=== PATIENT | female | born 1950 | race Caucasian/White ===

== ENCOUNTER → 2019-10-14 09:36 | Outpatient (BNVA) | payer MEDICARE, OTHER, SELFPAY | PROVIDERS: Family Provider Pediatrics; PCP Pediatrics; Visit Provider Internal Medicine Rheumatology | DX: M35.1 Other overlap syndromes (principal); M05.79 Rheumatoid arthritis with rheumatoid factor of multiple sites without organ or systems involvement; Z79.899 Other long term (current) drug therapy; Z79.52 Long term (current) use of systemic steroids | CPT/HCPCS: 36415; 82565; 84460; 85025; 85651; 86140; 99214 ==

== ENCOUNTER → 2019-10-17 17:01 | Outpatient (BNVA) | payer MEDICARE, OTHER, SELFPAY | PROVIDERS: Family Provider Pediatrics; PCP Pediatrics; Visit Provider Nurse Practitioner Family | DX: N39.0 Urinary tract infection, site not specified (principal) | CPT/HCPCS: 81003 ==

== ENCOUNTER → 2019-11-01 14:44 | Outpatient (BNVA) | payer MEDICARE, OTHER, SELFPAY | PROVIDERS: Family Provider Pediatrics; PCP Pediatrics; Referring Provider Internal Medicine Infectious Disease; Visit Provider Internal Medicine Rheumatology | DX: M32.9 Systemic lupus erythematosus, unspecified (principal); Z79.52 Long term (current) use of systemic steroids; M25.50 Pain in unspecified joint | CPT/HCPCS: 99214; G0463 ==

== ENCOUNTER → 2019-11-30 13:30 | Outpatient (BNVA) | payer MEDICARE, OTHER, SELFPAY | PROVIDERS: Family Provider Pediatrics; PCP Pediatrics; Visit Provider Internal Medicine Rheumatology | DX: M35.1 Other overlap syndromes (principal); Z79.52 Long term (current) use of systemic steroids; Z79.899 Other long term (current) drug therapy | CPT/HCPCS: 36415; 80076; 82565; 84439; 84443; 84481; 85025; 85651; 86140 ==

== ENCOUNTER → 2019-11-30 13:44 | Outpatient (BNVA) | payer MEDICARE, OTHER, SELFPAY | PROVIDERS: Family Provider Pediatrics; PCP Pediatrics | DX: M35.1 Other overlap syndromes (principal); Z79.52 Long term (current) use of systemic steroids; Z79.899 Other long term (current) drug therapy | CPT/HCPCS: 85025 ==

== ENCOUNTER 2019-12-06 09:27 | Outpatient (CLI) | payer MEDICARE, OTHER, SELFPAY ==
[2019-12-06 09:55] LABS: Basophils % 0.4 %; Eosinophils % 0.4 %; Hematocrit 46.2 % (37.0-47.0); Hemoglobin 14.3 g/dL (11.5-15.3); Lymphocytes # 0.8 10^3/uL (0.8-4.8); Lymphocytes % 16.2 %; Mean Corpuscular Hemoglobin 29.1 pg (28.0-34.0); Mean Corpuscular Volume 94.1 fL (81-99); Mean Platelet Volume 10.8 fL (7.4-10.4); Monocytes # 0.5 10^3/uL (0.2-0.9); Neutrophils # 3.8 10^3/uL (1.8-7.7); Neutrophils % 72.8 %; Nucleated Red Blood Cells % 0 %; Platelet Count 205 10^3/cmm (130-400); Red Blood Count 4.91 10^6/uL (4.1-5.3); Red Cell Distribution Width 14.5 % (12.1-15.1); White Blood Count 5.2 10^3/uL (4.0-10.0)
[2019-12-06 10:08] LABS: Blood Urea Nitrogen 36 mg/dL (8-23); C Reactive Protein 14.2 mg/L (0.0-4.9); Glomerular Filtration Rate 34.5 mL/min (90-130); Potassium 4.2 mmol/L (3.5-5.1); Sodium 142 mmol/L (136-145)
[2019-12-06 10:10] LABS: Complement C3 137 mg/dL (90-180)
[2019-12-06 10:18] LABS: Bilirubin Urine Neg (NEGATIVE); Blood Urine Neg (Negative); Glucose Urine UA Norm (Normal); Ketones Urine Negative (Negative); Leukocyte Esterase Urine Negative (Negative); Nitrate Urine Negative (Negative); Protein Urine Neg (Negative); Specific Gravity, Urine 1.025 (1.005-1.030); Urine Appearance Clear (CLEAR); Urine Color Yellow (Yellow); Urobilinogen Urine Norm (Negative)
[2019-12-06 10:28] LABS: Add Urine Culture? No; Bacteria Urine 1+; Mucus Urine TRACE; RBC Urine 0-4 /hpf (0-2); Squamous Epithelial Cell Urine RARE (0-5)
[2019-12-06 10:41] LABS: Urine Creatinine 137 mg/dL (28-217); Urine Protein Random 7 mg/dL
[2019-12-06 11:23] LABS: Urea Nitrogen,Urine Random 1147 mg/dL
== END 2019-12-06 09:28 | disposition home or self-care (01) ==
PROVIDERS: Family Provider Pediatrics; PCP Pediatrics; Visit Provider Internal Medicine Rheumatology
DX: M35.1 Other overlap syndromes (principal); Z79.52 Long term (current) use of systemic steroids; Z79.899 Other long term (current) drug therapy
CPT/HCPCS: 81001; 82565; 82570; 84132; 84156; 84295; 84520; 84540; 85025; 86140; 86160; 86225

== ENCOUNTER → 2019-12-28 14:32 | Outpatient (BNVA) | payer MEDICARE, OTHER, SELFPAY | PROVIDERS: Family Provider Pediatrics; PCP Pediatrics; Visit Provider Internal Medicine Rheumatology | DX: M35.9 Systemic involvement of connective tissue, unspecified (principal); Z79.899 Other long term (current) drug therapy; Z79.52 Long term (current) use of systemic steroids; R76.8 Other specified abnormal immunological findings in serum | CPT/HCPCS: 36415; 82565; 84520; 86140; G2012 ==

== ENCOUNTER → 2020-02-08 10:21 | Outpatient (BNVA) | payer MEDICARE, OTHER, SELFPAY | PROVIDERS: Family Provider Pediatrics; PCP Pediatrics; Visit Provider Internal Medicine Rheumatology | DX: Z79.899 Other long term (current) drug therapy (principal) | CPT/HCPCS: 36415; 80076; 82565; 85025; 85651; 86140 ==

== ENCOUNTER → 2020-03-21 15:24 | Outpatient (BNVA) | payer MEDICARE, OTHER, SELFPAY | PROVIDERS: Family Provider Pediatrics; PCP Pediatrics; Visit Provider Internal Medicine Rheumatology | DX: M32.19 Other organ or system involvement in systemic lupus erythematosus (principal); Z79.899 Other long term (current) drug therapy; R76.8 Other specified abnormal immunological findings in serum; Z79.52 Long term (current) use of systemic steroids; M19.90 Unspecified osteoarthritis, unspecified site; N28.9 Disorder of kidney and ureter, unspecified | CPT/HCPCS: 99214 ==

== ENCOUNTER → 2020-04-18 09:32 | Outpatient (BNVA) | payer MEDICARE, OTHER, SELFPAY | PROVIDERS: Family Provider Pediatrics; PCP Pediatrics; Visit Provider Internal Medicine Rheumatology | DX: M32.9 Systemic lupus erythematosus, unspecified (principal); M32.19 Other organ or system involvement in systemic lupus erythematosus; L93.2 Other local lupus erythematosus; M35.1 Other overlap syndromes; R76.8 Other specified abnormal immunological findings in serum; Z79.52 Long term (current) use of systemic steroids; Z79.899 Other long term (current) drug therapy | CPT/HCPCS: 36415; 80076; 81001; 82565; 82575; 84156; 85025; 85651; 86140; 86160 ==

== ENCOUNTER 2020-04-30 09:11 | Outpatient (CLI) | payer MEDICARE, OTHER, SELFPAY ==
[2020-04-30 10:16] LABS: Basophils % 0.9 %; Eosinophils # 0.1 10^3/uL (0.0-0.8); Eosinophils % 1.8 %; Hematocrit 42.5 % (37.0-47.0); Hemoglobin 12.9 g/dL (11.5-15.3); Lymphocytes # 0.9 10^3/uL (0.8-4.8); Lymphocytes % 27.3 %; Mean Corpuscular HGB Conc 30.4 g/dL (30.0-36.0); Mean Corpuscular Hemoglobin 29.9 pg (28.0-34.0); Mean Corpuscular Volume 98.6 fL (81-99); Mean Platelet Volume 12.3 fL (7.4-10.4); Monocytes # 0.4 10^3/uL (0.2-0.9); Monocytes % 11.6 %; Neutrophils # 1.96 10^3/uL (1.8-7.7); Neutrophils % 58.1 %; Nucleated Red Blood Cells % 0 %; Red Blood Count 4.31 10^6/uL (4.1-5.3); Red Cell Distribution Width 14.1 % (12.1-15.1); White Blood Count 3.4 10^3/uL (4.0-10.0)
[2020-04-30 10:22] LABS: Bilirubin Urine Neg (NEGATIVE); Blood Urine Neg (Negative); Glucose Urine UA Norm (Normal); Ketones Urine Negative (Negative); Leukocyte Esterase Urine Negative (Negative); Nitrate Urine Positive (Negative); Protein Urine Neg (Negative); Specific Gravity, Urine 1.025 (1.005-1.030); Urine Appearance Hazy (CLEAR); Urine Color Yellow (Yellow); Urobilinogen Urine Norm (Negative); pH Urine 5 (5-7)
[2020-04-30 10:23] LABS: Bacteria Urine 4+; Calcium Oxalate Crystals Urine 0-4 /hpf
[2020-04-30 10:24] LABS: Add Urine Culture? Yes; RBC Urine 0-4 /hpf (0-2); Squamous Epithelial Cell Urine 0-4 (0-5)
[2020-04-30 10:33] LABS: Alanine Aminotransferase 37 U/L (0-33); Albumin Level 3.8 g/dL (3.5-5.2); Alkaline Phosphatase 62 IU/L (35-105); Aspartate Amino Transferase 38 U/L (0-32); C Reactive Protein 6.7 mg/L (0.0-4.9); Globulin 3.1 g/dL (1.3-4.6); Total Bilirubin 0.5 mg/dL (0.15-1.2); Total Protein 6.9 g/dL (6.6-8.7)
[2020-04-30 10:40] LABS: Urine Creatinine 193 mg/dL (28-217); Urine Protein Random 14 mg/dL
[2020-04-30 10:49] LABS: Platelet Count 105 10^3/cmm (130-400)
[2020-04-30 10:50] LABS: Slide Review Slide Review Perform
[2020-04-30 11:01] LABS: Complement C3 113 mg/dL (90-180)
[2020-04-30 11:07] LABS: Erythrocyte Sedimentation Rate 19 mm/hr (0-15)
== END 2020-04-30 09:12 | disposition home or self-care (01) ==
LOC: LAB 09:16
PROVIDERS: PCP Pediatrics; Visit Provider Internal Medicine Rheumatology
DX: Z79.899 Other long term (current) drug therapy (principal); R76.8 Other specified abnormal immunological findings in serum
CPT/HCPCS: 80076; 81001; 82565; 82570; 84156; 85025; 85651; 86140; 86160

== ENCOUNTER → 2020-06-19 13:48 | Outpatient (BNVA) | payer MEDICARE, OTHER, SELFPAY | PROVIDERS: PCP Pediatrics; Visit Provider Internal Medicine Rheumatology | DX: M32.19 Other organ or system involvement in systemic lupus erythematosus (principal); Z79.899 Other long term (current) drug therapy; R76.8 Other specified abnormal immunological findings in serum; M19.90 Unspecified osteoarthritis, unspecified site; Z79.52 Long term (current) use of systemic steroids | CPT/HCPCS: 36415; 85025; 99214 ==

== ENCOUNTER → 2020-06-24 10:06 | Outpatient (BNVA) | payer MEDICARE, OTHER, SELFPAY | PROVIDERS: PCP Pediatrics | DX: R68.89 Other general symptoms and signs (principal); Z20.828 Contact with and (suspected) exposure to other viral communicable diseases | CPT/HCPCS: 87635 ==

== ENCOUNTER → 2020-07-23 16:05 | Outpatient (BNVA) | payer MEDICARE, OTHER, SELFPAY | PROVIDERS: PCP Pediatrics; Visit Provider Pediatrics | DX: Z11.59 Encounter for screening for other viral diseases (principal) | CPT/HCPCS: 87635 ==

== ENCOUNTER 2020-09-24 11:56 | Outpatient (CLI) | payer MEDICARE, OTHER, SELFPAY ==
[2020-09-24 12:43] LABS: Basophils % 0.5 %; Eosinophils # 0.1 10^3/uL (0.0-0.8); Hematocrit 48.7 % (37.0-47.0); Hemoglobin 14.9 g/dL (11.5-15.3); Lymphocytes # 1.7 10^3/uL (0.8-4.8); Lymphocytes % 21.7 %; Mean Corpuscular HGB Conc 30.6 g/dL (30.0-36.0); Mean Corpuscular Hemoglobin 30.1 pg (28.0-34.0); Mean Corpuscular Volume 98.4 fL (81-99); Mean Platelet Volume 10.5 fL (7.4-10.4); Monocytes # 0.8 10^3/uL (0.2-0.9); Monocytes % 9.6 %; Neutrophils # 5.26 10^3/uL (1.8-7.7); Neutrophils % 66.8 %; Nucleated Red Blood Cells % 0 %; Platelet Count 215 10^3/cmm (130-400); Red Blood Count 4.95 10^6/uL (4.1-5.3); Red Cell Distribution Width 13.6 % (12.1-15.1); White Blood Count 7.9 10^3/uL (4.0-10.0)
[2020-09-24 13:00] LABS: Alanine Aminotransferase 34 U/L (0-33); Albumin Level 4.2 g/dL (3.5-5.2); Alkaline Phosphatase 51 IU/L (35-105); Aspartate Amino Transferase 27 U/L (0-32); Globulin 3.1 g/dL (1.3-4.6); Glomerular Filtration Rate 49.2 mL/min (90-130); Total Bilirubin 0.3 mg/dL (0.15-1.2); Total Protein 7.3 g/dL (6.6-8.7)
[2020-09-24 13:09] LABS: Add Urine Culture? No; Bacteria Urine 1+ /hpf; Bilirubin Urine Neg (Negative); Blood Urine Neg (Negative); Glucose Urine UA Norm (Normal); Ketones Urine Negative (Negative); Leukocyte Esterase Urine Trace (Negative); Nitrate Urine Negative (Negative); Protein Urine Neg (Negative); RBC Urine 0-4 /hpf (0-2); Specific Gravity, Urine 1.015 (1.005-1.030); Squamous Epithelial Cell Urine 0-4 /hpf (0-5); Urine Appearance SL Hazy (CLEAR); Urine Color Yellow (Yellow); Urine Creatinine 69 mg/dL (28-217); Urine Protein Random 5 mg/dL; Urobilinogen Urine Norm (Negative); pH Urine 6.5 (5-7)
[2020-09-24 13:15] LABS: Complement C3 145 mg/dL (90-180)
== END 2020-09-24 11:57 | disposition home or self-care (01) ==
LOC: LAB 12:05
PROVIDERS: PCP Pediatrics; Visit Provider Internal Medicine Rheumatology
DX: R76.8 Other specified abnormal immunological findings in serum (principal); M32.19 Other organ or system involvement in systemic lupus erythematosus; Z79.899 Other long term (current) drug therapy
CPT/HCPCS: 36415; 80076; 81001; 82565; 82570; 84156; 85025; 86160

== ENCOUNTER → 2021-01-09 12:47 | Outpatient (BNVA) | payer MEDICARE, OTHER, SELFPAY | PROVIDERS: PCP Pediatrics; Visit Provider Internal Medicine Rheumatology | DX: M32.19 Other organ or system involvement in systemic lupus erythematosus (principal); Z79.899 Other long term (current) drug therapy; R76.8 Other specified abnormal immunological findings in serum; M05.9 Rheumatoid arthritis with rheumatoid factor, unspecified | CPT/HCPCS: 99214 ==

== ENCOUNTER → 2021-01-10 09:09 | Outpatient (BNVA) | payer MEDICARE, OTHER, SELFPAY | PROVIDERS: PCP Pediatrics; Visit Provider Internal Medicine Rheumatology | DX: M32.19 Other organ or system involvement in systemic lupus erythematosus (principal); R76.8 Other specified abnormal immunological findings in serum; Z79.899 Other long term (current) drug therapy | CPT/HCPCS: 36415; 80076; 81001; 82565; 82570; 84156; 85025 ==

== ENCOUNTER → 2021-05-01 12:20 | Outpatient (BNVA) | payer MEDICARE, OTHER, SELFPAY | PROVIDERS: PCP Pediatrics; Visit Provider Nurse Practitioner Family | DX: Z20.822 Contact with and (suspected) exposure to COVID-19 (principal); J06.9 Acute upper respiratory infection, unspecified | CPT/HCPCS: 87635 ==

== ENCOUNTER 2021-05-08 13:28 | Emergency (ER) | payer MEDICARE, OTHER, SELFPAY ==
[2021-05-08 14:05] VITALS: BP 100/65; PULSE 73; RESP 22; TEMP 37.2; O2SAT 90; BMI 25.0
--- NOTE | 2021-05-08 15:21 | XR_ITS ---
WS: [id number] Portable AP upright chest, 05/08/2021 Clinical Data: sob Comparison: None. Findings: No nodules, masses or effusions are seen. The heart is normal. The pulmonary vascularity is not increased. No pneumonia or pneumothorax is seen. There are minimal patchy opacities in the lower lobes which may represent atelectasis or minimal pneumonia. XR/XR chest 1V portable [id number] Impression: Minimal patchy lower lobe opacities which may represent atelectasis and/or mini mal pneumonia.
--- NOTE | 2021-05-08 15:22 | ECG_ITS ---
[facility] Test Date: 2021-05-08 Pat Name: Bruna Nye Department: Room: Gender: Female Sales Promotion Representative: : 1950 Requested By: Rio To Order Number: [id number] Phan MD: Clara Cosme M.D. Measurements Intervals [place] Rate: 69 P: 34 MN: 148 QRS: 52 QRSD: 86 T: 47 QT: 405 QTc: 434 Interpretive Statements SINUS RHYTHM No previous ECG available for comparison Electronically Signed On 05-08-2021 20:23:02 CDT by Clara Cosme M.D. [id number]
--- NOTE | 2021-05-08 15:48 | W.ED.COVID ---
HPI - COVID General: Chief Complaint: COVID symptoms Stated Complaint: COVID +, SOB Time Seen by Provider: 05/08/21 15:32 Triage information: Has fever, cough or shortness of breath. Exposure to COVID + person last 14 days History of Present Illness: HPI Narrative: 70-year-old female with a history of systemic lupus. She presents emergency room known Covid positive she tested positive on 05/01 she is on day 9 of symptoms. She is complaining of persistent fever myalgias. Cough is been nonproductive. She was directed here by her primary care doctor for shortness of breath and persistent fever. He has not received monoclonal antibodies to this point MD complaint: known COVID positive Prior covid testing: yes, results known Prior testing date: 05/01/21 COVID 19 common symptoms: positive fever(s), chills, cough, non-productive cough, dyspnea, fatigue and body aches; negative throat pain, nasal congestion, nausea, vomiting or diarrhea COVID 19 other sytmptoms: negative chest pain or requiring oxygen Onset (ago): day(s) (9) Severity: mild Pertinent comorbid conditions: immunocompromised state Treatment prior to arrival: none COVID Results: SARS-CoV-2 RNA (RT-PCR) Detected (NOT DETECTED) A 05/01/21 12:20 05/01/21 Review of Systems Const: Reports: fever(s), chills, body aches and fatigue ENMT: Denies: throat pain, ear or mastoid pain, nasal discharge or nasal congestion Card: Denies: chest pain, edema, dyspnea on exertion or orthopnea Resp: Reports: dyspnea and non-productive cough GI: Denies: abdominal pain, nausea, vomiting, hematemesis, coffee ground emesis, diarrhea, constipation, bloating, hematochezia or melena : Denies: flank pain, difficulty voiding, dysuria, urinary frequency or urinary urgency Skin/Breast: Denies: rash or pruritus PFSH ED PFSH: Medical History Cutaneous lupus erythematosus High risk medication use HTN (hypertension) Immunization counseling Inflammatory arthritis PMR (polymyalgia rheumatica) Positive MARIA DE JESUS (antinuclear antibody) Positive double stranded DNA antibody test SLE (systemic lupus erythematosus) Undifferentiated connective tissue disease Surgical History History of 2 sections History of hysterectomy Hx of tonsillectomy Family History Father Heart disease Other CAD (coronary artery disease) Diabetes Family history of premature coronary artery disease Hypertension Multiple sclerosis Rheumatoid arthritis Systemic lupus erythematosus (SLE) in adult Denies family history of Chronic kidney disease (CKD) Cancer Stroke Social History Smoking and tobacco status: never smoked Alcohol intake: never History of recent travel: No (10/14/2019) Physical Exam Const: COMMON NORMALS: no acute distress GENERAL APPEARANCE: cooperative and comfortable ORIENTATION/CONSCIOUSNESS: Yes awake, Yes oriented to person, Yes oriented to place and Yes oriented to time HENMT: COMMON NORMALS: normocephalic, atraumatic, hearing grossly normal bilaterally and external ears normal HEAD & SCALP: normocephalic and atraumatic EXTERNAL EAR: Yes external ears normal Neck/C-Spine: COMMON NORMALS: no JVD Resp: COMMON NORMALS: normal respiratory effort, No retractions, No use of accessory muscles and clear to auscultation bilaterally AUSCULTATION: clear to auscultation bilaterally Cardio: COMMON NORMALS: no JVD, regular rate, regular rhythm and No murmurs present (Cardio) RATE: regular rate RHYTHM: regular rhythm GI: COMMON NORMALS: Soft to palpation and No hepatosplenomegaly present AUSCULTATION: Yes normoactive bowel sounds PALPATION: Yes Soft to palpation, No Tenderness to palpation present (GI), No Guarding due to palpation present (GI) and Yes No hepatosplenomegaly present Extremity: COMMON NORMALS: normal to inspection, capillary refill normal, no clubbing, cyanosis or edema, no calf tenderness and no pedal edema Neuro: SENSORIUM/ORIENTATION: Yes oriented to person, Yes oriented to place and Yes oriented to time Skin: COMMON NORMALS: no rashes or lesions noted GENERAL SKIN EXAM: no rashes or lesions noted Course Vital Signs: Vital signs: Vital Signs Temperature 100.8 F H 05/08/21 17:26 Pulse Rate 86 05/08/21 19:39 Respiratory Rate 24 H 05/08/21 19:39 Blood Pressure 136/84 05/08/21 19:39 Pulse Oximetry 87 L 05/08/21 19:39 MDM - COVID MDM Narrative: Medical decision making narrative: Discussed antibody infusion the patient however she is not a candidate because she feels her home O2 test will discharge home on oxygen start dexamethasone hold her other prednisone follow-up with her primary care doctor Lab Data: Labs: Lab Results 05/08/21 05/08/21 05/08/21 Range/Units 16:00 16:00 16:00 WBC 6.5 (4.0-10.0) 10^3/ uL RBC 4.66 (4.1-5.3) 10^6/u L Hgb 14.1 (11.5-15.3) g/dL Hct 44.4 (37.0-47.0) % MCV 95.3 (81-99) fL MCH 30.3 (28.0-34.0) pg MCHC 31.8 (30.0-36.0) g/dL RDW 13.2 (12.1-15.1) % Plt Count 135 (130-400) 10^3/c mm MPV 11.3 H (7.4-10.4) fL Neut % (Auto) 84.2 % Lymph % (Auto) 8.3 % Shannon % (Auto) 6.8 % Eos % (Auto) 0.2 % Baso % (Auto) 0.2 % Neut # (Auto) 5.49 (1.8-7.7) 10^3/u L Lymph # (Auto) 0.5 L (0.8-4.8) 10^3/u L Shannon # (Auto) 0.4 (0.2-0.9) 10^3/u L Eos # (Auto) 0.0 (0.0-0.8) 10^3/u L Baso # (Auto) 0.0 (0.0-0.1) 10^3/u L Nucleated RBC % (a uto) 0 % Nucleated RBCs # 0.0 /100WBC D-Dimer 0.65 H (0-0.59) ug/mIFE U Specimen Type Sample Site ABG pH (7.35-7.45) ABG pCO2 (35-45) mmHg ABG pO2 (80.0-100.0) mmH g ABG HCO3 (22-26) mmol/L ABG O2 Saturation ABG Base Excess (-2.0-2.0) mmol/ L Cory Test A-a O2 Gradient (5-10) mmHg Hematocrit (37-47) % Hgb O2 Saturation (95-100) % Carboxyhemoglobin (0.4-20.1) %THgb Methemoglobin (0.4-1.5) % Total Hemoglobin (12-16) g/dL Ionized Calcium (1.1-1.4) mmol/L O2 Delivery Device FiO2 % Final Inspector Truck Trailer ID Sodium 140 (136-145) mmol/L Potassium 4.2 (3.5-5.1) mmol/L Chloride 100 (98-107) mmol/L Carbon Dioxide 27 (22-29) mmol/L Anion Gap 17.2 (5-19) BUN 22 (8-23) mg/dL Creatinine 1.3 H (0.5-0.9) mg/dL GFR Calculation 40.5 L (90-130) mL/min Glucose 73 (65-115) mg/dL Calculated Osmolal ity 292 (285-295) mOsm/k g Calcium 8.2 L (8.5-10.5) mg/dL Total Bilirubin 0.4 (0.15-1.2) mg/dL AST 32 (0-32) U/L ALT 18 (0-33) U/L Alkaline Phosphata se 42 (35-105) IU/L Troponin T Baselin e (0-10) ng/L Troponin T 120 Min [place] (0-10) ng/L Delta Troponin T (0-10) ABS# C-Reactive Protein 158.1 H (0.0-4.9) mg/L NT-Pro-B Natriuret Pep 237 H (0-125) pg/mL Total Protein 6.0 L (6.6-8.7) g/dL Albumin 3.4 L (3.5-5.2) g/dL Globulin 2.6 (1.3-4.6) g/dL Lipase 88 H (13-60) U/L Procalcitonin 0.28 (0-0.5) ng/mL 05/08/21 05/08/21 05/08/21 Range/Units 16:00 16:39 18:15 WBC (4.0-10.0) 10^3/ uL RBC (4.1-5.3) 10^6/u L Hgb (11.5-15.3) g/dL Hct (37.0-47.0) % MCV (81-99) fL MCH (28.0-34.0) pg MCHC (30.0-36.0) g/dL RDW (12.1-15.1) % Plt Count (130-400) 10^3/c mm MPV (7.4-10.4) fL Neut % (Auto) % Lymph % (Auto) % Shannon % (Auto) % Eos % (Auto) % Baso % (Auto) % Neut # (Auto) (1.8-7.7) 10^3/u L Lymph # (Auto) (0.8-4.8) 10^3/u L Shannon # (Auto) (0.2-0.9) 10^3/u L Eos # (Auto) (0.0-0.8) 10^3/u L Baso # (Auto) (0.0-0.1) 10^3/u L Nucleated RBC % (a uto) % Nucleated RBCs # /100WBC D-Dimer (0-0.59) ug/mIFE U Specimen Type Arterial Sample Site Brachial, right ABG pH 7.47 H (7.35-7.45) ABG pCO2 36.7 (35-45) mmHg ABG pO2 55.9 L (80.0-100.0) mmH g ABG HCO3 26.9 H (22-26) mmol/L ABG O2 Saturation 90.9 ABG Base Excess 3.3 H (-2.0-2.0) mmol/ L Cory Test N/a A-a O2 Gradient 6.3 (5-10) mmHg Hematocrit 44.3 (37-47) % Hgb O2 Saturation 89.2 L (95-100) % Carboxyhemoglobin 1.0 (0.4-20.1) %THgb Methemoglobin 0.8 (0.4-1.5) % Total Hemoglobin 14.5 (12-16) g/dL Ionized Calcium 1.2 (1.1-1.4) mmol/L O2 Delivery Device Room air FiO2 21.0 % Final Inspector Truck Trailer ID Amh Sodium 140.0 (136-145) mmol/L Potassium 3.7 (3.5-5.1) mmol/L Chloride (98-107) mmol/L Carbon Dioxide (22-29) mmol/L Anion Gap (5-19) BUN (8-23) mg/dL Creatinine (0.5-0.9) mg/dL GFR Calculation (90-130) mL/min Glucose 81.0 (65-115) mg/dL Calculated Osmolal ity (285-295) mOsm/k g Calcium (8.5-10.5) mg/dL Total Bilirubin (0.15-1.2) mg/dL AST (0-32) U/L ALT (0-33) U/L Alkaline Phosphata se (35-105) IU/L Troponin T Baselin e 13 H (0-10) ng/L Troponin T 120 Min [place] 13.68 H (0-10) ng/L Delta Troponin T 0.68 (0-10) ABS# C-Reactive Protein (0.0-4.9) mg/L NT-Pro-B Natriuret Pep (0-125) pg/mL Total Protein (6.6-8.7) g/dL Albumin (3.5-5.2) g/dL Globulin (1.3-4.6) g/dL Lipase (13-60) U/L Procalcitonin (0-0.5) ng/mL COVID Results: SARS-CoV-2 RNA (RT-PCR) Detected (NOT DETECTED) A 05/01/21 12:20 05/01/21 Discharge Plan Discharge Patient Disposition: Home Clinical Impression: COVID-19, SLE (systemic lupus erythematosus) Condition: Stable Prescriptions: New dexamethasone 6 mg tablet 6 mg PO DAILY Qty: 7 RF: 0 Held prednisone 5 mg tablet 7.5 mg PO BEDTIME RF: 0 Hold Instructions: Resume on 05/15/21. No Action glucosamine sulfate 1,000 mg capsule 1,000 mg PO BEDTIME RF: 0 omega-3 fatty acids [Fish Oil Concentrate] 1,000 mg capsule 1,000 mg PO BEDTIME RF: 0 cetirizine [Zyrtec] 10 mg tablet 10 mg PO DAILY PRN (Reason: Allergy Symptoms) RF: 0 biotin 1,000 mcg tablet,chewable 1,000 mcg PO BEDTIME RF: 0 aspirin [Aspirin Low Dose] 81 mg tablet,delayed release (DR/EC) 81 mg PO BEDTIME RF: 0 calcium carbonate 600 mg calcium (1,500 mg) tablet 600 mg PO BID RF: 0 alendronate [Fosamax] 70 mg tablet 70 mg PO Q7D RF: 0 tumeric 1 cap PO BEDTIME RF: 0 cholecalciferol (vitamin D3) 25 mcg (1,000 unit) capsule 2,000 unit PO QAM RF: 0 triamterene-hydrochlorothiazid 37.5-25 mg tablet 1 tab PO EVERY OTHER DAY RF: 0 Emergen-C 500 mg Tablet,Chewable 1 tab PO DAILY RF: 0 zinc 1 cap PO DAILY RF: 0 omeprazole 20 mg capsule,delayed release(DR/EC) 20 mg PO BEDTIME RF: 0 Plaquenil 200 mg tablet See Rx Instructions .ROUTE .COMPLEX RF: 0 Discharge Orders: Discharge ED (Routine); Ordered 05/08/21 Ordered By: Greg Roland Other Ambulatory Orders: DME: Oxygen (Order) Location: None Selected Ordered By: Greg Roland Referrals: Jimmy Ballesteros MD [Primary Care Provider] - Patient Instructions: Opioid Safety Activity Restrictions/Additional Instructions: Monitor oxygen saturations at home. If they worsen return. Coding Level of Care Code ED Pct for Steffanie Fwernst Exam Comprehensive
[2021-05-08 16:01] VITALS: BP 123/62; PULSE 80; RESP 20; O2SAT 96
[2021-05-08 16:10] LABS: Basophils % 0.2 %; Eosinophils % 0.2 %; Hematocrit 44.4 % (37.0-47.0); Hemoglobin 14.1 g/dL (11.5-15.3); Lymphocytes # 0.5 10^3/uL (0.8-4.8); Lymphocytes % 8.3 %; Mean Corpuscular HGB Conc 31.8 g/dL (30.0-36.0); Mean Corpuscular Hemoglobin 30.3 pg (28.0-34.0); Mean Corpuscular Volume 95.3 fL (81-99); Mean Platelet Volume 11.3 fL (7.4-10.4); Monocytes # 0.4 10^3/uL (0.2-0.9); Monocytes % 6.8 %; Neutrophils # 5.49 10^3/uL (1.8-7.7); Neutrophils % 84.2 %; Nucleated Red Blood Cells % 0 %; Platelet Count 135 10^3/cmm (130-400); Red Blood Count 4.66 10^6/uL (4.1-5.3); Red Cell Distribution Width 13.2 % (12.1-15.1); White Blood Count 6.5 10^3/uL (4.0-10.0)
[2021-05-08 16:22] LABS: D Dimer 0.65 ug/mIFEU (0-0.59)
[2021-05-08 16:35] LABS: NT Pro B Type Natriuretic Pept 237 pg/mL (0-125); Procalcitonin 0.28 ng/mL (0-0.5)
[2021-05-08 16:46] LABS: Alanine Aminotransferase 18 U/L (0-33); Albumin Level 3.4 g/dL (3.5-5.2); Alkaline Phosphatase 42 IU/L (35-105); Aspartate Amino Transferase 32 U/L (0-32); Blood Urea Nitrogen 22 mg/dL (8-23); C Reactive Protein 158.1 mg/L (0.0-4.9); Calcium 8.2 mg/dL (8.5-10.5); Carbon Dioxide 27 mmol/L (22-29); Chloride 100 mmol/L (98-107); Globulin 2.6 g/dL (1.3-4.6); Glomerular Filtration Rate 40.5 mL/min (90-130); Glucose 73 mg/dL (65-115); Lipase 88 U/L (13-60); Osmolality Calculated 292 mOsm/kg (285-295); Sodium 140 mmol/L (136-145); Total Bilirubin 0.4 mg/dL (0.15-1.2)
[2021-05-08 16:50] LABS: Troponin(5th) Baseline 13 ng/L (0-10)
[2021-05-08 16:50] LABS: ABG PCO2 36.7 mmHg (35-45); ABG PH Result 7.47 (7.35-7.45); Alveolar-Arterial Oxygen Gradi 6.3 mmHg (5-10); Arterial Blood Gas Hematocrit 44.3 % (37-47); Base Excess ABG 3.3 mmol/L (-2.0-2.0); Blood Gas Operator Identificat AMH; Blood Gas Sample Site Brachial, right; Blood Gas Sample Type Arterial; HCO3 ABG 26.9 mmol/L (22-26); HGB O2 Sat 89.2 % (95-100); Ionized Calcium Level - ABG 1.2 mmol/L (1.1-1.4); Methemoglobin 0.8 % (0.4-1.5); Oxygen Device ROOM AIR; Oxygen Saturation ABG 90.9; PO2 ABG 55.9 mmHg (80.0-100.0); Potassium Level - ABG 3.7 mmol/L (3.5-5.0); Total Hemoglobin 14.5 g/dL (12-16)
[2021-05-08 17:00] LABS: Anion Gap 17.2 (5-19); Potassium 4.2 mmol/L (3.5-5.1)
--- NOTE | 2021-05-08 17:22 | ECG_ITS ---
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 Measurements Intervals [place] Rate: 69 P: 50 MS: 138 QRS: 35 QRSD: 85 T: 41 QT: 398 QTc: 429 Interpretive Statements SINUS RHYTHM Compared to ECG 05/08/2021 15:59:49 No significant changes Electronically Signed On 05-09-2021 12:37:44 CDT by Clara Cosme M.D. [id number]
[2021-05-08 17:26] VITALS: BP 130/79; TEMP 38.2
[2021-05-08] MEDS: acetaminophen 500 mg Tablet 1000 MG PO (17:34)
[2021-05-08 17:42] VITALS: O2SAT 85; O2SAT 91; O2SAT 93
[2021-05-08 18:19] VITALS: BP 112/47; RESP 18; O2SAT 96
[2021-05-08 19:24] LABS: Troponin 5 2HR 13.68 ng/L (0-10); Troponin 5 2HR Delta 0.68 ABS# (0-10)
[2021-05-08 19:39] VITALS: BP 136/84; PULSE 86; RESP 24; O2SAT 87
== END 2021-05-08 19:35 | disposition home or self-care (01) ==
PROVIDERS: Physician Assistant; Emergency Provider Family Medicine; PCP Pediatrics
DX: U07.1 COVID-19 (principal); M32.9 Systemic lupus erythematosus, unspecified; Z79.82 Long term (current) use of aspirin; I10 Essential (primary) hypertension
CPT/HCPCS: 36600; 71045; 80051; 80053; 82330; 82805; 83690; 83880; 84145; 84484; 85025; 85378; 86140; 87040; 93005; 99284

== ENCOUNTER 2021-05-13 18:36 | Inpatient (IN) | payer MEDICARE, OTHER, SELFPAY ==
[2021-05-13] VITALS (8 sets, daily range): BP systolic 124–148; BP diastolic 70–98; PULSE 72–106; RESP 18–30; O2SAT 92–98; BMI 25.0
--- NOTE | 2021-05-13 19:08 | ECG_ITS ---
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 Measurements Intervals [place] Rate: 86 P: 45 RI: 137 QRS: 17 QRSD: 91 T: 34 QT: 368 QTc: 441 Interpretive Statements SINUS RHYTHM POSSIBLE LEFT ATRIAL ENLARGEMENT [-0.1mV P WAVE IN V1/V2] Compared to ECG 05/08/2021 17:59:21 No significant changes Electronically Signed On 05-16-2021 7:46:32 CDT by Clara Cosme M.D. [id number]
--- NOTE | 2021-05-13 19:08 | XRR_ITS ---
PROCEDURE INFORMATION: Exam: XR Chest Exam date and time: 05/13/2021 7:08 PM Age: 70 years old Clinical indication: Shortness of breath; Additional info: SOB TECHNIQUE: Imaging protocol: XR of the chest. Views: 1 view. COMPARISON: CR XR chest 1V portable [id number] 05/08/2021 3:23 PM FINDINGS: Lungs: Airspace opacities have increased in the lung bases, left greater than right, and right upper lobe. Linear atelectasis in the right mid lung and lung bases. Pleural spaces: Unremarkable. No pleural effusion. No pneumothorax. Heart/Mediastinum: Unremarkable. No cardiomegaly. Bones/joints: Unremarkable. XR/XR chest 1V portable [id number] IMPRESSION: 1. Multilobar pneumonia.
--- NOTE | 2021-05-13 19:13 | ED_ITS ---
HPI - SOB/Dyspnea General: Chief Complaint: ER Hold Stated Complaint: COVID POSITIVE/ RESPIRATORY DISTRESS Time Seen by Provider: 05/13/21 19:01 Source: patient and EMS Mode of arrival: EMS Limitations: no limitations History of Present Illness: HPI Narrative: 70-year-old female is here by EMS. Patient was diagnosed with Covid roughly 10 to 11 days ago. She was seen here in the ER 4 days ago and sent home on home oxygen. States she been on 4 L but got much worse today. Patient is currently on nonrebreather by EMS. She has had worsening shortness of breath. She denies any improving or worsening factors at home. She states she is not been able to do any activity that without getting severely dyspneic. Denies any chest pain. Associated symptoms: Reports fever(s); Deny abdominal pain, chest pain, nausea or vomiting Review of Systems 2 Const: Reports: fever(s), chills and body aches; Denies: change in appetite Eyes: Denies: blurry vision or eye discomfort ENMT: Denies: throat pain or dental pain Card: Denies: chest pain Resp: Reports: dyspnea and non-productive cough GI: Denies: abdominal pain, nausea, vomiting or diarrhea : Denies: dysuria Musc: Denies: neck pain or back pain Skin/Breast: Denies: rash Neuro: Denies: headache(s) Psych: Denies: depression Clarence/Lymph: Denies: easy bruising All/Imm: Denies: urticaria PFSH ED PFSH: Medical History Cutaneous lupus erythematosus High risk medication use HTN (hypertension) Immunization counseling Inflammatory arthritis PMR (polymyalgia rheumatica) Positive MARIA DE JESUS (antinuclear antibody) Positive double stranded DNA antibody test SLE (systemic lupus erythematosus) Undifferentiated connective tissue disease Surgical History History of 2 sections History of hysterectomy Hx of tonsillectomy Family History Father Heart disease Other CAD (coronary artery disease) Diabetes Family history of premature coronary artery disease Hypertension Multiple sclerosis Rheumatoid arthritis Systemic lupus erythematosus (SLE) in adult Denies family history of Chronic kidney disease (CKD) Cancer Stroke Social History Smoking and tobacco status: never smoked Alcohol intake: never History of recent travel: No (10/14/2019) Physical Exam Const: COMMON NORMALS: patient oriented x3 GENERAL APPEARANCE: in distress and ill appearing HENMT: COMMON NORMALS: normocephalic and atraumatic HEAD & SCALP: normocephalic and atraumatic Eye: COMMON NORMALS: Equal, round and reactive pupils present and EOMs intact bilaterally PUPIL: Yes Equal, round and reactive pupils present Neck/C-Spine: COMMON NORMALS: full ROM and supple Chest: COMMONS NORMALS: normal inspection of the chest and normal palpation of entire chest wall Resp: EFFORT & INSPECTION: Yes tachypneic, Yes respiratory distress and Yes labored AUSCULTATION: rales Cardio: COMMON NORMALS: regular rate, regular rhythm and No murmurs present (Cardio) RATE: regular rate RHYTHM: regular rhythm GI: COMMON NORMALS: Normal to inspection, nondistended, normoactive bowel sounds present, Soft to palpation, non-tender and no masses PALPATION: Yes Soft to palpation Extremity: COMMON NORMALS: normal to inspection and full ROM Neuro: COMMON NORMALS: patient oriented x3, moves all extremities and no focal motor deficits Psych: COMMON NORMALS: mental status grossly normal, Normal thought process present and cooperative THOUGHT PROCESS: Normal thought process present Skin: COMMON NORMALS: no rashes or lesions noted and no wounds GENERAL SKIN EXAM: no rashes or lesions noted Course Vital Signs: Vital signs: Vital Signs Pulse Rate 65 05/14/21 02:03 Respiratory Rate 30 H 05/14/21 02:03 Blood Pressure 117/62 05/14/21 02:03 Pulse Oximetry 98 05/14/21 02:03 MDM - SOB/Dyspnea MDM Narrative: Medical decision making narrative: Patient presents here with Covid pneumonia doing well on BiPAP currently. I spoke to Dr. Jerome Gregorio who is admitting physician will hold for ICU admit. Lab Data: Labs: Lab Results 05/13/21 05/13/21 05/13/21 Range/Units 19:08 19:20 19:20 WBC 11.1 H (4.0-10.0) 10^3/ uL RBC 5.03 (4.1-5.3) 10^6/u L Hgb 15.0 (11.5-15.3) g/dL Hct 46.8 (37.0-47.0) % MCV 93.0 (81-99) fL MCH 29.8 (28.0-34.0) pg MCHC 32.1 (30.0-36.0) g/dL RDW 13.1 (12.1-15.1) % Plt Count 259 (130-400) 10^3/c mm MPV 10.7 H (7.4-10.4) fL Neut % (Auto) 86.6 % Lymph % (Auto) 7.2 % [place] % (Auto) 4.9 % Eos % (Auto) 0.0 % Baso % (Auto) 0.2 % Neut # (Auto) 9.59 H (1.8-7.7) 10^3/u L Lymph # (Auto) 0.8 (0.8-4.8) 10^3/u L [place] # (Auto) 0.5 (0.2-0.9) 10^3/u L Eos # (Auto) 0.0 (0.0-0.8) 10^3/u L Baso # (Auto) 0.0 (0.0-0.1) 10^3/u L Nucleated RBC % (a uto) 0 % Nucleated RBCs # 0.0 /100WBC D-Dimer (0-0.59) ug/mIFE U Specimen Type Arterial Sample Site ABG pH 7.58 H* (7.35-7.45) ABG pCO2 29.4 L (35-45) mmHg ABG pO2 50.0 L (80.0-100.0) mmH g ABG HCO3 27.3 H (22-26) mmol/L ABG Base Excess 6.1 H (-2.0-2.0) mmol/ L Cory Test Pos Hematocrit 45.8 (37-47) % O2 Delivery Device Hfnc O2 Liters/Min 15.0 % FiO2 % Mode BiPAP Specimen Drawn By Utility Helicopter Repairer CONCHA Tierney Sodium 140 (136-145) mmol/L Potassium 3.9 (3.5-5.1) mmol/L Chloride 97 L (98-107) mmol/L Carbon Dioxide 26 (22-29) mmol/L Anion Gap 20.9 H (5-19) BUN 27 H (8-23) mg/dL Creatinine 0.8 (0.5-0.9) mg/dL GFR Calculation 70.9 L (90-130) mL/min Glucose 63 L (65-115) mg/dL Calculated Osmolal ity 293 (285-295) mOsm/k g Lactic Acid (0.5-2.2) mmol/L Calcium 8.8 (8.5-10.5) mg/dL Total Bilirubin 0.4 (0.15-1.2) mg/dL AST 42 H (0-32) U/L ALT 34 H (0-33) U/L Alkaline Phosphata se 51 (35-105) IU/L C-Reactive Protein 113.3 H (0.0-4.9) mg/L NT-Pro-B Natriuret Pep 562 H (0-125) pg/mL Total Protein 6.6 (6.6-8.7) g/dL Albumin 3.3 L (3.5-5.2) g/dL Globulin 3.3 (1.3-4.6) g/dL Procalcitonin 0.11 (0-0.5) ng/mL 05/13/21 05/13/21 05/13/21 Range/Units 19:50 21:31 22:20 WBC (4.0-10.0) 10^3/ uL RBC (4.1-5.3) 10^6/u L Hgb (11.5-15.3) g/dL Hct (37.0-47.0) % MCV (81-99) fL MCH (28.0-34.0) pg MCHC (30.0-36.0) g/dL RDW (12.1-15.1) % Plt Count (130-400) 10^3/c mm MPV (7.4-10.4) fL Neut % (Auto) % Lymph % (Auto) % [place] % (Auto) % Eos % (Auto) % Baso % (Auto) % Neut # (Auto) (1.8-7.7) 10^3/u L Lymph # (Auto) (0.8-4.8) 10^3/u L [place] # (Auto) (0.2-0.9) 10^3/u L Eos # (Auto) (0.0-0.8) 10^3/u L Baso # (Auto) (0.0-0.1) 10^3/u L Nucleated RBC % (a uto) % Nucleated RBCs # /100WBC D-Dimer (0-0.59) ug/mIFE U Specimen Type Art Sample Site Left rad ABG pH 7.50 H (7.35-7.45) ABG pCO2 31.0 L (35-45) mmHg ABG pO2 58.0 L (80.0-100.0) mmH g ABG HCO3 24.4 (22-26) mmol/L ABG Base Excess 2.1 H (-2.0-2.0) mmol/ L Cory Test Pos Hematocrit 43.4 (37-47) % O2 Delivery Device Bipap O2 Liters/Min % FiO2 60.0 % Mode BiPAP 14/8 Specimen Drawn By [place]pe Utility Helicopter Repairer ID Sodium 135 L (136-145) mmol/L Potassium 3.9 (3.5-5.1) mmol/L Chloride 96 L (98-107) mmol/L Carbon Dioxide 26 (22-29) mmol/L Anion Gap 16.9 (5-19) BUN 25 H (8-23) mg/dL Creatinine 1.0 H (0.5-0.9) mg/dL GFR Calculation 54.8 L (90-130) mL/min Glucose 84 (65-115) mg/dL Calculated Osmolal ity 284 L (285-295) mOsm/k g Lactic Acid 1.7 (0.5-2.2) mmol/L Calcium 8.4 L (8.5-10.5) mg/dL Total Bilirubin 0.4 (0.15-1.2) mg/dL AST 36 H (0-32) U/L ALT 29 (0-33) U/L Alkaline Phosphata se 44 (35-105) IU/L C-Reactive Protein (0.0-4.9) mg/L NT-Pro-B Natriuret Pep (0-125) pg/mL Total Protein 6.5 L (6.6-8.7) g/dL Albumin 2.9 L (3.5-5.2) g/dL Globulin 3.6 (1.3-4.6) g/dL Procalcitonin (0-0.5) ng/mL 05/13/21 Range/Units 22:20 WBC (4.0-10.0) 10^3/ uL RBC (4.1-5.3) 10^6/u L Hgb (11.5-15.3) g/dL Hct (37.0-47.0) % MCV (81-99) fL MCH (28.0-34.0) pg MCHC (30.0-36.0) g/dL RDW (12.1-15.1) % Plt Count (130-400) 10^3/c mm MPV (7.4-10.4) fL Neut % (Auto) % Lymph % (Auto) % [place] % (Auto) % Eos % (Auto) % Baso % (Auto) % Neut # (Auto) (1.8-7.7) 10^3/u L Lymph # (Auto) (0.8-4.8) 10^3/u L [place] # (Auto) (0.2-0.9) 10^3/u L Eos # (Auto) (0.0-0.8) 10^3/u L Baso # (Auto) (0.0-0.1) 10^3/u L Nucleated RBC % (a uto) % Nucleated RBCs # /100WBC D-Dimer 3.43 H (0-0.59) ug/mIFE U Specimen Type Sample Site ABG pH (7.35-7.45) ABG pCO2 (35-45) mmHg ABG pO2 (80.0-100.0) mmH g ABG HCO3 (22-26) mmol/L ABG Base Excess (-2.0-2.0) mmol/ L Cory Test Hematocrit (37-47) % O2 Delivery Device O2 Liters/Min % FiO2 % Mode BiPAP Specimen Drawn By Utility Helicopter Repairer ID Sodium (136-145) mmol/L Potassium (3.5-5.1) mmol/L Chloride (98-107) mmol/L Carbon Dioxide (22-29) mmol/L Anion Gap (5-19) BUN (8-23) mg/dL Creatinine (0.5-0.9) mg/dL GFR Calculation (90-130) mL/min Glucose (65-115) mg/dL Calculated Osmolal ity (285-295) mOsm/k g Lactic Acid (0.5-2.2) mmol/L Calcium (8.5-10.5) mg/dL Total Bilirubin (0.15-1.2) mg/dL AST (0-32) U/L ALT (0-33) U/L Alkaline Phosphata se (35-105) IU/L C-Reactive Protein (0.0-4.9) mg/L NT-Pro-B Natriuret Pep (0-125) pg/mL Total Protein (6.6-8.7) g/dL Albumin (3.5-5.2) g/dL Globulin (1.3-4.6) g/dL Procalcitonin (0-0.5) ng/mL Imaging Data^: CXR: Attestation: I personally reviewed and interpreted this imaging study as foll ows: Radiologist's impression: [place] [address] XRay Report Signed Patient: Bruna Nye Unit #: [id number] : 1950 Age/Sex: 70 / F ADM Date: 05/13/21 Loc: ER Room/Bed: Attending Dr: Ordering Provider/Ordering MD: Carmina Otero MD Date of Service: 05/13/21 Procedure(s): XR chest 1V portable [id number] Accession Number(s): [id number] Report Number: [id number] PROCEDURE INFORMATION: Exam: XR Chest Exam date and time: 05/13/2021 7:08 PM Age: 70 years old Clinical indication: Shortness of breath; Additional info: SOB TECHNIQUE: Imaging protocol: XR of the chest. Views: 1 view. COMPARISON: CR XR chest 1V portable [id number] 05/08/2021 3:23 PM FINDINGS: Lungs: Airspace opacities have increased in the lung bases, left greater than right, and right upper lobe. Linear atelectasis in the right mid lung and lung bases. Pleural spaces: Unremarkable. No pleural effusion. No pneumothorax. Heart/Mediastinum: Unremarkable. No cardiomegaly. Bones/joints: Unremarkable. XR/XR chest 1V portable [id number] IMPRESSION: 1. Multilobar pneumonia. Dictated By: Georgi Navarro Signed By: Georgi Navarro Signed Date/Time: 05/13/212126 DD/ 24 EKG Data^: EKG 1: Attestation: I personally reviewed and interpreted this EKG as follows: EKG Interpretation Date: 05/13/21 EKG interpretation time: 19:50 Interpretation: nsr hr [address] or t wave abnormalities qrs 91 qtc 411 Discharge Plan Discharge Patient Disposition: Admitted As Inpatient Clinical Impression: COVID-19 Condition: Stable Coding Level of Care Code ED Concrete Gun Operator for Chg Fwd Exam Comprehensive
[2021-05-13] MEDS: dexamethasone 4 mg/mL INJ 6 MG IVP (19:20)
[2021-05-13 19:34] LABS: Basophils % 0.2 %; Hematocrit 46.8 % (37.0-47.0); Lymphocytes # 0.8 10^3/uL (0.8-4.8); Lymphocytes % 7.2 %; Mean Corpuscular HGB Conc 32.1 g/dL (30.0-36.0); Mean Corpuscular Hemoglobin 29.8 pg (28.0-34.0); Mean Platelet Volume 10.7 fL (7.4-10.4); Monocytes # 0.5 10^3/uL (0.2-0.9); Monocytes % 4.9 %; Neutrophils # 9.59 10^3/uL (1.8-7.7); Neutrophils % 86.6 %; Nucleated Red Blood Cells % 0 %; Platelet Count 259 10^3/cmm (130-400); Red Blood Count 5.03 10^6/uL (4.1-5.3); Red Cell Distribution Width 13.1 % (12.1-15.1); White Blood Count 11.1 10^3/uL (4.0-10.0)
[2021-05-13 20:02] LABS: NT Pro B Type Natriuretic Pept 562 pg/mL (0-125); Procalcitonin 0.11 ng/mL (0-0.5)
[2021-05-13] MEDS: albuterol 8 gm MDI 2 PUFF INHALATION (20:10)
[2021-05-13 20:13] LABS: Alanine Aminotransferase 34 U/L (0-33); Albumin Level 3.3 g/dL (3.5-5.2); Alkaline Phosphatase 51 IU/L (35-105); Anion Gap 20.9 (5-19); Aspartate Amino Transferase 42 U/L (0-32); Blood Urea Nitrogen 27 mg/dL (8-23); C Reactive Protein 113.3 mg/L (0.0-4.9); Calcium 8.8 mg/dL (8.5-10.5); Carbon Dioxide 26 mmol/L (22-29); Chloride 97 mmol/L (98-107); Globulin 3.3 g/dL (1.3-4.6); Glomerular Filtration Rate 70.9 mL/min (90-130); Glucose 63 mg/dL (65-115); Osmolality Calculated 293 mOsm/kg (285-295); Potassium 3.9 mmol/L (3.5-5.1); Sodium 140 mmol/L (136-145); Total Bilirubin 0.4 mg/dL (0.15-1.2); Total Protein 6.6 g/dL (6.6-8.7)
[2021-05-13 20:20] LABS: ABG PCO2 29.4 mmHg (35-45); Arterial Blood Gas Hematocrit 45.8 % (37-47); Base Excess ABG 6.1 mmol/L (-2.0-2.0); Blood Gas Allen Test Pos; Blood Gas Sample Type Arterial; HCO3 ABG 27.3 mmol/L (22-26)
[2021-05-13 20:21] LABS: ABG PH Result 7.58 (7.35-7.45)
[2021-05-13 20:22] LABS: Oxygen Device HFNC
[2021-05-13 20:32] LABS: Lactic Sepsis W/Reflex 1.7 mmol/L (0.5-2.2)
--- NOTE | 2021-05-13 20:40 | PC.NURSE ---
2000 vitals of 02 sat are correct they are not room air, she is on high flow o2 pnc at 15L. her resp rate is 28 not 18 I entered these in error
--- NOTE | 2021-05-13 22:01 | P.HP_ITS ---
Providers/Chief Complaint Admitting Physician: Danica Vela MD Primary Care Provider: Jimmy Ballesteros MD Chief Complaint: COVID POSITIVE/ RESPIRATORY DISTRESS History of Present Illness Bruna Nye is a 70 year old female diagnosed with COVID 19 on 05/01, unvaccinated, h/o SLE on rx with steroids and HCQS. Presenting with worsening dyspnea over the past few days, persisting cough. Dischrged with home 02 on 05/08 from ER, became more dyspneic, ON NRB and then BIpap in the ER. Admitted in view of escalating 02 requirements. Review of Systems General: Reports: 10 or more systems reviewed and unremarkable except in HPI and below Const: Denies: fever(s), chills or body aches Eyes: Denies: change in vision, blurry vision or photophobia ENMT: Denies: throat pain, enlarged tonsils, odynophagia or nasal congestion Card: Denies: chest pain, palpitations, irregular heart rhythm, edema, swelling of feet/ankles, lightheadedness, pre-syncope, dyspnea on exertion or orthopnea Resp: Reports: dyspnea and productive cough; Denies: non-productive cough, wheezing, stridor, pain on inspiration, change in phlegm color, hemoptysis or chest congestion GI: Denies: abdominal pain, nausea, vomiting, hematemesis, coffee ground emesis, dysphagia, heartburn, diarrhea, constipation, GI cramping, change in stool character, hematochezia or melena : Denies: flank pain, difficulty voiding, dysuria, urinary frequency, urinary urgency, urinary hesitancy or hematuria Musc: Denies: neck pain, back pain, extremity pain, joint swelling, joint warmth or deformity Neuro: Denies: headache(s), numbness in extremities, weakness in extremities, sensory changes, difficulty walking, frequent falls, dizziness, vertigo, behavioral changes, Slurred speech present or seizure-like activity Psych: Denies: anxiety, depression, suicidal ideation or homicidal ideation Endo: Denies: polyuria, polydipsia, tired all the time, cold intolerance or hot flashes Clarence/Lymph: Denies: easy bruising or easy bleeding Medications/Allergies Home Medications Medication Instructions Recorded Confirmed Last Taken Type glucosamine sulfate 1,000 mg 1,000 mg PO BEDTIME cap 10/14/19 05/13/2121 History capsule omega-3 fatty acids 1,000 mg 1,000 mg PO BEDTIME cap 10/14/19 05/13/21 05/12/21 History capsule aspirin 81 mg tablet,delayed 81 mg PO BEDTIME 11/01/19 05/13/21 05/12/21 History release biotin 1,000 mcg chewable tablet 1,000 mcg PO BEDTIME 11/01/19 05/13/21 05/12/21 History cetirizine 10 mg tablet 10 mg PO DAILY PRN tab 03/21/20 05/13/21 Unknown History alendronate 70 mg tablet 70 mg PO Q7D tab 06/19/20 05/13/21 05/12/21 History cholecalciferol (vitamin D3) 25 2,000 unit PO DAILY cap 09/18/20 05/13/21 05/13/21 History mcg (1,000 unit) capsule dexamethasone 6 mg PO DAILY #7 tab 05/08/21 05/13/21 05/12/21 Rx hydroxychloroquine [Plaquenil] See Rx Instructions .ROUTE .COMPLEX 05/08/21 05/13/21 05/13/21 History omeprazole 20 mg PO BEDTIME 05/08/21 05/13/21 05/12/21 History prednisone 5 mg PO BEDTIME 05/08/21 05/13/21 05/07/21 History triamterene-hydrochlorothiazid 1 tab PO EVERY OTHER DAY 05/08/21 05/13/21 05/12/21 History prednisone 2.5 mg PO DAILY 05/13/21 05/13/21 Unknown History turmeric 400 mg PO BEDTIME 05/13/21 05/13/21 05/12/21 History Allergies Allergy/AdvReac Type Severity Reaction Status Date / Time naproxen [From Naprosyn] Allergy Mild ALGY-Rash Verified 05/08/21 16:21 celecoxib [From Celebrex] Allergy unknown Verified 05/08/21 16:21 Penicillins Allergy ALGY-Rash Verified 05/08/21 16:21 Sulfa (Sulfonamide Allergy ALGY-Rash Verified 05/08/21 16:21 Antibiotics) PFSH Acute PFSH: Medical History Cutaneous lupus erythematosus High risk medication use HTN (hypertension) Immunization counseling Inflammatory arthritis PMR (polymyalgia rheumatica) Positive MARIA DE JESUS (antinuclear antibody) Positive double stranded DNA antibody test SLE (systemic lupus erythematosus) Undifferentiated connective tissue disease Surgical History History of 2 sections History of hysterectomy Hx of tonsillectomy Family History Father Heart disease Other CAD (coronary artery disease) Diabetes Family history of premature coronary artery disease Hypertension Multiple sclerosis Rheumatoid arthritis Systemic lupus erythematosus (SLE) in adult Denies family history of Chronic kidney disease (CKD) Cancer Stroke Social History Smoking and tobacco status: never smoked Alcohol intake: never History of recent travel: No (10/14/2019) Vitals/I&O/Wt Last Vital Signs Pulse 81 05/13/21 21:15 Resp 24 H 05/13/21 21:15 BP 124/88 05/13/21 21:15 Pulse Ox 92 05/13/21 20:32 Weight last 48 hrs Weight 66.224 kg Physical Exam Narrative: EXAM NARRATIVE: General: Currently on Bipap HEENT: PERRLA, pupils bilaterally equal and reactive, pallors not present Chest: Normal vesicular breath sounds, no added sounds, equal good air entry bilaterally CVS: S1-S2 regular, no murmurs, no tachycardia, no gallops, no rubs Abdomen: Soft, nontender, no organomegaly, bowel sounds present Neuro: No focal deficits, no facial deformity, AO x3, power 5/5 in all limbs Data : 05/13/21 19:20 05/13/21 22:20 Micro: Microbiology 05/13/21 19:50 Blood Culture - Preliminary Blood SPECIMEN COLLECTED 05/13/21 19:50 Blood Culture - Preliminary Blood SPECIMEN COLLECTED Attestation for Other Data: I personally reviewed and interpreted the following: Other data: 05/13/21 05/13/21 19:08 21:31 ABG pH 7.58 H* 7.50 H ABG pCO2 29.4 L 31.0 L ABG pO2 50.0 L 58.0 L ABG HCO3 27.3 H 24.4 ABG Base Excess 6.1 H 2.1 H A&P Assessment and plan (1) ARDS (adult respiratory distress syndrome): Status: Acute (2) COVID-19: Status: Acute (3) SLE (systemic lupus erythematosus): Status: Acute (4) 2019 novel coronavirus vaccination not done: Status: Acute Additional A&P Information ARDS related to COVID 19 pneumonia Remdisivir 200mg iv x 1 followed by 100mg iv daily dexamethasone 6mg IVP daily duoneb q6h, budesonide q12h empiric CTX and azithromycin Flutter valve/spirometer at bedside trend inflammatory markers including CRP, LDH, D dimer, Ferritin CTA PE to evalaute for PE given elevated D dimer. Presumptive anticolagulation with lovenox 1mg/kg q12h until able to obtain CTA Supplemental 02, titrate to keep sat >90% Bipap prn Attestations Medical Necessity Statement*: anticipate >2midnight admission for management of COVID 19 pneumonia Coding Level of Care Code Acute Doctor Of Podiatric Medicine for [facility] F[facility] Diagnoses ARDS (adult respiratory distress syndrome) J80 COVID-19 U07.1 SLE (systemic lupus erythematosus) M32.9 2019 novel coronavirus vaccination not done Z28.9
[2021-05-13 22:41] LABS: D Dimer 3.43 ug/mIFEU (0-0.59)
[2021-05-13 22:44] LABS: Alanine Aminotransferase 29 U/L (0-33); Albumin Level 2.9 g/dL (3.5-5.2); Alkaline Phosphatase 44 IU/L (35-105); Anion Gap 16.9 (5-19); Aspartate Amino Transferase 36 U/L (0-32); Blood Urea Nitrogen 25 mg/dL (8-23); Calcium 8.4 mg/dL (8.5-10.5); Carbon Dioxide 26 mmol/L (22-29); Chloride 96 mmol/L (98-107); Globulin 3.6 g/dL (1.3-4.6); Glomerular Filtration Rate 54.8 mL/min (90-130); Glucose 84 mg/dL (65-115); Osmolality Calculated 284 mOsm/kg (285-295); Potassium 3.9 mmol/L (3.5-5.1); Sodium 135 mmol/L (136-145); Total Bilirubin 0.4 mg/dL (0.15-1.2); Total Protein 6.5 g/dL (6.6-8.7)
[2021-05-13 22:48] LABS: Creatinine Clr Calc Pharmacy 49.0128
[2021-05-13] MEDS: cefTRIAXone 1,000 MG in sodium chloride 0.9% (plus) 50 ML 100 MG IV (23:27)
[2021-05-13] MEDS: azithromycin 500 MG in sodium chloride 0.9% 250 ML 250 MG IV (23:56)
[2021-05-14] VITALS (21 sets, daily range): BP systolic 108–155; BP diastolic 62–84; PULSE 50–83; RESP 19–36; TEMP 36.6–36.9; O2SAT 91–99; BMI 25.0
[2021-05-14] MEDS: remdesivir 200 MG in sodium chloride 0.9% (100 ml) 100 ML 100 MG IV (01:12)
[2021-05-14 01:33] LABS: Base Excess ABG 2.1 mmol/L (-2.0-2.0); Blood Gas Allen Test POS; HCO3 ABG 24.4 mmol/L (22-26); Oxygen Device BIPAP
[2021-05-14 01:34] LABS: Arterial Blood Gas Hematocrit 43.4 % (37-47); BIPAP 14/8; Blood Gas Sample Site LEFT RAD; Blood Gas Sample Type ART
[2021-05-14] MEDS: enoxaparin 80 mg/0.8 mL Syringe 70 MG SUBCUT ×2 (02:59→15:03)
--- NOTE | 2021-05-14 04:17 | PC.NURSE ---
pt daughter called and was given update. ileana.
--- NOTE | 2021-05-14 05:08 | PC.NURSE ---
pt asked for a drink of water at this time
--- NOTE | 2021-05-14 06:18 | CTR_ITS ---
PROCEDURE INFORMATION: Exam: CTA Chest With Contrast Exam date and time: 05/14/2021 6:18 AM Age: 70 years old Clinical indication: Shortness of breath; Additional info: Elevated d dimer, hypoxia, covid TECHNIQUE: Imaging protocol: Computed tomographic angiography of the chest with contrast. 3D rendering (Not supervised by radiologist): MIP reconstructed images were created by the technologist. Radiation optimization: All CT scans at this facility use at least one of these dose optimization techniques: automated exposure control; mA and/or kV adjustment per patient size (includes targeted exams where dose is matched to clinical indication); or iterative reconstruction. Contrast material: VISI 320; Contrast volume: 66 ml; Contrast route: INTRAVENOUS (IV); COMPARISON: CR (CHEST, ) 05/13/2021 8:16 PM RADIATION DOSE METRICS: Total DLP (mGy-cm): 1018.34 FINDINGS: Pulmonary arteries: No pulmonary artery embolism identified. Aorta: No aortic aneurysm. No aortic dissection. Thyroid: The partially imaged bilateral thyroid lobes are unremarkable. Lungs: Peripheral non rounded patchy pulmonary ground-glass opacities with intralobular septal thickening and architectural distortion, predominating in the mid-lower lung zones, with dependent posterior basilar consolidative densities. Right upper lobe calcified pulmonary parenchymal granuloma. Pleural spaces: No pneumothorax. No pleural effusion. Heart: Proximal LAD coronary artery calcifications. Mediastinal space: Right hilar and subcarinal granulomatous isis calcifications are present. Lymph nodes: No enlarged lymph nodes. Liver: The liver demonstrates a few small granulomatous calcifications. Spleen: The spleen demonstrates a few small granulomatous calcifications. Bones/joints: Diffuse osteopenia. Soft tissues: Right breast benign macrocalcification. CT/CT angio chest PE protcl [id number] IMPRESSION: 1. No pulmonary artery embolism identified. 2. Commonly reported imaging features of COVID-19 pneumonia are present (subacute presentation). Other processes such as influenza pneumonia and organizing pneumonia, as can be seen with drug toxicity and connective tissue disease, can cause a similar imaging pattern. 3. Coronary atherosclerosis. Radiation Dose CTDIVOL = (mGy): DLP = 1018.34 (mGy-cm)
[2021-05-14] MEDS: iodixanol 320 mg/mL 100mL Btl IV (07:43)
[2021-05-14 07:57] LABS: Basophils % 0.2 %; Hematocrit 41.5 % (37.0-47.0); Hemoglobin 13.5 g/dL (11.5-15.3); Lymphocytes # 0.3 10^3/uL (0.8-4.8); Lymphocytes % 5.3 %; Mean Corpuscular HGB Conc 32.5 g/dL (30.0-36.0); Mean Corpuscular Hemoglobin 30.5 pg (28.0-34.0); Mean Corpuscular Volume 93.7 fL (81-99); Mean Platelet Volume 10.1 fL (7.4-10.4); Monocytes # 0.4 10^3/uL (0.2-0.9); Monocytes % 6.1 %; Neutrophils # 5.53 10^3/uL (1.8-7.7); Neutrophils % 86.5 %; Nucleated Red Blood Cells % 0 %; Platelet Count 226 10^3/cmm (130-400); Red Blood Count 4.43 10^6/uL (4.1-5.3); Red Cell Distribution Width 13.2 % (12.1-15.1); White Blood Count 6.4 10^3/uL (4.0-10.0)
[2021-05-14 08:11] LABS: D Dimer 1.99 ug/mIFEU (0-0.59)
[2021-05-14 08:34] LABS: C Reactive Protein 117.8 mg/L (0.0-4.9); Ferritin 537 ng/mL (15-150); Lactate Dehydrogenase 336 U/L (135-214)
[2021-05-14] MEDS: budesonide 0.5 mg/2 mL Neb INHALATION ×2 (09:02→22:17)
[2021-05-14] MEDS: ipratropium-albuterol 3 mL Neb INHALATION ×3 (09:02→22:16)
--- NOTE | 2021-05-14 17:58 | P.PN_ITS ---
Subjective Subjective: Interval history: No new clinical events overnight. Which was unchanged. Medications: Reviewed: Yes Vitals/I&O/Wt Last Vital Signs Temp 98.5 F 05/14/21 05:09 Pulse 65 05/14/21 15:13 Resp 26 H 05/14/21 15:13 BP 125/69 05/14/21 15:11 Pulse Ox 93 05/14/21 15:13 05/14/21 05/14/21 05/14/21 06:59 14:59 22:59 Intake Total 400 / 400 Balance 400 / 400 Weight last 48 hrs Weight 66.224 kg Weight 66.224 kg Physical Exam Narrative: EXAM NARRATIVE: General: Currently on BiPAP HEENT: PERRLA, pupils bilaterally equal and reactive, pallors not present Chest: Normal vesicular breath sounds, no added sounds, equal good air entry bilaterally CVS: S1-S2 regular, no murmurs, no tachycardia, no gallops, no rubs Abdomen: Soft, nontender, no organomegaly, bowel sounds present Neuro: No focal deficits, no facial deformity, AO x3, power 5/5 in all limbs Data : 05/14/21 07:48 05/13/21 22:20 Micro: Microbiology 05/13/21 19:50 Blood Culture - Preliminary Blood SPECIMEN COLLECTED 05/13/21 19:50 Blood Culture - Preliminary Blood SPECIMEN COLLECTED A&P Assessment and plan (1) ARDS (adult respiratory distress syndrome): Status: Acute (2) COVID-19: Status: Acute (3) SLE (systemic lupus erythematosus): Status: Acute (4) 2019 novel coronavirus vaccination not done: Status: Acute Additional A&P Information ARDS related to COVID 19 pneumonia Continue Remdesivir And Decadron Duoneb q6h, budesonide q12h Empiric CTX and azithromycin Flutter valve/spirometer at bedside Check CRP, LDH, D dimer, Ferritin in a.m. CTA PE negative - will decrease lovenox to therapeutic doses. Supplemental 02, titrate to keep sat >90% Bipap prn Attestations Medical Necessity Statement*: Will continue hospitalization for management of covid19 pneumonia requiring supplemental 02 Time Spent in Patient Care: Greater than 35 minutes (>than 50% of time spent in counselling and/or direct pt care on unit) . Coding Level of Care Code Acute Janitorial Cleaner for [facility] Fwd Diagnoses ARDS (adult respiratory distress syndrome) J80 COVID-19 U07.1 SLE (systemic lupus erythematosus) M32.9 2019 novel coronavirus vaccination not done Z28.9
[2021-05-14] MEDS: remdesivir 100 MG in sodium chloride 0.9% (100 ml) 100 ML IV (18:00)
--- NOTE | 2021-05-14 18:31 | PC.NURSE ---
Admit Note Patient admitted to 2A from ER via wheel chair. Covering service notified. Patient presents with failed outpatient treatment of oxygen for Covid pneumonia which she tested positive for on 05/01. Patient currently on bipap with FIO2 at 70. Patient's is also on the floor and is not doing well. Put on comfort care. Patient is tearful and may need some depression or anxiety meds. Orders reviewed & will continue to monitor. Patient and/or tour sales representative oriented to environment, equipment, and informed of the following as found in the admission booklet: patient rights & responsibilities, visitor policy, hand and respiratory hygiene practice. Other education includes: using call light if need help. Patient and/or tour sales representative verbalized understanding.
[2021-05-14] MEDS: cefTRIAXone 1,000 MG in sodium chloride 0.9% (plus) 50 ML 100 MG IV (21:04)
[2021-05-14] MEDS: aspirin 81 mg EC Tablet PO (21:04)
[2021-05-14] MEDS: dexamethasone 4 mg/mL INJ 6 MG IVP (21:08)
[2021-05-14] MEDS: azithromycin 500 MG in sodium chloride 0.9% 250 ML 250 MG IV (23:14)
[2021-05-15] VITALS (12 sets, daily range): BP systolic 123–151; BP diastolic 69–84; PULSE 61–97; RESP 18–28; TEMP 36.6–37; O2SAT 90–100
[2021-05-15] MEDS: ipratropium-albuterol 3 mL Neb INHALATION ×3 (03:39→22:30)
[2021-05-15] MEDS: enoxaparin 40 mg/0.4 mL Syringe SUBCUT (08:32)
[2021-05-15] MEDS: budesonide 0.5 mg/2 mL Neb INHALATION ×2 (10:12→22:30)
--- NOTE | 2021-05-15 11:09 | PC.CHAP ---
Pastoral Care Encounter/Spiritual Assessment Type of Contact [] Declined chronometer assembler visit [] Patient/Family/Request visit [] Outpatient visit [] Follow-up visit [] Physician referral [] Code/Alert [x] Routine visit [] Staff referral [] Actively dying [] Patient sleeping [] Family support [] [] Out of room [] Palliative care [] [] Receiving care in room [] Pre-surgical visit [] Trauma [] Long length of stay [] ICU visit [x] Other: 2A Relational/Emotional Strength [] Patient feels connected with others/family/visitors/staff [] Distress [] Loneliness/isolation [] Abandonment Spirituality of Patient [] Person of Dimple [] Attends Jainism of their Dimple [] Believes in Prayer [] Reads Bible or Methodist materials [] There are Spiritual issues to be addressed Manager Medical Affairs Interventions [x] Prayer [] Active listening [] Non-anxious presence [] Spiritual/emotional support [] Crisis/trauma care [] Spiritual counseling [] Bereavement support [] Provided bereavement packet [] Provided Bible/devotional materials [] Provided toy/stuffed animal, coloring book to patient or family member [] Provided Communion [] Anointing/[place] [] Salvation [x] Completed spiritual assessment [] Other: Impact on Illness or Injury [] Angry [] Fearful [] Anxious [] Often cries [] Exhaustion [] Unable to work [] Unable to attend sabianism [] Unable to walk/stand [] Unable to read [] Unable to drive [] Unable to eat/drink [] Unable to sleep [] Unable to be with family [] Patient intubated [] Other: Summary of 209... prayed for and she is on oxygen.. family coming to visit Time spent with patient 10 min
[2021-05-15] MEDS: lanolin oint 7 gm 1 APPLIC TOPICAL (15:12)
--- NOTE | 2021-05-15 15:58 | PM.PN ---
Subjective Subjective: Interval history: No new clinical events overnight. Which was unchanged. Medications: Reviewed: Yes Vitals/I&O/Wt Last Vital Signs Temp 98.1 F 05/15/21 12:00 Pulse 81 05/15/21 12:00 Resp 22 H 05/15/21 12:00 BP 130/84 05/15/21 12:00 Pulse Ox 90 05/15/21 12:00 05/15/21 05/15/21 05/15/21 06:59 14:59 22:59 Intake Total 460 / 850 480 / 480 Output Total 300 / 300 250 / 250 Balance 160 / 550 230 / 230 Weight last 48 hrs Weight 66.224 kg Weight 66.224 kg Physical Exam Narrative: EXAM NARRATIVE: General: Currently on HFNC HEENT: PERRLA, pupils bilaterally equal and reactive, pallors not present Chest: Normal vesicular breath sounds, no added sounds, equal good air entry bilaterally CVS: S1-S2 regular, no murmurs, no tachycardia, no gallops, no rubs Abdomen: Soft, nontender, no organomegaly, bowel sounds present Neuro: No focal deficits, no facial deformity, AO x3, power 5/5 in all limbs Data : 05/14/21 07:48 05/13/21 22:20 Micro: Microbiology 05/13/21 19:50 Blood Culture - Preliminary Blood NEGATIVE TO DATE 05/13/21 19:50 Blood Culture - Preliminary Blood NEGATIVE TO DATE A&P Assessment and plan (1) ARDS (adult respiratory distress syndrome): Status: Acute (2) COVID-19: Status: Acute (3) SLE (systemic lupus erythematosus): Status: Acute (4) 2019 novel coronavirus vaccination not done: Status: Acute Additional A&P Information ARDS related to COVID 19 pneumonia Continue Remdesivir And Decadron Duoneb q6h, budesonide q12h Empiric CTX and azithromycin Flutter valve/spirometer at bedside Check CRP, LDH, D dimer, Ferritin in a.m. CTA PE negative Supplemental 02, titrate to keep sat >90% Bipap prn Slow to improve. Will likely require home o2 Attestations Medical Necessity Statement*: Will continue hospitalization for management of covid 19 pneumonia requiring respiratory support. Time Spent in Patient Care: Greater than 35 minutes (>than 50% of time spent in counselling and/or direct pt care on unit). Coding Level of Care Code Acute Skilled Laborer for [facility] Fwd Diagnoses ARDS (adult respiratory distress syndrome) J80 COVID-19 U07.1 SLE (systemic lupus erythematosus) M32.9 2019 novel coronavirus vaccination not done Z28.9
[2021-05-15] MEDS: remdesivir 100 MG in sodium chloride 0.9% (100 ml) 100 ML IV (17:43)
--- NOTE | 2021-05-15 18:30 | PM.PN ---
Subjective Subjective: Interval history: No new clinical events overnight. Which was unchanged. Medications: Reviewed: Yes Vitals/I&O/Wt Last Vital Signs Temp 97.8 F 05/15/21 16:00 Pulse 64 05/15/21 16:00 Resp 18 05/15/21 16:00 BP 151/78 05/15/21 16:00 Pulse Ox 92 05/15/21 16:00 05/15/21 05/15/21 05/15/21 06:59 14:59 22:59 Intake Total 460 / 850 480 / 480 360 / 840 Output Total 300 / 300 250 / 250 Balance 160 / 550 230 / 230 360 / 590 Weight last 48 hrs Weight 66.224 kg Weight 66.224 kg Physical Exam Narrative: EXAM NARRATIVE: General: Currently on HFNC HEENT: PERRLA, pupils bilaterally equal and reactive, pallors not present Chest: Normal vesicular breath sounds, no added sounds, equal good air entry bilaterally CVS: S1-S2 regular, no murmurs, no tachycardia, no gallops, no rubs Abdomen: Soft, nontender, no organomegaly, bowel sounds present Neuro: No focal deficits, no facial deformity, AO x3, power 5/5 in all limbs Data : 05/14/21 07:48 05/13/21 22:20 Micro: Microbiology 05/13/21 19:50 Blood Culture - Preliminary Blood NEGATIVE TO DATE 05/13/21 19:50 Blood Culture - Preliminary Blood NEGATIVE TO DATE A&P Assessment and plan (1) ARDS (adult respiratory distress syndrome): Status: Acute (2) COVID-19: Status: Acute (3) SLE (systemic lupus erythematosus): Status: Acute (4) 2018 novel coronavirus vaccination not done: Status: Acute Additional A&P Information ARDS related to COVID 19 pneumonia Continue Remdesivir And Decadron Duoneb q6h, budesonide q12h Empiric CTX and azithromycin Flutter valve/spirometer at bedside Check CRP, LDH, D dimer, Ferritin in a.m. CTA PE negative Supplemental 02, titrate to keep sat >90% Bipap prn Slow to improve. Will likely require home o2 No change to management Attestations Medical Necessity Statement*: Will require aditional days in hospital for ongoing covid 19 care Time Spent in Patient Care: Greater than 35 minutes (>than 50% of time spent in counselling and/or direct pt care on unit). Coding Level of Care Code Acute Technical Information Specialist for [facility] Fwd Diagnoses ARDS (adult respiratory distress syndrome) J80 COVID-19 U07.1 SLE (systemic lupus erythematosus) M32.9 2019 novel coronavirus vaccination not done Z28.9
[2021-05-15] MEDS: aspirin 81 mg EC Tablet PO (22:43)
[2021-05-16] VITALS (12 sets, daily range): BP systolic 102–127; BP diastolic 60–95; PULSE 66–100; RESP 16–36; TEMP 36.6–38.4; O2SAT 92–97
--- NOTE | 2021-05-16 01:37 | PC.RESP ---
RT Shift Note Frequent safety and respiratory rounds continue. Orders completed as indicated. Patient monitored pre and post treatments throughout shift. Patient [Did.] tolerate treatments appropriately. Condition [Improved.]. Patient and/or field support representative educated on respiratory treatment and medications. Patient and/or field support representative [ResponseToTeaching]. Will continue to monitor patient progress.
--- NOTE | 2021-05-16 02:44 | PC.NURSE ---
SHIFT NOTE: AT APPROXIMATELY 2200 05/15/2021 THE PATIENT'S . THE PATIENT WAS INFORMED OF THE UPDATE AND HANDLED IT VERY WELL. THIS NURSE STAYED AT THE PATIENT'S BEDSIDE TO PROVIDE SUPPORT IF NEEDED. THE PATIENT STATED I'M A TOUGH OLD BIRD AND A STUBBORN CAJUN! I HAVE MY KIDS AND GRANDKIDS TO LIVE FOR. I WILL HAVE MY MOMENT LATER, RIGHT NOW I NEED TO FOCUS ON GETTING BETTER. THROUGHOUT THE NIGHT I HAVE GONE IN AND MADE SURE SHE IS DOING WELL, TO WHICH SHE STATES SHE IS DOING FINE.
[2021-05-16] MEDS: acetaminophen 325 mg Tablet 650 MG PO ×2 (04:34→16:57)
[2021-05-16] MEDS: budesonide 0.5 mg/2 mL Neb INHALATION ×2 (08:32→21:30)
[2021-05-16] MEDS: ipratropium-albuterol 3 mL Neb INHALATION ×3 (08:32→21:35)
[2021-05-16] MEDS: enoxaparin 40 mg/0.4 mL Syringe SUBCUT (08:33)
--- NOTE | 2021-05-16 14:24 | P.PN_ITS ---
Subjective Subjective: Interval history: patient was noted to have respiratory distress same. Was on high-flow however transition to heated high-flow. Addition was noted have a temperature of a 101. Medications: Reviewed: Yes Vitals/I&O/Wt Last Vital Signs Temp 98.2 F 05/16/21 11:44 Pulse 74 05/16/21 12:45 Resp 20 H 05/16/21 12:45 BP 111/95 05/16/21 11:44 Pulse Ox 92 05/16/21 12:45 05/15/21 05/16/21 05/16/21 22:59 06:59 14:59 Intake Total 460 / 940 480 / 1420 360 / 360 Output Total 250 / 250 Balance 460 / 690 480 / 1170 110 / 110 Weight last 48 hrs Weight 66.224 kg Physical Exam Narrative: EXAM NARRATIVE: General: Currently on HFNC HEENT: PERRLA, pupils bilaterally equal and reactive, pallors not present Chest: Normal vesicular breath sounds, no added sounds, equal good air entry bi laterally CVS: S1-S2 regular, no murmurs, no tachycardia, no gallops, no rubs Abdomen: Soft, nontender, no organomegaly, bowel sounds present Neuro: No focal deficits, no facial deformity, AO x3, power 5/5 in all limbs Data : 05/14/21 07:48 05/13/21 22:20 A&P Assessment and plan (1) ARDS (adult respiratory distress syndrome): Status: Acute (2) COVID-19: Status: Acute (3) SLE (systemic lupus erythematosus): Status: Acute (4) 2019 novel coronavirus vaccination not done: Status: Acute Additional A&P Information ARDS related to COVID 19 pneumonia Continue Remdesivir And Decadron Duoneb q6h, budesonide q12h Empiric CTX and azithromycin Flutter valve/spirometer at bedside Check CRP, LDH, D dimer, Ferritin in a.m. CTA PE negative Supplemental 02, titrate to keep sat >90% Bipap prn Slow to improve. Will likely require home o2 No change to management Attestations Medical Necessity Statement*: continue hospitalization for managment of covid 19 pneumnia Time Spent in Patient Care: Greater than 35 minutes (>than 50% of time spent in counselling and/or direct pt care on unit) . Coding Level of Care Code Acute Land Measurer for [facility] Fwd Diagnoses ARDS (adult respiratory distress syndrome) J80 COVID-19 U07.1 SLE (systemic lupus erythematosus) M32.9 2019 novel coronavirus vaccination not done Z28.9
[2021-05-16] MEDS: remdesivir 100 MG in sodium chloride 0.9% (100 ml) 100 ML IV (16:55)
[2021-05-16] MEDS: ondansetron 2 mg/ML SDV 2 mL 4 MG IVP (18:42)
[2021-05-16] MEDS: cefTRIAXone 1,000 MG in sodium chloride 0.9% (plus) 50 ML 100 MG IV (21:20)
[2021-05-16] MEDS: aspirin 81 mg EC Tablet PO (21:20)
[2021-05-16] MEDS: dexamethasone 4 mg/mL INJ 6 MG IVP (22:35)
[2021-05-17] VITALS (17 sets, daily range): BP systolic 106–144; BP diastolic 68–85; PULSE 60–126; RESP 18–26; TEMP 35.9–36.9; O2SAT 92–98
--- NOTE | 2021-05-17 00:50 | PC.RESP ---
RT Shift Note Frequent safety and respiratory rounds continue. Orders completed as indicated. Patient monitored pre and post treatments throughout shift. Patient [Did.] tolerate treatments appropriately. Condition .DidNotChange]. Patient and/or commercial representative educated on respiratory treatment and medications. Patient and/or commercial representative [ResponseToTeaching]. Will continue to monitor patient progress.
[2021-05-17 06:32] LABS: Basophils % 0.1 %; Hematocrit 44.3 % (37.0-47.0); Hemoglobin 14.1 g/dL (11.5-15.3); Lymphocytes # 0.4 10^3/uL (0.8-4.8); Lymphocytes % 5.7 %; Mean Corpuscular HGB Conc 31.8 g/dL (30.0-36.0); Mean Corpuscular Volume 94.3 fL (81-99); Mean Platelet Volume 10.5 fL (7.4-10.4); Monocytes # 0.2 10^3/uL (0.2-0.9); Monocytes % 2.8 %; Neutrophils # 6.34 10^3/uL (1.8-7.7); Neutrophils % 90.1 %; Nucleated Red Blood Cells % 0 %; Platelet Count 221 10^3/cmm (130-400); Red Cell Distribution Width 12.8 % (12.1-15.1)
[2021-05-17 06:47] LABS: D Dimer 1.47 ug/mIFEU (0-0.59)
[2021-05-17 07:10] LABS: Alanine Aminotransferase 34 U/L (0-33); Albumin Level 2.6 g/dL (3.5-5.2); Alkaline Phosphatase 41 IU/L (35-105); Anion Gap 14.2 (5-19); Aspartate Amino Transferase 34 U/L (0-32); Blood Urea Nitrogen 24 mg/dL (8-23); C Reactive Protein 219.4 mg/L (0.0-4.9); Calcium 7.8 mg/dL (8.5-10.5); Carbon Dioxide 23 mmol/L (22-29); Chloride 105 mmol/L (98-107); Globulin 3.7 g/dL (1.3-4.6); Glomerular Filtration Rate 82.7 mL/min (90-130); Glucose 127 mg/dL (65-115); Magnesium 1.8 mg/dL (1.7-2.3); Osmolality Calculated 292 mOsm/kg (285-295); Potassium 4.2 mmol/L (3.5-5.1); Sodium 138 mmol/L (136-145); Total Bilirubin 0.3 mg/dL (0.15-1.2); Total Protein 6.3 g/dL (6.6-8.7)
[2021-05-17 07:11] LABS: Ferritin 815 ng/mL (15-150)
[2021-05-17 07:18] LABS: Procalcitonin 0.31 ng/mL (0-0.5)
--- NOTE | 2021-05-17 07:56 | PC.NUTR ---
Nutrition note: Respiratory therapist reported to this RD that pt doesn't want Ensure supplement anymore. Have stopped at this time.
[2021-05-17] MEDS: ipratropium-albuterol 3 mL Neb INHALATION ×3 (08:42→20:23)
[2021-05-17] MEDS: budesonide 0.5 mg/2 mL Neb INHALATION ×2 (08:42→20:23)
[2021-05-17] MEDS: enoxaparin 40 mg/0.4 mL Syringe SUBCUT (09:01)
--- NOTE | 2021-05-17 11:12 | P.PN_ITS ---
Subjective Subjective: Interval history: Proneing Medications: Reviewed: Yes Vitals/I&O/Wt Last Vital Signs Temp 98.1 F 05/17/21 20:00 Pulse 74 05/17/21 20:24 Resp 22 H 05/17/21 20:24 BP 110/85 05/17/21 20:00 Pulse Ox 94 05/17/21 20:24 05/17/21 05/17/21 05/18/21 14:59 22:59 06:59 Intake Total 245 / 245 270 / 515 Balance 245 / 245 270 / 515 Physical Exam Narrative: EXAM NARRATIVE: General: Currently on HFNC HEENT: PERRLA, pupils bilaterally equal and reactive, pallors not present Chest: Normal vesicular breath sounds, no added sounds, equal good air entry bilaterally CVS: S1-S2 regular, no murmurs, no tachycardia, no gallops, no rubs Abdomen: Soft, nontender, no organomegaly, bowel sounds present Neuro: No focal deficits, no facial deformity, AO x3, power 5/5 in all limbs Data : 05/17/21 05:59 05/17/21 05:59 A&P Assessment and plan (1) ARDS (adult respiratory distress syndrome): Status: Acute (2) COVID-19: Status: Acute (3) SLE (systemic lupus erythematosus): Status: Acute (4) 2019 novel coronavirus vaccination not done: Status: Acute Additional A&P Information ARDS related to COVID 19 pneumonia Continue Remdesivir And Decadron Duoneb q6h, budesonide q12h Empiric CTX and azithromycin Flutter valve/spirometer at bedside Check CRP, LDH, D dimer, Ferritin in a.m. CTA PE negative Supplemental 02, titrate to keep sat >90% Bipap prn Slow to improve. Will likely require home o2 No change to management Attestations Medical Necessity Statement*: WIll need hosptitalization for management of covid19 pneumonia Time Spent in Patient Care: Greater than 35 minutes (>than 50% of time spent in counselling and/or direct pt care on unit) . Coding Level of Care Code Acute Business Administration Teacher for [employer] Fwd Diagnoses ARDS (adult respiratory distress syndrome) J80 COVID-19 U07.1 SLE (systemic lupus erythematosus) M32.9 2019 novel coronavirus vaccination not done Z28.9
[2021-05-17] MEDS: remdesivir 100 MG in sodium chloride 0.9% (100 ml) 100 ML IV (17:21)
--- NOTE | 2021-05-17 17:32 | PC.SOCIAL ---
IMM update IMM not updated patient not expected to discharge in the next 24-48 hours.
[2021-05-17] MEDS: cefTRIAXone 1,000 MG in sodium chloride 0.9% (plus) 50 ML 100 MG IV (21:54)
[2021-05-17] MEDS: aspirin 81 mg EC Tablet PO (21:54)
[2021-05-17] MEDS: dexamethasone 4 mg/mL INJ 6 MG IVP (22:57)
[2021-05-18] VITALS (16 sets, daily range): BP systolic 105–143; BP diastolic 67–88; PULSE 58–86; RESP 17–26; TEMP 36.3–36.9; O2SAT 89–99
[2021-05-18] MEDS: budesonide 0.5 mg/2 mL Neb INHALATION ×2 (08:19→21:12)
[2021-05-18] MEDS: ipratropium-albuterol 3 mL Neb INHALATION ×3 (08:19→21:11)
[2021-05-18] MEDS: enoxaparin 40 mg/0.4 mL Syringe SUBCUT (08:58)
--- NOTE | 2021-05-18 14:41 | PM.PN ---
Subjective Subjective: Interval history: PatientWas continuing to improve. No new clinical events overnight. Requesting her Plaquenil that she takes chronically. Medications: Reviewed: Yes Vitals/I&O/Wt Last Vital Signs Temp 98.1 F 05/18/21 08:00 Pulse 70 05/18/21 13:30 Resp 18 05/18/21 13:30 BP 107/75 05/18/21 08:00 Pulse Ox 95 05/18/21 13:30 05/17/21 05/18/21 05/18/21 22:59 06:59 14:59 Intake Total 270 / 515 Output Total 250 / 250 Balance 270 / 515 -250 / 265 Physical Exam Narrative: EXAM NARRATIVE: General: Currently on HFNC HEENT: PERRLA, pupils bilaterally equal and reactive, pallors not present Chest: Normal vesicular breath sounds, no added sounds, equal good air entry bilaterally CVS: S1-S2 regular, no murmurs, no tachycardia, no gallops, no rubs Abdomen: Soft, nontender, no organomegaly, bowel sounds present Neuro: No focal deficits, no facial deformity, AO x3, power 5/5 in all limbs Data : 05/17/21 05:59 05/17/21 05:59 A&P Assessment and plan (1) ARDS (adult respiratory distress syndrome): Status: Acute (2) COVID-19: Status: Acute (3) SLE (systemic lupus erythematosus): Resume patients Plaquenil at home dose Status: Acute (4) 2019 novel coronavirus vaccination not done: Status: Acute Additional A&P Information ARDS related to COVID 19 pneumonia Continue Remdesivir And Decadron Duoneb q6h, budesonide q12h Empiric CTX and azithromycin Flutter valve/spirometer at bedside Check CRP, LDH, D dimer, Ferritin in a.m. CTA PE negative Supplemental 02, titrate to keep sat >90% Bipap prn Slow to improve.Down to 45L Will likely require home o2 No change to management Attestations Medical Necessity Statement*: Require further hospitalizationFor management of COVID-19 related respiratory failure Time Spent in Patient Care: Greater than 35 minutes (>than 50% of time spent in counselling and/or direct pt care on unit). Coding Level of Care Code Acute Records Management Coordinator for Steffanie Lowe Diagnoses ARDS (adult respiratory distress syndrome) J80 COVID-19 U07.1 SLE (systemic lupus erythematosus) M32.9 2019 novel coronavirus vaccination not done Z28.9
[2021-05-18] MEDS: remdesivir 100 MG in sodium chloride 0.9% (100 ml) 100 ML IV (17:22)
[2021-05-18] MEDS: cefTRIAXone 1,000 MG in sodium chloride 0.9% (plus) 50 ML 100 MG IV (21:58)
[2021-05-18] MEDS: aspirin 81 mg EC Tablet PO (21:58)
[2021-05-18] MEDS: dexamethasone 4 mg/mL INJ 6 MG IVP (22:06)
[2021-05-19] VITALS (14 sets, daily range): BP systolic 110–147; BP diastolic 66–92; PULSE 60–82; RESP 17–23; TEMP 36.6–37; O2SAT 91–96
[2021-05-19] MEDS: hydroxychloroquine 200 mg Tablet PO (08:28)
[2021-05-19] MEDS: enoxaparin 40 mg/0.4 mL Syringe SUBCUT (08:28)
[2021-05-19] MEDS: ipratropium-albuterol 3 mL Neb INHALATION ×4 (10:44→20:14)
[2021-05-19] MEDS: budesonide 0.5 mg/2 mL Neb INHALATION ×2 (10:44→20:14)
--- NOTE | 2021-05-19 10:45 | ECG_ITS ---
[facility] Test Date: 2021-05-19 Pat Name: Bruna Nye Department: Room: 212 Gender: Female Agronomy Advisor: : [id number] Requested By: Dawit Mcdaniel Order Number: [id number] Sylvester MD: Ciera Mccormick M.D. Measurements Intervals [place] Rate: 66 P: 4 NV: 118 QRS: 38 QRSD: 90 T: 26 QT: 417 QTc: 437 Interpretive Statements SINUS RHYTHM WITH SHORT NV INTERVAL POSSIBLE RIGHT VENTRICULAR CONDUCTION DELAY [RSR (QR) IN V1/V2] Compared to ECG 05/13/2021 19:50:46 Short NV interval now present Electronically Signed On 05-19-2021 16:30:33 CDT by Ciera Mccormick M.D. [email or web address] memorial [id number] f
--- NOTE | 2021-05-19 15:21 | PM.PN ---
Subjective Subjective: Interval history: Continues to improve. Medications: Reviewed: Yes Vitals/I&O/Wt Last Vital Signs Temp 98.2 F 05/19/21 11:45 Pulse 82 05/19/21 15:14 Resp 20 H 05/19/21 15:13 BP 135/66 05/19/21 11:45 Pulse Ox 94 05/19/21 15:13 05/19/21 05/19/21 05/19/21 06:59 14:59 22:59 Intake Total 50 / 150 Output Total 400 / 600 Balance -350 / -450 Physical Exam Narrative: EXAM NARRATIVE: General: Currently on HFNC HEENT: PERRLA, pupils bilaterally equal and reactive, pallors not present Chest: Normal vesicular breath sounds, no added sounds, equal good air entry bilaterally CVS: S1-S2 regular, no murmurs, no tachycardia, no gallops, no rubs Abdomen: Soft, nontender, no organomegaly, bowel sounds present Neuro: No focal deficits, no facial deformity, AO x3, power 5/5 in all limbs Data : 05/17/21 05:59 05/17/21 05:59 Micro: Microbiology 05/13/21 19:50 Blood Culture - Final Blood NO GROWTH AFTER 5 DAYS 05/13/21 19:50 Blood Culture - Final Blood NO GROWTH AFTER 5 DAYS A&P Assessment and plan (1) ARDS (adult respiratory distress syndrome): Status: Acute (2) COVID-19: Status: Acute (3) SLE (systemic lupus erythematosus): Resume patients Plaquenil at home dose Status: Acute (4) 2019 novel coronavirus vaccination not done: Status: Acute Additional A&P Information ARDS related to COVID 19 pneumonia Continue Remdesivir And Decadron Duoneb q6h, budesonide q12h Empiric CTX D/C azithromycin Flutter valve/spirometer at bedside Check CRP, LDH, D dimer, Ferritin in a.m. CTA PE negative Supplemental 02, titrate to keep sat >90% Bipap prn Slow to improve. Down to 45L Will likely require home o2 No change to management Attestations Medical Necessity Statement*: Will continue current hospitalization for covid 19 pneumonia respiratory failrue Time Spent in Patient Care: Greater than 35 minutes (>than 50% of time spent in counselling and/or direct pt care on unit). Coding Level of Care Code Acute Per Diem Physical Therapist for Chg Fwd Diagnoses ARDS (adult respiratory distress syndrome) J80 COVID-19 U07.1 SLE (systemic lupus erythematosus) M32.9 2019 novel coronavirus vaccination not done Z28.9
--- NOTE | 2021-05-19 20:18 | PC.RESP ---
Shift Note Frequent safety and comfort rounds continue. Orders and/or nursing care completed as indicated. Patient monitored for response to intervention and treatment(s). Education provided includes[oxygen safety]. Patient and/or service liaison representative [verbalized understanding]. Will continue to monitor.
--- NOTE | 2021-05-19 20:21 | PC.RESP ---
RT Shift Note Frequent safety and respiratory rounds continue. Orders completed as indicated. Patient monitored pre and post treatments throughout shift. Patient [Did.] tolerate treatments appropriately. Condition [IDidNotChange]. Patient and/or digital sales representative educated on respiratory treatment and medications. Patient and/or digital sales representative [verbalized understanding]. Will continue to monitor patient progress.
[2021-05-19] MEDS: aspirin 81 mg EC Tablet PO (20:50)
[2021-05-19] MEDS: dexamethasone 4 mg/mL INJ 6 MG IVP (20:50)
[2021-05-19] MEDS: cefTRIAXone 1,000 MG in sodium chloride 0.9% (plus) 50 ML 100 MG IV (20:51)
[2021-05-20] VITALS (12 sets, daily range): BP systolic 111–143; BP diastolic 63–79; PULSE 56–95; RESP 18–24; TEMP 36.4–36.7; O2SAT 90–97
--- NOTE | 2021-05-20 07:00 | XRR_ITS ---
PROCEDURE INFORMATION: Exam: XR Chest Exam date and time: 05/20/2021 7:00 AM Age: 70 years old Clinical indication: Condition or disease; Lung condition and disease; Respiratory failure; Status not specified TECHNIQUE: Imaging protocol: XR of the chest. Views: 1 view. Total images: 1 COMPARISON: CR (CHEST, ) 05/13/2021 8:16 PM FINDINGS: Lungs: Bilateral pulmonary opacities are again noted and have shown interval worsening from the prior exam. Pleural spaces: Unremarkable. No pleural effusion. No pneumothorax. Heart/Mediastinum: Heart size is stable when compared to the prior exam. Bones/joints: Osseous structures are unchanged from the prior exam. XR/XR chest 1V portable [id number] IMPRESSION: Bilateral pulmonary opacities are again noted and have shown interval worsening from the prior exam.
[2021-05-20 07:11] LABS: Basophils % 0.2 %; Hematocrit 40.6 % (37.0-47.0); Hemoglobin 12.5 g/dL (11.5-15.3); Lymphocytes # 0.4 10^3/uL (0.8-4.8); Lymphocytes % 4.1 %; Mean Corpuscular HGB Conc 30.8 g/dL (30.0-36.0); Mean Corpuscular Hemoglobin 29.8 pg (28.0-34.0); Mean Corpuscular Volume 96.7 fl (81-99); Mean Platelet Volume 11.7 fL (7.4-10.4); Monocytes # 0.5 10^3/uL (0.2-0.9); Monocytes % 5.5 %; Neutrophils # 8.09 10^3/uL (1.8-7.7); Neutrophils % 88.6 %; Nucleated Red Blood Cells % 0 %; Platelet Count 183 10^3/cmm (130-400); Red Cell Distribution Width 13.3 % (12.1-15.1); White Blood Count 9.1 10^3/uL (4.0-10.0)
[2021-05-20 07:34] LABS: D Dimer 2.06 ug/mIFEU (0-0.59)
[2021-05-20 07:37] LABS: Alanine Aminotransferase 31 U/L (0-33); Albumin Level 2.5 g/dL (3.5-5.2); Alkaline Phosphatase 38 IU/L (35-105); Anion Gap 14.6 (5-19); Aspartate Amino Transferase 17 U/L (0-32); Blood Urea Nitrogen 34 mg/dL (8-23); C Reactive Protein 34.2 mg/L (0.0-4.9); Calcium 8.2 mg/dL (8.5-10.5); Carbon Dioxide 22 mmol/L (22-29); Chloride 108 mmol/L (98-107); Globulin 2.9 g/dL (1.3-4.6); Glomerular Filtration Rate 98.8 mL/min (90-130); Glucose 117 mg/dL (65-115); Osmolality Calculated 299 mOsm/kg (285-295); Potassium 4.6 mmol/L (3.5-5.1); Sodium 140 mmol/L (136-145); Total Bilirubin 0.2 mg/dL (0.15-1.2); Total Protein 5.4 g/dL (6.6-8.7)
[2021-05-20 07:55] LABS: Ferritin 672 ng/mL (15-150)
[2021-05-20] MEDS: ipratropium-albuterol 3 mL Neb INHALATION ×3 (08:05→21:00)
[2021-05-20] MEDS: budesonide 0.5 mg/2 mL Neb INHALATION ×2 (08:05→21:00)
[2021-05-20] MEDS: enoxaparin 40 mg/0.4 mL Syringe SUBCUT (08:38)
--- NOTE | 2021-05-20 09:07 | PC.CHAP ---
Pastoral Care Encounter/Spiritual Assessment Type of Contact [] Declined intensive care anaesthetist visit [] Patient/Family/Request visit [] Outpatient visit [] Follow-up visit [] Physician referral [] Code/Alert [x] Routine visit [] Staff referral [] Actively dying [] Patient sleeping [] Family support [] [] Out of room [] Palliative care [] [] Receiving care in room [] Pre-surgical visit [] Trauma [] Long length of stay [] ICU visit [x] Other: 2a Relational/Emotional Strength [] Patient feels connected with others/family/visitors/staff [] Distress [] Loneliness/isolation [] Abandonment Spirituality of Patient [x] Person of Dimple [] Attends Taoism of their Dimple [] Believes in Prayer [] Reads Bible or Evangelical materials [] There are Spiritual issues to be addressed Cardiac Cath Rn Interventions [x] Prayer [x] Active listening [x] Non-anxious presence [x] Spiritual/emotional support [] Crisis/trauma care [] Spiritual counseling [] Bereavement support [] Provided bereavement packet [] Provided Bible/devotional materials [] Provided toy/stuffed animal, coloring book to patient or family member [] Provided Communion [] Anointing/[place] [] Salvation [x] Completed spiritual assessment [] Other: Impact on Illness or Injury [] Angry [] Fearful [] Anxious [] Often cries [] Exhaustion [] Unable to work [] Unable to attend protestant [] Unable to walk/stand [] Unable to read [] Unable to drive [] Unable to eat/drink [] Unable to sleep [] Unable to be with family [] Patient intubated [] Other: Summary patients breathing improving .. setting up, reading.... Time spent with patient 10 min
[2021-05-20] MEDS: hydroxychloroquine 200 mg Tablet 400 MG PO (09:39)
--- NOTE | 2021-05-20 17:52 | PM.PN ---
Subjective Subjective: Interval history: Continues to improve. Medications: Reviewed: Yes Vitals/I&O/Wt Last Vital Signs Temp 97.6 F 05/20/21 16:00 Pulse 95 05/20/21 16:00 Resp 24 H 05/20/21 16:00 BP 132/73 05/20/21 16:00 Pulse Ox 92 05/20/21 16:00 05/20/21 05/20/21 05/20/21 06:59 14:59 22:59 Intake Total 600 / 600 Output Total 300 / 300 200 / 500 Balance 300 / 300 -200 / 100 Physical Exam Narrative: EXAM NARRATIVE: General: Currently on HFNC HEENT: PERRLA, pupils bilaterally equal and reactive, pallors not present Chest: Normal vesicular breath sounds, no added sounds, equal good air entry bilaterally CVS: S1-S2 regular, no murmurs, no tachycardia, no gallops, no rubs Abdomen: Soft, nontender, no organomegaly, bowel sounds present Neuro: No focal deficits, no facial deformity, AO x3, power 5/5 in all limbs Data : 05/20/21 06:29 05/20/21 06:29 A&P Assessment and plan (1) ARDS (adult respiratory distress syndrome): Status: Acute (2) COVID-19: Status: Acute (3) SLE (systemic lupus erythematosus): Resume patients Plaquenil at home dose Status: Acute (4) 2019 novel coronavirus vaccination not done: Status: Acute Additional A&P Information ARDS related to COVID 19 pneumonia Continue Remdesivir And Decadron Duoneb q6h, budesonide q12h Empiric CTX D/C azithromycin Flutter valve/spirometer at bedside Check CRP, LDH, D dimer, Ferritin in a.m. CTA PE negative Supplemental 02, titrate to keep sat >90% Bipap prn oxygen requirements decreased to 6 L continue current management Anticipate discharge home once Marco 5 L on oxygen pendulum Attestations Medical Necessity Statement*: continue hospitalization for management of COVID-19 pneumonia Time Spent in Patient Care: Greater than 35 minutes (>than 50% of time spent in counselling and/or direct pt care on unit). Coding Level of Care Code Acute Drying Machine Back Tender for [facility] Fwd Diagnoses ARDS (adult respiratory distress syndrome) J80 COVID-19 U07.1 SLE (systemic lupus erythematosus) M32.9 2019 novel coronavirus vaccination not done Z28.9
[2021-05-20] MEDS: cefTRIAXone 1,000 MG in sodium chloride 0.9% (plus) 50 ML 100 MG IV (20:57)
[2021-05-20] MEDS: aspirin 81 mg EC Tablet PO (20:57)
[2021-05-20] MEDS: dexamethasone 4 mg/mL INJ 6 MG IVP (20:57)
[2021-05-21] VITALS (14 sets, daily range): BP systolic 117–131; BP diastolic 72–80; PULSE 54–89; RESP 16–29; TEMP 36.3–36.7; O2SAT 92–96
--- NOTE | 2021-05-21 02:47 | PC.RESP ---
RT Shift Note Frequent safety and respiratory rounds continue. Orders completed as indicated. Patient monitored pre and post treatments throughout shift. Patient [Did tolerate treatments appropriately. Condition .DidNotChange]. Patient and/or product sales representative educated on respiratory treatment and medications. Patient and/or product sales representative [ResponseToTeaching]. Will continue to monitor patient progress.
--- NOTE | 2021-05-21 08:02 | P.PN_ITS ---
Subjective Subjective: Interval history: Continues to improve. oxygen weaned down to 4 L. Medications: Reviewed: Yes Vitals/I&O/Wt Last Vital Signs Temp 97.7 F 05/22/21 04:00 Pulse 53 L 05/22/21 06:00 Resp 20 H 05/22/21 04:00 BP 126/72 05/22/21 04:00 Pulse Ox 93 05/22/21 04:00 05/21/21 05/22/21 05/22/21 22:59 06:59 14:59 Intake Total 290 / 410 Output Total 3000 / 3250 Balance 290 / 160 -3000 / -2840 Physical Exam Narrative: EXAM NARRATIVE: General: Currently oxygen 4 L HEENT: PERRLA, pupils bilaterally equal and reactive, pallors not present Chest: Normal vesicular breath sounds, no added sounds, equal good air entry bilaterally CVS: S1-S2 regular, no murmurs, no tachycardia, no gallops, no rubs Abdomen: Soft, nontender, no organomegaly, bowel sounds present Neuro: No focal deficits, no facial deformity, AO x3, power 5/5 in all limbs Data : 05/20/21 06:29 05/20/21 06:29 A&P Assessment and plan (1) ARDS (adult respiratory distress syndrome): Status: Acute (2) COVID-19: Status: Inactive (3) SLE (systemic lupus erythematosus): Resume patients Plaquenil at home dose Status: Acute (4) 2019 novel coronavirus vaccination not done: Status: Acute Additional A&P Information ARDS related to COVID 19 pneumonia Continue Remdesivir And Decadron Duoneb q6h, budesonide q12h Empiric CTX -will discontinue D/C azithromycin Flutter valve/spirometer at bedside Check CRP, LDH, D dimer, Ferritin in a.m. CTA PE negative Supplemental 02, titrate to keep sat >90% Bipap prn oxygen requirements decreased to 4 L continue current management home O2 evaluation in a.m. Attestations Medical Necessity Statement*: continue hospitalization for management of COVID-19 Coding Level of Care Code Acute Production Technologist for Ch[facility] Fwd Diagnoses ARDS (adult respiratory distress syndrome) J80 COVID-19 U07.1 SLE (systemic lupus erythematosus) M32.9 2019 novel coronavirus vaccination not done Z28.9
[2021-05-21] MEDS: budesonide 0.5 mg/2 mL Neb INHALATION ×2 (08:20→21:20)
[2021-05-21] MEDS: ipratropium-albuterol 3 mL Neb INHALATION ×4 (08:20→21:10)
[2021-05-21] MEDS: hydroxychloroquine 200 mg Tablet PO (08:59)
[2021-05-21] MEDS: enoxaparin 40 mg/0.4 mL Syringe SUBCUT (08:59)
--- NOTE | 2021-05-21 09:29 | PC.CHAP ---
Pastoral Care Encounter/Spiritual Assessment Type of Contact [] Declined mathematical physicist visit [] Patient/Family/Request visit [] Outpatient visit [] Follow-up visit [] Physician referral [] Code/Alert [x] Routine visit [] Staff referral [] Actively dying [] Patient sleeping [] Family support [] [] Out of room [] Palliative care [] [] Receiving care in room [] Pre-surgical visit [] Trauma [] Long length of stay [] ICU visit [x] Other: 2a Relational/Emotional Strength [] Patient feels connected with others/family/visitors/staff [] Distress [] Loneliness/isolation [] Abandonment Spirituality of Patient [] Person of Dimple [] Attends Episcopal of their Dimple [] Believes in Prayer [] Reads Bible or Scientologist materials [] There are Spiritual issues to be addressed Railway Track Worker Interventions [x] Prayer [] Active listening [] Non-anxious presence [] Spiritual/emotional support [] Crisis/trauma care [] Spiritual counseling [] Bereavement support [] Provided bereavement packet [] Provided Bible/devotional materials [] Provided toy/stuffed animal, coloring book to patient or family member [] Provided Communion [] Anointing/[place] [] Salvation [x] Completed spiritual assessment [] Other: Impact on Illness or Injury [] Angry [] Fearful [] Anxious [] Often cries [] Exhaustion [] Unable to work [] Unable to attend holiness [] Unable to walk/stand [] Unable to read [] Unable to drive [] Unable to eat/drink [] Unable to sleep [] Unable to be with family [] Patient intubated [] Other: Summary Time spent with patient
--- NOTE | 2021-05-21 14:30 | PC.SOCIAL ---
IMM Update pg 2 of IMM updated/reviewed w/ patient.
--- NOTE | 2021-05-21 17:15 | PC.NURSE ---
Spoke to Emi Morris patient's daughter. Patient's daughter wants to be called when the physician is in the room rounding tomorrow.
[2021-05-21] MEDS: cefTRIAXone 1,000 MG in sodium chloride 0.9% (plus) 50 ML 100 MG IV (20:55)
[2021-05-21] MEDS: dexamethasone 4 mg/mL INJ 6 MG IVP (20:56)
[2021-05-21] MEDS: aspirin 81 mg EC Tablet PO (20:56)
[2021-05-22] VITALS (7 sets, daily range): BP systolic 126–139; BP diastolic 72–86; PULSE 53–77; RESP 18–24; TEMP 36.5–37.1; O2SAT 87–93
[2021-05-22] MEDS: enoxaparin 40 mg/0.4 mL Syringe SUBCUT (08:21)
[2021-05-22] MEDS: hydroxychloroquine 200 mg Tablet 400 MG PO (08:21)
--- NOTE | 2021-05-22 13:18 | PM.DCS ---
Discharge Providers Date of Admission: 05/14/21 02:56 Date of Discharge: May 22, 2021 Attending Provider at Admission: Danica Vela MD Attending Provider at Discharge: Dawit Mcdaniel Primary Care Provider: Jimmy Ballesteros MD Diagnoses at Discharge Discharge Diagnosis (1) ARDS (adult respiratory distress syndrome): Status: Acute (2) COVID-19: Status: Inactive (3) SLE (systemic lupus erythematosus): Status: Acute (4) 2019 novel coronavirus vaccination not done: Status: Acute Reason for Visit Reason for Visit: COVID POSITIVE/ RESPIRATORY DISTRESS Hospital Course Hospital Course 70 year old female diagnosed with COVID 19 on 05/01, unvaccinated, h/o SLE on rx with steroids and HCQS. Presenting with worsening dyspnea over the past few days, persisting cough. Discharged with home 02 on 05/08 from ER, became more dyspneic, ON NRB and then BIpap in the ER. Admitted in view of escalating 02 requirements. upon admission to the hospital patient was started on Remdesivir of which she completed a 5 day protocol. Addition was started on Decadron and empirically on antibiotics. Was requiring high-flow nasal cannula. This was eventually weaned to 3 L of O2. Patients overall condition improved. Her steroids were transitioned to p.o. prednisone taper from 40 mg down to 7.5 mg. Patient is on prednisone chronically.Discharged in stable condition. Physical Exam Narrative: EXAM NARRATIVE: General: Currently oxygen 3 L HEENT: PERRLA, pupils bilaterally equal and reactive, pallors not present Chest: Normal vesicular breath sounds, no added sounds, equal good air entry bilaterally CVS: S1-S2 regular, no murmurs, no tachycardia, no gallops, no rubs Abdomen: Soft, nontender, no organomegaly, bowel sounds present Neuro: No focal deficits, no facial deformity, AO x3, power 5/5 in all limbs Discharge Data Data Completed and Pending: Completed Studies During Hospitalization Category Date Time Status CT angio chest PE protcl 09775 Rout ine Cat Scan 05/14/21 06:18 Completed XR chest 1V lavon ble [id number] Routine Exams 05/20/21 07:00 Completed XR chest 1V lavon ble [id number] Stat Exams 05/13/21 19:08 Completed Vitals: Last Vital Signs Temp 97.8 F 05/22/21 12:00 Pulse 62 05/22/21 12:00 Resp 19 H 05/22/21 12:00 BP 136/79 05/22/21 12:00 Pulse Ox 92 05/22/21 12:00 Discharge Plan Discharge Patient Disposition: Home Condition: Stable Prescriptions: New prednisone 10 mg tablet See Rx Instructions .ROUTE .COMPLEX Qty: 36 RF: 0 Continued glucosamine sulfate 1,000 mg capsule 1,000 mg PO BEDTIME RF: 0 omega-3 fatty acids [Fish Oil Concentrate] 1,000 mg capsule 1,000 mg PO BEDTIME RF: 0 cetirizine [Zyrtec] 10 mg tablet 10 mg PO DAILY PRN (Reason: Allergy Symptoms) RF: 0 biotin 1,000 mcg tablet,chewable 1,000 mcg PO BEDTIME RF: 0 aspirin [Aspirin Low Dose] 81 mg tablet,delayed release (DR/EC) 81 mg PO BEDTIME RF: 0 alendronate [Fosamax] 70 mg tablet 70 mg PO Q7D RF: 0 cholecalciferol (vitamin D3) 25 mcg (1,000 unit) capsule 2,000 unit PO DAILY RF: 0 turmeric 400 mg Capsule 400 mg PO BEDTIME RF: 0 triamterene-hydrochlorothiazid 37.5-25 mg tablet 1 tab PO EVERY OTHER DAY RF: 0 omeprazole 20 mg capsule,delayed release(DR/EC) 20 mg PO BEDTIME RF: 0 hydroxychloroquine [Plaquenil] 200 mg tablet See Rx Instructions .ROUTE .COMPLEX RF: 0 Discontinued prednisone 2.5 mg tablet 2.5 mg PO DAILY RF: 0 prednisone 5 mg tablet 5 mg PO BEDTIME RF: 0 Hold Instructions: Resume on 05/15/21. dexamethasone 6 mg tablet 6 mg PO DAILY Qty: 7 RF: 0 Discharge Orders: Discharge Order (Routine); Ordered 05/22/21 Ordered By: Dawit Mcdaniel Other Ambulatory Orders: DME: Oxygen (Order) Location: None Selected Ordered By: Dawit Mcdaniel Referrals: Jimmy Ballesteros MD [Primary Care Provider] - 05/30/21 11:10 am (Please follow up with Dr. Harrison, pulmonology on 06-24-21 @1:10.) Discharge Diet: Usual diet Discharge Activity: Increase activity as tolerated Patient Instructions: Prednisone (By mouth), Acute Respiratory Distress Syndrome (DC), Hypoxia (GEN), Opioid Safety, Using Oxygen at Home Activity Restrictions/Additional Instructions: Please follow up with Dr. Jose Asher ( Pulmonary Medicine ) with in 1 week. Please call to make appointment for hospital follow up Discharge Attestations Time Spent in Discharge Care*: greater than 30 min Specific Discharge Activities: educating patient, educating and/or supporting family/caregiver, discussing with pcp/other providers, discussing with case management specialist/social workers/dc planners, documenting/other paperwork and evaluating patient/reviewing data Status at Discharge: Cognitive status at discharge: cognitively intact, Behavioral status at discharge: cooperative, Functional status at discharge: independent ambulation Overall status at discharge: patient is progressing back to baseline Quality Metrics Clinical Quality Measures During this hospital stay, did patient experience: None Coding Level of Care Code Acute Chg FW DC note Diagnoses ARDS (adult respiratory distress syndrome) J80 COVID-19 U07.1 SLE (systemic lupus erythematosus) M32.9 2019 novel coronavirus vaccination not done Z28.9
--- NOTE | 2021-05-22 13:30 | PC.NURSE ---
Reviewed patient discharge with patient at this time. Patient verbalized understanding of discharge instructions. Reviewed discharge instructions with patient's daughter at her private car as well who also verbalized understanding . Per Dr. Mcdaniel patient is no longer on quarantine as she was positive on the patient and daughter verbalized understanding. Patient is A&Ox3. respirations even and non-labored on 3 liters via nasal cannula. Patient wheel chaired to private car in the ambulance bay at this time. Patient was brought her home oxygen to her by her daughter and switched over to it at 3 liters at this time.
--- NOTE | 2021-05-28 11:06 | PC.SOCIAL ---
discharge follow up call made. patient is using 2L O2 at rest and 3L with exertion. Has appointment with pcp. Hasn't yet scheduled with pulmonology due to them being booked 1 month out. will make appointment if she feels like she needs the follow up.
== END 2021-05-22 13:40 | disposition home or self-care (01) | DRG 177 ==
LOC: ER 05-14 02:06 → ER IP 05-14 06:35 → MS 2A 05-14 15:26
PROVIDERS: Admitting Provider Student in an Organized Health Care Education/Training Program; Emergency Provider Emergency Medicine; PCP Pediatrics; Visit Provider Hospitalist
DX: U07.1 COVID-19 (principal); J12.82 Pneumonia due to coronavirus disease 2019; J80 Acute respiratory distress syndrome; I10 Essential (primary) hypertension; M35.3 Polymyalgia rheumatica; M32.9 Systemic lupus erythematosus, unspecified; Z79.52 Long term (current) use of systemic steroids; Z79.82 Long term (current) use of aspirin
CPT/HCPCS: 36415; 36600; 71045; 71275; 80053; 82728; 82803; 83605; 83615; 83735; 83880; 84145; 85025; 85378; 86140; 87040; 93005; 94640; 94660; 96365; 96367; 96372; 96375; 99291; J0456; J0696; J1100; J1650; J2405; J3535; J7050; J7626; Q9967

== ENCOUNTER → 2021-07-04 09:10 | Outpatient (BNVA) | payer MEDICARE, OTHER, SELFPAY | PROVIDERS: PCP Pediatrics; Visit Provider Internal Medicine Rheumatology | DX: L93.2 Other local lupus erythematosus (principal); R76.8 Other specified abnormal immunological findings in serum; M19.90 Unspecified osteoarthritis, unspecified site; Z79.899 Other long term (current) drug therapy; E58 Dietary calcium deficiency; G62.9 Polyneuropathy, unspecified; Z86.16 Personal history of COVID-19; Z86.73 Personal history of transient ischemic attack (TIA), and cerebral infarction without residual deficits | CPT/HCPCS: 99214 ==

== ENCOUNTER 2021-07-04 10:33 | Outpatient (CLI) | payer MEDICARE, OTHER, SELFPAY ==
[2021-07-04 11:19] LABS: Albumin Level 3.9 g/dL (3.5-5.2); Calcium 9.3 mg/dL (8.5-10.5)
== END 2021-07-04 10:34 | disposition home or self-care (01) ==
PROVIDERS: PCP Pediatrics; Visit Provider Internal Medicine Rheumatology
DX: E58 Dietary calcium deficiency (principal)
CPT/HCPCS: 36415; 82040; 82310

== ENCOUNTER → 2021-09-09 10:30 | Outpatient (BNVA) | payer MEDICARE, OTHER, SELFPAY | PROVIDERS: PCP Pediatrics; Visit Provider Internal Medicine Rheumatology | DX: M19.90 Unspecified osteoarthritis, unspecified site (principal); M32.9 Systemic lupus erythematosus, unspecified; Z79.899 Other long term (current) drug therapy | CPT/HCPCS: 36415; 85025; 87086 ==

== ENCOUNTER → 2021-11-04 10:12 | Outpatient (BNVA) | payer MEDICARE, OTHER, SELFPAY | PROVIDERS: PCP Pediatrics; Visit Provider Internal Medicine Rheumatology | DX: M32.9 Systemic lupus erythematosus, unspecified (principal); Z79.899 Other long term (current) drug therapy; M19.90 Unspecified osteoarthritis, unspecified site; R76.8 Other specified abnormal immunological findings in serum; G62.9 Polyneuropathy, unspecified | CPT/HCPCS: 99214 ==

== ENCOUNTER 2021-11-11 09:50 | Outpatient (CLI) | payer MEDICARE, OTHER, SELFPAY ==
[2021-11-11 10:57] LABS: Glomerular Filtration Rate 54.8 mL/min (90-130)
== END 2021-11-11 09:51 | disposition home or self-care (01) ==
PROVIDERS: PCP Pediatrics; Visit Provider Internal Medicine Rheumatology
DX: M32.9 Systemic lupus erythematosus, unspecified (principal); Z79.899 Other long term (current) drug therapy
CPT/HCPCS: 82565

== ENCOUNTER → 2022-02-18 14:40 | Outpatient (BNVA) | payer MEDICARE, OTHER, SELFPAY | PROVIDERS: PCP Pediatrics; Visit Provider Internal Medicine Rheumatology | DX: L93.2 Other local lupus erythematosus (principal); Z79.899 Other long term (current) drug therapy; M19.90 Unspecified osteoarthritis, unspecified site; R76.8 Other specified abnormal immunological findings in serum; G62.9 Polyneuropathy, unspecified; Z86.73 Personal history of transient ischemic attack (TIA), and cerebral infarction without residual deficits | CPT/HCPCS: 80076; 82565; 85025; 86140; 99214 ==

== ENCOUNTER 2022-03-05 08:56 | Outpatient (CLI) | payer MEDICARE, OTHER, SELFPAY ==
[2022-03-05 10:07] LABS: Add Urine Culture? No; Bilirubin Urine Neg (Negative); Blood Urine Neg (Negative); Glucose Urine UA Norm (Normal); Ketones Urine Negative (Negative); Leukocyte Esterase Urine Negative (Negative); Mucus Urine TRACE /hpf; Nitrate Urine Negative (Negative); Protein Urine Neg (Negative); RBC Urine 0-4 /hpf (0-2); Squamous Epithelial Cell Urine 0-4 /hpf (0-5); Urine Appearance Clear (CLEAR); Urine Color Yellow (Yellow); Urobilinogen Urine Norm (Negative); WBC Urine 0-4 /hpf (0-5); pH Urine 6 (5-7)
[2022-03-05 10:17] LABS: Urine Creatinine 137 mg/dL (28-217); Urine Protein Random 8 mg/dL
[2022-03-05 11:42] LABS: Blood Urea Nitrogen 32 mg/dL (8-23)
== END 2022-03-05 08:57 | disposition home or self-care (01) ==
LOC: LAB 08:59
PROVIDERS: PCP Pediatrics; Visit Provider Internal Medicine Rheumatology
DX: R79.89 Other specified abnormal findings of blood chemistry (principal)
CPT/HCPCS: 81001; 82565; 82570; 84156; 84520

== ENCOUNTER 2022-05-21 08:14 | Outpatient (CLI) | payer MEDICARE, OTHER, SELFPAY ==
[2022-05-21 08:42] LABS: Basophils % 0.5 %; Eosinophils # 0.1 10^3/uL (0.0-0.8); Eosinophils % 0.8 %; Hematocrit 47.8 % (37.0-47.0); Hemoglobin 15.2 g/dL (11.5-15.3); Lymphocytes # 1.4 10^3/uL (0.8-4.8); Lymphocytes % 21.6 %; Mean Corpuscular HGB Conc 31.8 g/dL (30.0-36.0); Mean Corpuscular Hemoglobin 29.8 pg (28.0-34.0); Mean Corpuscular Volume 93.7 fl (81-99); Mean Platelet Volume 10.3 fL (7.4-10.4); Monocytes # 0.6 10^3/uL (0.2-0.9); Monocytes % 9.9 %; Neutrophils # 4.19 10^3/uL (1.8-7.7); Neutrophils % 66.9 %; Nucleated Red Blood Cells % 0 %; Platelet Count 199 10^3/cmm (130-400); Red Cell Distribution Width 13.2 % (12.1-15.1); White Blood Count 6.3 10^3/uL (4.0-10.0)
[2022-05-21 09:20] LABS: Alanine Aminotransferase 27 U/L (0-33); Alkaline Phosphatase 57 U/L (35-105); Aspartate Amino Transferase 26 U/L (0-32); C Reactive Protein 6.1 mg/L (0.0-4.9); Globulin 2.9 g/dL (1.3-4.6); Total Bilirubin 0.3 mg/dL (0.15-1.2); Total Protein 6.9 g/dL (6.6-8.7)
== END 2022-05-21 08:15 | disposition home or self-care (01) ==
LOC: LAB 08:17
PROVIDERS: PCP Pediatrics; Visit Provider Internal Medicine Rheumatology
DX: M32.9 Systemic lupus erythematosus, unspecified (principal); Z79.899 Other long term (current) drug therapy
CPT/HCPCS: 36415; 80076; 82565; 85025; 86140

== ENCOUNTER → 2022-06-04 13:34 | Outpatient (BNVA) | payer MEDICARE, OTHER, SELFPAY | PROVIDERS: PCP Pediatrics; Visit Provider Internal Medicine Rheumatology | DX: M32.9 Systemic lupus erythematosus, unspecified (principal); Z79.899 Other long term (current) drug therapy; M19.90 Unspecified osteoarthritis, unspecified site; R76.8 Other specified abnormal immunological findings in serum; Z86.73 Personal history of transient ischemic attack (TIA), and cerebral infarction without residual deficits; G62.9 Polyneuropathy, unspecified | CPT/HCPCS: 99214 ==

== ENCOUNTER 2022-09-08 08:21 | Outpatient (CLI) | payer MEDICARE, OTHER, SELFPAY ==
[2022-09-08 08:48] LABS: Basophils % 0.3 %; Eosinophils # 0.1 10^3/uL (0.0-0.8); Eosinophils % 1.2 %; Hematocrit 48.5 % (37.0-47.0); Hemoglobin 15.8 g/dL (11.5-15.3); Lymphocytes # 1.2 10^3/uL (0.8-4.8); Lymphocytes % 19.8 %; Mean Corpuscular HGB Conc 32.6 g/dL (30.0-36.0); Mean Corpuscular Hemoglobin 30.5 pg (28.0-34.0); Mean Corpuscular Volume 93.6 fl (81-99); Mean Platelet Volume 10.2 fL (7.4-10.4); Monocytes # 0.6 10^3/uL (0.2-0.9); Monocytes % 10.3 %; Neutrophils # 4.02 10^3/uL (1.8-7.7); Neutrophils % 67.9 %; Nucleated Red Blood Cells % 0 %; Platelet Count 212 10^3/cmm (130-400); Red Blood Count 5.18 10^6/uL (4.1-5.3); Red Cell Distribution Width 12.8 % (12.1-15.1); White Blood Count 5.9 10^3/uL (4.0-10.0)
[2022-09-08 09:15] LABS: C Reactive Protein 14.4 mg/L (0.0-4.9); Complement C3 157 mg/dL (90-180)
[2022-09-08 10:37] LABS: Urine Color Yellow (Yellow)
[2022-09-08 10:38] LABS: Bilirubin Urine Neg (Negative); Blood Urine Neg (Negative); Glucose Urine UA Norm (Normal); Ketones Urine Negative (Negative); Leukocyte Esterase Urine Negative (Negative); Nitrate Urine Positive (Negative); Protein Urine Neg (Negative); Specific Gravity, Urine 1.025 (1.005-1.030); Urine Appearance Cloudy (CLEAR); Urobilinogen Urine Norm (Negative); pH Urine 5 (5-7)
[2022-09-08 10:49] LABS: RBC Urine 0-4 /hpf (0-2); WBC Urine 15-25 /hpf (0-5)
[2022-09-08 10:50] LABS: Bacteria Urine 3+ /hpf; Creatinine Urine, Random 157 mg/dL (28-217)
[2022-09-08 10:51] LABS: Add Urine Culture? Yes; Hyaline Casts Urine 0-4 /lpf
[2022-09-09 13:39] LABS: Creatinine, Random Urine 159 mg/dL (20-275); Protein, Total, Random 17 mg/dL (5-24); Protein/Creatinine Ratio 0.107 (0.024-0.184); Protein/Creatinine Ratio 107 mg/g creat (24-184)
[2022-09-09 15:55] LABS: Albumin,Urine Random 100 %; Alpha-1-Globulins Urine Random 0 %; Alpha-2-Globulins Urine Random 0 %; Beta-Globulin,Urine Random 0 %; Gamma Globulin,Urine Random 0 %
== END 2022-09-08 08:22 | disposition home or self-care (01) ==
LOC: LAB 08:24
PROVIDERS: PCP Pediatrics; Visit Provider Internal Medicine Rheumatology
DX: M32.9 Systemic lupus erythematosus, unspecified (principal); Z79.899 Other long term (current) drug therapy
CPT/HCPCS: 81001; 82565; 82570; 82575; 84156; 84166; 85025; 86140; 86160

== ENCOUNTER → 2022-10-08 12:55 | Outpatient (BNVA) | payer MEDICARE, OTHER, SELFPAY | PROVIDERS: PCP Pediatrics; Visit Provider Internal Medicine Rheumatology | DX: L93.2 Other local lupus erythematosus (principal); Z79.899 Other long term (current) drug therapy; M19.90 Unspecified osteoarthritis, unspecified site; R76.8 Other specified abnormal immunological findings in serum; Z86.73 Personal history of transient ischemic attack (TIA), and cerebral infarction without residual deficits; G62.9 Polyneuropathy, unspecified | CPT/HCPCS: 99214 ==

== ENCOUNTER 2022-11-14 09:09 | Outpatient (CLI) | payer MEDICARE, OTHER, SELFPAY ==
--- NOTE | 2022-11-14 09:30 | US_ITS ---
WS: [id number] RENAL ULTRASOUND HISTORY: M32.9 - Systemic lupus erythematosus, unspecified COMPARISON: None available. TECHNIQUE: 2-D and color Doppler imaging of the kidney submitted. Right kidney: 9.8 cm x 4.3 cm x 3.6 cm. Normal size kidney with increased echogenicity. Cortex is low normal at 1.0 cm. No hydronephrosis or solid mass. Left kidney: 9.0 cm x 3.4 cm x 4.0 cm. Low normal size kidney with increased echogenicity. No hydronephrosis. Cortex is low normal at 1.0 cm . Aorta: Mild atherosclerosis. No aneurysm. Urinary Bladder: Minimally distended. No mass identified. US/US renal BI* [id number] IMPRESSION: 1. Mild chronic medical renal disease. 2. No hydronephrosis or solid mass.
== END 2022-11-14 09:10 | disposition home or self-care (01) ==
LOC: RAD 09:13
PROVIDERS: PCP Pediatrics; Visit Provider Internal Medicine Rheumatology
DX: M32.9 Systemic lupus erythematosus, unspecified (principal); N18.9 Chronic kidney disease, unspecified
CPT/HCPCS: 76770

== ENCOUNTER → 2022-12-02 09:48 | Outpatient (BNVA) | payer MEDICARE, OTHER, SELFPAY | PROVIDERS: PCP Pediatrics; Visit Provider Nurse Practitioner Family | DX: R39.9 Unspecified symptoms and signs involving the genitourinary system (principal); N39.0 Urinary tract infection, site not specified | CPT/HCPCS: 81000; 87077; 87086; 87184 ==

== ENCOUNTER 2023-01-02 10:53 | Outpatient (CLI) | payer MEDICARE, OTHER, SELFPAY ==
[2023-01-02 11:43] LABS: Basophils % 0.5 %; Eosinophils # 0.1 10^3/uL (0.0-0.8); Eosinophils % 2.3 %; Hematocrit 44.3 % (37.0-47.0); Hemoglobin 14.1 g/dL (11.5-15.3); Lymphocytes # 1.5 10^3/uL (0.8-4.8); Lymphocytes % 26.7 %; Mean Corpuscular HGB Conc 31.8 g/dL (30.0-36.0); Mean Corpuscular Hemoglobin 29.8 pg (28.0-34.0); Mean Corpuscular Volume 93.7 fl (81-99); Monocytes # 0.6 10^3/uL (0.2-0.9); Monocytes % 10.6 %; Neutrophils # 3.29 10^3/uL (1.8-7.7); Neutrophils % 59.5 %; Nucleated Red Blood Cells % 0 %; Platelet Count 195 10^3/cmm (130-400); Red Blood Count 4.73 10^6/uL (4.1-5.3); Red Cell Distribution Width 13.1 % (12.1-15.1); White Blood Count 5.5 10^3/uL (4.0-10.0)
[2023-01-02 12:20] LABS: Alanine Aminotransferase 19 U/L (0-33); Albumin Level 3.7 g/dL (3.5-5.2); Alkaline Phosphatase 48 U/L (35-105); Aspartate Amino Transferase 20 U/L (0-32); C Reactive Protein 6.6 mg/L (0.0-4.9); Globulin 3.1 g/dL (1.3-4.6); Total Bilirubin 0.3 mg/dL (0.15-1.2); Total Protein 6.8 g/dL (6.6-8.7)
[2023-01-02 12:25] LABS: Blood Urine Neg (Negative); Glucose Urine UA Norm (Normal); Ketones Urine Negative (Negative); Protein Urine Neg (Negative); Urine Appearance Hazy (CLEAR); Urine Color Yellow (Yellow); pH Urine 5 (5-7)
[2023-01-02 12:26] LABS: Bacteria Urine TRACE /hpf; Bilirubin Urine Neg (Negative); Leukocyte Esterase Urine Negative (Negative); Mucus Urine 1+ /hpf; Nitrate Urine Negative (Negative); RBC Urine 0-4 /hpf (0-2); Urobilinogen Urine Norm (Negative); WBC Urine 0-4 /hpf (0-5)
[2023-01-02 12:46] LABS: Urine Creatinine 245 mg/dL (28-217)
[2023-01-02 12:52] LABS: Urine Protein Random 24 mg/dL
== END 2023-01-02 10:54 | disposition home or self-care (01) ==
LOC: LAB 10:56
PROVIDERS: PCP Pediatrics; Visit Provider Internal Medicine Rheumatology
DX: M32.9 Systemic lupus erythematosus, unspecified (principal); Z79.899 Other long term (current) drug therapy
CPT/HCPCS: 80076; 81001; 82565; 82570; 84156; 85025; 86140

== ENCOUNTER → 2023-01-26 12:54 | Outpatient (BNVA) | payer MEDICARE, OTHER, SELFPAY | PROVIDERS: PCP Pediatrics; Visit Provider Internal Medicine Rheumatology | DX: M32.9 Systemic lupus erythematosus, unspecified (principal); Z79.899 Other long term (current) drug therapy; M19.90 Unspecified osteoarthritis, unspecified site; R76.8 Other specified abnormal immunological findings in serum | CPT/HCPCS: 99214 ==

== ENCOUNTER 2023-05-05 08:14 | Outpatient (CLI) | payer MEDICARE, OTHER, SELFPAY ==
[2023-05-05 08:54] LABS: Basophils % 0.5 %; Eosinophils # 0.1 10^3/uL (0.0-0.8); Eosinophils % 1.6 %; Hematocrit 47.6 % (37.0-47.0); Hemoglobin 15.2 g/dL (11.5-15.3); Lymphocytes # 1.7 10^3/uL (0.8-4.8); Lymphocytes % 26.3 %; Mean Corpuscular HGB Conc 31.9 g/dL (30.0-36.0); Mean Corpuscular Hemoglobin 30.1 pg (28.0-34.0); Mean Corpuscular Volume 94.3 fl (81-99); Mean Platelet Volume 10.4 fL (7.4-10.4); Monocytes # 0.5 10^3/uL (0.2-0.9); Monocytes % 8.3 %; Neutrophils # 4.01 10^3/uL (1.8-7.7); Neutrophils % 62.8 %; Nucleated Red Blood Cells % 0 %; Platelet Count 197 10^3/cmm (130-400); Red Blood Count 5.05 10^6/uL (4.1-5.3); Red Cell Distribution Width 13.2 % (12.1-15.1); White Blood Count 6.4 10^3/uL (4.0-10.0)
[2023-05-05 09:13] LABS: Alanine Aminotransferase 22 U/L (0-33); Albumin Level 3.7 g/dL (3.5-5.2); Alkaline Phosphatase 51 U/L (35-105); Aspartate Amino Transferase 21 U/L (0-32); Globulin 3.1 g/dL (1.3-4.6); Total Bilirubin 0.3 mg/dL (0.15-1.2); Total Protein 6.8 g/dL (6.6-8.7)
[2023-05-05 09:14] LABS: Bacteria Urine TRACE /hpf; Bilirubin Urine Neg (Negative); Blood Urine Neg (Negative); Glucose Urine UA Norm (Normal); Ketones Urine Negative (Negative); Leukocyte Esterase Urine Negative (Negative); Mucus Urine 1+ /hpf; Nitrate Urine Negative (Negative); Protein Urine Neg (Negative); RBC Urine RARE /hpf (0-2); Squamous Epithelial Cell Urine 0-4 /hpf (0-5); Urine Color Yellow (Yellow); Urobilinogen Urine Norm (Negative); pH Urine 5 (5-7)
[2023-05-05 09:15] LABS: Urine Appearance SL Hazy (CLEAR)
[2023-05-05 09:22] LABS: Urine Creatinine 279 mg/dL (28-217); Urine Protein Random 16 mg/dL
== END 2023-05-05 08:15 | disposition home or self-care (01) ==
PROVIDERS: PCP Pediatrics; Visit Provider Internal Medicine Rheumatology
DX: M32.9 Systemic lupus erythematosus, unspecified (principal); Z79.899 Other long term (current) drug therapy
CPT/HCPCS: 36415; 80076; 81001; 82565; 82570; 84156; 85025; 86140

== ENCOUNTER → 2023-05-25 13:00 | Outpatient (BNVA) | payer MEDICARE, OTHER, SELFPAY | PROVIDERS: PCP Pediatrics; Visit Provider Internal Medicine Rheumatology | DX: Z79.899 Other long term (current) drug therapy; M19.90 Unspecified osteoarthritis, unspecified site; R76.8 Other specified abnormal immunological findings in serum; L93.1 Subacute cutaneous lupus erythematosus; Z86.73 Personal history of transient ischemic attack (TIA), and cerebral infarction without residual deficits; G62.9 Polyneuropathy, unspecified | CPT/HCPCS: 99214 ==

== ENCOUNTER 2023-08-20 09:36 | Outpatient (CLI) | payer MEDICARE, OTHER, SELFPAY ==
[2023-08-20 10:03] LABS: Basophils % 0.5 %; Eosinophils # 0.1 10^3/uL (0.0-0.8); Eosinophils % 1.8 %; Hematocrit 48.1 % (36-47); Lymphocytes # 1.4 10^3/uL (0.8-4.8); Lymphocytes % 22.4 %; Mean Corpuscular HGB Conc 31.8 g/dL (30-55); Mean Corpuscular Hemoglobin 30.3 pg (27-33); Mean Corpuscular Volume 95.2 fl (85-98); Mean Platelet Volume 10.3 fL (7.4-10.4); Monocytes # 0.5 10^3/uL (0.2-0.9); Monocytes % 8.6 %; Neutrophils # 4.08 10^3/uL (1.8-7.7); Neutrophils % 66.4 %; Nucleated Red Blood Cells % 0 %; Platelet Count 180 10^3/cmm (157-399); Red Blood Count 5.05 10^6/uL (3.85-5.65); Red Cell Distribution Width 13.2 % (12.1-15.1); White Blood Count 6.15 10^3/uL (3.29-11.43)
[2023-08-20 10:16] LABS: Alanine Aminotransferase 24 U/L (0-33); Alkaline Phosphatase 53 U/L (35-105); C Reactive Protein 7.5 mg/L (0.0-4.9); Globulin 3.4 g/dL (1.3-4.6); Total Bilirubin 0.3 mg/dL (0.15-1.2); Total Protein 7.4 g/dL (6.6-8.7)
[2023-08-20 10:33] LABS: Aspartate Amino Transferase 25 U/L (0-32)
[2023-08-20 12:52] LABS: Creatinine Urine, Random 113 mg/dL (28-217)
[2023-08-20 12:57] LABS: Urine Protein Random 7 mg/dL
[2023-08-20 13:16] LABS: Add Urine Culture? No; Bacteria Urine 2+ /hpf; Bilirubin Urine Neg (Negative); Blood Urine Neg (Negative); Glucose Urine UA Norm (Normal); Hyaline Casts Urine 0-4 /lpf; Ketones Urine Negative (Negative); Leukocyte Esterase Urine Trace (Negative); Mucus Urine TRACE /hpf; Nitrate Urine Negative (Negative); Protein Urine Neg (Negative); RBC Urine 0-4 /hpf (0-2); Squamous Epithelial Cell Urine 0-4 /hpf (0-5); Urine Appearance Clear (CLEAR); Urine Color Yellow (Yellow); Urobilinogen Urine Neg (Negative); pH Urine 5 (5-7)
== END 2023-08-20 09:37 | disposition home or self-care (01) ==
PROVIDERS: PCP Pediatrics; Visit Provider Internal Medicine Rheumatology
DX: M32.9 Systemic lupus erythematosus, unspecified (principal); Z79.899 Other long term (current) drug therapy
CPT/HCPCS: 36415; 80076; 81001; 82565; 82575; 84156; 85025; 86140

== ENCOUNTER → 2023-10-06 14:47 | Outpatient (BNVA) | payer MEDICARE, OTHER, SELFPAY | PROVIDERS: PCP Pediatrics; Visit Provider Internal Medicine Rheumatology | DX: Z79.899 Other long term (current) drug therapy (principal); M32.9 Systemic lupus erythematosus, unspecified; M19.90 Unspecified osteoarthritis, unspecified site; R76.8 Other specified abnormal immunological findings in serum | CPT/HCPCS: 87077; 87086; 87186; 99214 ==

== ENCOUNTER 2023-12-07 10:20 | Outpatient (CLI) | payer MEDICARE, OTHER, SELFPAY ==
[2023-12-07 11:07] LABS: Basophils % 0.3 %; Eosinophils # 0.2 10^3/uL (0.0-0.8); Eosinophils % 2.3 %; Lymphocytes # 1.1 10^3/uL (0.8-4.8); Lymphocytes % 15.5 %; Mean Corpuscular HGB Conc 32.4 g/dL (30-55); Mean Corpuscular Hemoglobin 30.8 pg (27-33); Mean Corpuscular Volume 95.2 fl (85-98); Mean Platelet Volume 10.4 fL (7.4-10.4); Monocytes # 0.7 10^3/uL (0.2-0.9); Monocytes % 10.1 %; Neutrophils # 5.04 10^3/uL (1.8-7.7); Neutrophils % 71.4 %; Nucleated Red Blood Cells % 0 %; Platelet Count 180 10^3/cmm (157-399); Red Blood Count 4.83 10^6/uL (3.85-5.65); Red Cell Distribution Width 13.8 % (12.1-15.1); White Blood Count 7.05 10^3/uL (3.29-11.43)
== END 2023-12-07 10:21 | disposition home or self-care (01) ==
LOC: LAB 10:20
PROVIDERS: PCP Pediatrics; Visit Provider Internal Medicine Rheumatology
DX: M32.9 Systemic lupus erythematosus, unspecified (principal); Z79.899 Other long term (current) drug therapy
CPT/HCPCS: 36415; 85025; 87086

== ENCOUNTER → 2024-02-15 12:54 | Outpatient (BNVA) | payer MEDICARE, OTHER, SELFPAY | PROVIDERS: PCP Pediatrics; Visit Provider Internal Medicine Rheumatology | DX: M32.9 Systemic lupus erythematosus, unspecified (principal); Z79.899 Other long term (current) drug therapy; M19.90 Unspecified osteoarthritis, unspecified site; R76.8 Other specified abnormal immunological findings in serum | CPT/HCPCS: 36415; 80076; 82565; 99214 ==

== ENCOUNTER 2024-02-24 08:06 | Outpatient (CLI) | payer MEDICARE, OTHER, SELFPAY ==
[2024-02-24 08:24] LABS: Basophils % 0.5 %; Eosinophils # 0.1 10^3/uL (0.0-0.8); Eosinophils % 1.4 %; Hematocrit 44.5 % (36-47); Lymphocytes # 1.1 10^3/uL (0.8-4.8); Lymphocytes % 19.1 %; Mean Corpuscular HGB Conc 32.1 g/dL (30-55); Mean Corpuscular Hemoglobin 30.6 pg (27-33); Mean Corpuscular Volume 95.3 fl (85-98); Mean Platelet Volume 9.8 fL (7.4-10.4); Monocytes # 0.5 10^3/uL (0.2-0.9); Monocytes % 8.6 %; Neutrophils # 4.02 10^3/uL (1.8-7.7); Neutrophils % 70.2 %; Nucleated Red Blood Cells % 0 %; Platelet Count 216 10^3/cmm (157-399); Red Blood Count 4.67 10^6/uL (3.85-5.65); Red Cell Distribution Width 13.4 % (12.1-15.1); White Blood Count 5.72 10^3/uL (3.29-11.43)
[2024-02-24 08:39] LABS: Blood Urea Nitrogen 28 mg/dL (8-23)
[2024-02-24 09:02] LABS: Bilirubin Urine Neg (Negative); Blood Urine Neg (Negative); Glucose Urine UA Norm (Normal); Ketones Urine Negative (Negative); Leukocyte Esterase Urine Negative (Negative); Nitrate Urine Negative (Negative); Protein Urine Neg (Negative); Urine Appearance Clear (CLEAR); Urine Color Yellow (Yellow); Urobilinogen Urine Norm (Negative); pH Urine 5 (5-7)
[2024-02-24 09:10] LABS: Add Urine Culture? No; Bacteria Urine 1+ /hpf; Mucus Urine 1+ /hpf; RBC Urine 0-4 /hpf (0-2); Squamous Epithelial Cell Urine 0-4 /hpf (0-5)
[2024-02-24 09:11] LABS: Complement C3 137 mg/dL (90-180)
[2024-02-24 09:17] LABS: Erythrocyte Sedimentation Rate 24 mm/hr (0-15)
[2024-02-24 09:19] LABS: Urine Creatinine 224 mg/dL (28-217); Urine Protein Random 13 mg/dL
== END 2024-02-24 08:07 | disposition home or self-care (01) ==
LOC: LAB 08:08
PROVIDERS: PCP Pediatrics; Visit Provider Internal Medicine Rheumatology
DX: M32.9 Systemic lupus erythematosus, unspecified (principal); Z79.899 Other long term (current) drug therapy; R76.8 Other specified abnormal immunological findings in serum
CPT/HCPCS: 36415; 81001; 82565; 82570; 84156; 84520; 85025; 85651; 86160

== ENCOUNTER 2024-04-15 08:09 | Outpatient (CLI) | payer MEDICARE, OTHER, SELFPAY ==
[2024-04-15 08:38] LABS: Basophils % 0.6 %; Eosinophils # 0.1 10^3/uL (0.0-0.8); Eosinophils % 1.2 %; Hematocrit 44.7 % (36-47); Lymphocytes # 1.6 10^3/uL (0.8-4.8); Lymphocytes % 24.5 %; Mean Corpuscular HGB Conc 32.2 g/dL (30-55); Mean Corpuscular Hemoglobin 30.3 pg (27-33); Mean Corpuscular Volume 94.1 fl (85-98); Mean Platelet Volume 9.8 fL (7.4-10.4); Monocytes # 0.6 10^3/uL (0.2-0.9); Monocytes % 9.1 %; Neutrophils # 4.23 10^3/uL (1.8-7.7); Neutrophils % 64.4 %; Nucleated Red Blood Cells % 0 %; Platelet Count 208 10^3/cmm (157-399); Red Blood Count 4.75 10^6/uL (3.85-5.65); Red Cell Distribution Width 12.8 % (12.1-15.1); White Blood Count 6.57 10^3/uL (3.29-11.43)
[2024-04-15 08:47] LABS: Albumin Level 3.7 g/dL (3.5-5.2); Alkaline Phosphatase 56 U/L (35-105); Aspartate Amino Transferase 24 U/L (0-32); C Reactive Protein 6.8 mg/L (0.0-4.9); Globulin 3.3 g/dL (1.3-4.6); Total Bilirubin 0.4 mg/dL (0.15-1.2)
[2024-04-15 08:58] LABS: Alanine Aminotransferase 23 U/L (0-33)
== END 2024-04-15 08:10 | disposition home or self-care (01) ==
PROVIDERS: PCP Pediatrics; Visit Provider Internal Medicine Rheumatology
DX: M32.9 Systemic lupus erythematosus, unspecified (principal); Z79.899 Other long term (current) drug therapy
CPT/HCPCS: 36415; 80076; 82565; 85025; 86140

== ENCOUNTER → 2024-06-17 07:09 | Outpatient (BNVA) | payer MEDICARE, OTHER, SELFPAY | PROVIDERS: PCP Pediatrics | DX: R30.0 Dysuria (principal) | CPT/HCPCS: 81000 ==

== ENCOUNTER 2024-08-02 17:16 | Emergency (ER) | payer MEDICARE, OTHER, SELFPAY ==
[2024-08-02 17:53] VITALS: BP 142/111; PULSE 81; RESP 16; TEMP 37; O2SAT 99
--- NOTE | 2024-08-02 20:41 | XRR_ITS ---
PROCEDURE INFORMATION: Exam: XR Lumbosacral Spine Exam date and time: 08/02/2024 9:07 PM Age: 73 years old Clinical indication: Low back pain; Additional info: Low back pain/injury after fall TECHNIQUE: Imaging protocol: Radiologic exam of the lumbosacral spine. Views: 2 or 3 views. COMPARISON: None. FINDINGS: Bones/joints: There are 6 ate-ugt-[id number] lumbar-type vertebral bodies without acute fracture or traumatic listhesis. Multilevel degenerative disc disease and facet arthrosis along with bilateral sacroiliac and hip degenerative joint disease. Soft tissues: Unremarkable. XR/XR lumbar spine 2-3V* [id number] IMPRESSION: No acute lumbar spine findings.
--- NOTE | 2024-08-02 20:48 | W.ED.BACK ---
HPI - Back Pain/Injury General: Chief Complaint: Back Pain/Injury Stated Complaint: low back pain Time Seen by Provider: 08/02/24 19:49 Source: patient Mode of arrival: ambulatory Limitations: no limitations History of Present Illness: Patient is a 73-year-old female presenting to the emergency department complaining of bilateral lower back pain for the past week. She does report an injury where she lifted something heavy, pain began suddenly afterwards and has gotten worse since. Worse with any movement whatsoever. She also notes that she fell earlier this year onto her tailbone, and is having pain in the similar area and would like an x-ray at this time. She has a history of lupus and takes 5 mg of prednisone every day along with hydroxychloroquine. She does not have any bowel or bladder incontinence. No nausea or vomiting, urinary symptoms, or other symptoms to report at this time. MD elicited complaint: back pain Onset (ago): week(s) Timing: constant and progressively worsening Severity: severe Location: right lower back and left lower back Radiation: none Exacerbating factors: movement Associated symptoms: Deny abdominal pain, chills, fever(s), nausea or vomiting Related Data Home Medications Medication Instructions Recorded Confirmed triamterene 37.5 1 tab PO EVERY OTHER DAY SEE 05/08/21 06/17/24 mg-hydrochlorothiazide 25 mg tablet PHARMACY COMMENTS multivitamin 1 tab PO DAILY 02/15/24 06/17/24 Previous Rx's Medication Instructions Recorded hydroxychloroquine 200 mg tablet See Rx Instructions .Route 02/15/24 .COMPLEX #135 tabs prednisone 5 mg tablet 5 mg PO DAILY #90 tabs 02/15/24 nitrofurantoin 100 mg PO Q12H 5 days #10 caps 06/17/24 monohydrate/macrocrystals 100 mg capsule (Macrobid) cyclobenzaprine 5 mg tablet 5 mg PO DAILY PRN muscle spasm #7 08/02/24 tabs ketorolac 10 mg tablet 10 mg PO Q8H PRN pain #15 tabs 08/02/24 Allergies Allergy/AdvReac Type Severity Reaction Status Date / Time naproxen [From Naprosyn] Allergy Mild ALGY-Rash Verified 06/17/24 07:15 celecoxib [From Celebrex] Allergy unknown Verified 06/17/24 07:15 Penicillins Allergy ALGY-Rash Verified 06/17/24 07:15 Sulfa (Sulfonamide Allergy ALGY-Rash Verified 06/17/24 07:15 Antibiotics) Review of Systems General: Reports: 10 or more systems reviewed and unremarkable except in HPI and below Const: Denies: fever(s) or chills Card: Denies: chest pain Resp: Denies: dyspnea or productive cough GI: Denies: abdominal pain, nausea, vomiting or diarrhea : Denies: flank pain Musc: Reports: back pain and limited range of motion; Denies: neck pain, extremity pain, extremity swelling, joint pain, joint swelling, joint redness, joint warmth or muscle weakness Skin/Breast: Denies: rash Neuro: Denies: headache(s), numbness in extremities or weakness in extremities PFSH ED PFSH: Medical History COVID-19 (~05/2021) 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 Inflammatory arthritis SLE (systemic lupus erythematosus) High risk medication use Immunization counseling Positive MARIA DE JESUS (antinuclear antibody) PMR (polymyalgia rheumatica) HTN (hypertension) Surgical History Hx of tonsillectomy History of 2 sections History of hysterectomy Family History Father Heart disease Other CAD (coronary artery disease) Diabetes Family history of premature coronary artery disease Hypertension Multiple sclerosis Rheumatoid arthritis Systemic lupus erythematosus (SLE) in adult Denies family history of Chronic kidney disease (CKD) Cancer Stroke Social History Smoking and tobacco/nicotine status: never used tobacco/nicotine Alcohol intake: never Substance/Drug Use: never Physical Exam Const: COMMON NORMALS: patient oriented x3, no limitations, healthy appearing, alert and well nourished OTHER: Appears uncomfortable in bed. HENMT: COMMON NORMALS: normocephalic and atraumatic HEAD & SCALP: normocephalic and atraumatic Neck/C-Spine: COMMON NORMALS: full ROM, supple and no meningeal signs Resp: COMMON NORMALS: normal respiratory effort, No use of accessory muscles and clear to auscultation bilaterally AUSCULTATION: clear to auscultation bilaterally Cardio: COMMON NORMALS: regular rate and regular rhythm RATE: regular rate RHYTHM: regular rhythm Back/Pelvis: OTHER: Back normal to appearance. No significant reproducible tenderness to palpation of the paralumbar muscles or lumbar spinous process. Straight leg raise positive on the left. Extremity: COMMON NORMALS: normal to inspection, full ROM, capillary refill normal, no joint enlargement and no clubbing, cyanosis or edema Neuro: COMMON NORMALS: patient oriented x3, moves all extremities, no focal motor deficits, no sensory deficits noted and deep tendon reflexes 2+ bilaterally SENSORIUM/ORIENTATION: Yes alert MENINGEAL SIGNS: Yes no meningeal signs Skin: COMMON NORMALS: no rashes or lesions noted GENERAL SKIN EXAM: no rashes or lesions noted Course Vital Signs: Vital signs: Vital Signs Temperature 98.6 F 08/02/24 17:53 Pulse Rate 76 08/02/24 22:22 Respiratory Rate 16 08/02/24 21:07 Blood Pressure 135/66 08/02/24 22:22 Pulse Oximetry 98 08/02/24 22:22 Oxygen Delivery Me thod Room Air 08/02/24 21:07 MDM - Back Pain/Injury Medical Decision Making Patient presented with a week of worsening back pain after lifting something heavy. Family's request that an x-ray be obtained to rule out any acute abnormalities, this was negative. She reported significant improvement after receiving IM Norflex, Decadron, and Toradol here. Will send a few doses of low-dose cyclobenzaprine to take at home before bed, and she is requesting some Toradol to take for breakthrough pain. Will be discharged home with other therapies discussed, return precautions given. Labs Radiology Impressions Lumbar Spine X-Ray 08/02/24 20:41 IMPRESSION: No acute lumbar spine findings. All radiology interpretation(s) finalized by discharge Discharge Plan Discharge Patient Disposition: Home Clinical Impression: Strain of lumbar region Qualifiers: Encounter type: initial encounter Qualified Code(s): S39.012A - Strain of muscle, fascia and tendon of lower back, initial encounter Condition: Stable Prescriptions: New cyclobenzaprine 5 mg tablet 5 mg PO DAILY PRN (Reason: muscle spasm) Qty: 7 0RF Rx Instructions: Take 1 tablet as needed before bedtime ketorolac 10 mg tablet 10 mg PO Q8H PRN (Reason: pain) Qty: 15 0RF No Action nitrofurantoin monohyd/m-cryst [Macrobid] 100 mg capsule 100 mg PO Q12H 5 Days Qty: 10 0RF Rx Instructions: must administer with a meal/food multivitamin Tablet 1 tab PO DAILY hydroxychloroquine 200 mg tablet See Rx Instructions .ROUTE .COMPLEX Qty: 135 1RF Dose Instruction: ALTERNATE TAKING 1 TABLET BY MOUTH DAILY WITH 2 TABS DAILY EVERY MORNING Rx Instructions: ALTERNATE TAKING 1 TABLET BY MOUTH DAILY WITH 2 TABS DAILY EVERY MORNING prednisone 5 mg tablet 5 mg PO DAILY Qty: 90 1RF triamterene-hydrochlorothiazid 37.5-25 mg tablet 1 tab PO EVERY OTHER DAY Discharge Orders: Discharge ED (Routine); Ordered 08/02/24 Ordered By: Robert Kearney Referrals: Jimmy Ballesteros MD [Primary Care Provider] - Patient Instructions: Low Back Strain (ED), Lower Back Exercises (ED) Activity Restrictions/Additional Instructions: Continue taking your daily prednisone. Take cyclobenzaprine as needed, and take Toradol for breakthrough pain. Low back exercises. Your x-ray today was normal as discussed. Please follow-up with primary care for any further evaluation. You may also apply ice and heat for added relief. Rest and recovery. I hope your pain starts to improve. Coding Level of Care Code ED [facility] for Steffanie Lowe
[2024-08-02] MEDS: dexamethasone 10 mg/mL INJ IM (20:59)
[2024-08-02] MEDS: ketorolac 60 mg/2 mL INJ IM (21:02)
[2024-08-02] MEDS: orphenadrine 30 mg/mL Inj 2 mL 60 MG IM (21:02)
[2024-08-02 21:07] VITALS: BP 138/69; PULSE 68; RESP 16; O2SAT 98
[2024-08-02 22:22] VITALS: BP 135/66; PULSE 76; O2SAT 98
== END 2024-08-02 22:23 | disposition home or self-care (01) ==
PROVIDERS: Emergency Provider Physician Assistant; PCP Pediatrics
DX: S39.012A Strain of muscle, fascia and tendon of lower back, initial encounter (principal); X58.XXXA Exposure to other specified factors, initial encounter; I10 Essential (primary) hypertension
CPT/HCPCS: 72100; 96372; 99284; J1100; J1885; J2360

== ENCOUNTER → 2024-08-23 14:24 | Outpatient (BNVA) | payer MEDICARE, OTHER, SELFPAY | PROVIDERS: PCP Pediatrics; Visit Provider Orthopaedic Surgery | DX: M54.9 Dorsalgia, unspecified (principal); S32.030A Wedge compression fracture of third lumbar vertebra, initial encounter for closed fracture; X58.XXXA Exposure to other specified factors, initial encounter | CPT/HCPCS: 36415; 72100; 80053; 81001; 85025; 87077; 87086; 87186; 99204 ==

== ENCOUNTER 2024-08-24 05:36 | Day surgery (SDC) | payer MEDICARE, OTHER, SELFPAY ==
[2024-08-24] VITALS (9 sets, daily range): BP systolic 122–166; BP diastolic 70–93; PULSE 69–91; RESP 10–37; TEMP 36.6–37.1; O2SAT 90–100; BMI 26.2
--- NOTE | 2024-08-24 05:57 | SC_ITS ---
WS: [id number] INTRAOPERATIVE TECHNIQUE: 4 Spot fluoroscopic images for intraoperative purposes. FLUOROSCOPY TIME: 49.4 seconds CLINICAL INFORMATION: Surgery FINDINGS: Fluoroscopy used for intraoperative kyphoplasty purposes. Kyphoplasty performed L3 vertebral body. SC/C-arm FL for Kyphoplasty IMPRESSION: Images obtained for intraoperative purposes.
[2024-08-24] MEDS: sodium chloride 0.9% 1,000 ML 30 ML IV (06:33)
--- NOTE | 2024-08-24 06:39 | W.PM.OPSUD ---
Surgery/Procedure H&P Update DATE OF PROCEDURE: August 24, 2024 DATE H&P PERFORMED: 08/23/24 H&P UPDATE INFORMATION: I have reviewed H&P completed within last 30 days, I have examined patient prior to procedure and No changes to prior documentation PREOP DIAGNOSIS: Right intertrochanteric hip fracture PLANNED PROCEDURE: Operation Date: 08/24/24 07:00 Proposed Procedures p Kyphoplasty(Not Applicable) - Benny Isbell DO
--- NOTE | 2024-08-24 06:49 | ANES.PREANE2 ---
Pre-Anesthetic Assessment Height/Weight: Height 1.6 m Weight 67.132 kg O2 Del Method Room Air 08/24/24 06:22 Preop Diagnosis: Right intertrochanteric hip fracture Operation Date: 08/24/24 07:00 Proposed Procedures p Kyphoplasty(Not Applicable) - Benny Isbell, Familial anesthetic complications: PONV Was Beta Oly taken within 24 hours: N/A Was Clonidine taken within 24 hours: N/A Last intake: Intake Last Liquid Date 08/23/24 Last Liquid Time 22:00 Last Solid Date 08/23/24 Last Solid Time 22:00 Social No alcohol and No tobacco Exam alert, oriented x 3, clear to auscultation bilaterally and regular rate & rhythm Airway Mallampati: Class II Dentition: full Musc/skel SLE on steroids Anesthetic Plan ASA status: 2 Anesthesia: General Risk of > 500 ml blood loss (7ml/kg in children): No Medications/Allergies Home Medications Medication Instructions Recorded Confirmed Last Taken Type triamterene 37.5 1 tab PO DAILY SEE PHARMACY 05/08/21 08/23/24 08/23/24 History mg-hydrochlorothiazide 25 mg tablet COMMENTS hydroxychloroquine 200 mg tablet See Rx Instructions .Route 02/15/24 08/23/24 08/23/24 Rx .COMPLEX #135 tabs multivitamin 1 tab PO DAILY 02/15/24 08/23/24 08/23/24 History prednisone 5 mg tablet 5 mg PO DAILY #90 tabs 02/15/24 08/23/24 08/23/24 Rx tramadol 50 mg tablet 50 mg PO Q8H PRN pain 14 days #42 08/23/24 08/24/24 08/23/24 Rx tabs Allergies Allergy/AdvReac Type Severity Reaction Status Date / Time naproxen [From Naprosyn] Allergy Mild ALGY-Rash Verified 08/24/24 06:16 celecoxib [From Celebrex] Allergy unknown Verified 08/24/24 06:16 Penicillins Allergy ALGY-Rash Verified 08/24/24 06:16 Sulfa (Sulfonamide Allergy ALGY-Rash Verified 08/24/24 06:16 Antibiotics) Current Medications Generic Name Dose Route Start Last Admin Trade Name Freq PRN Reason Stop Dose Admin Sodium Chloride 1,000 mls @ 30 mls/hr 08/24/24 06:30 08/24/24 06:33 Sodium Chloride 0.9% IV 30 mls/hr .Q24H DAVID Administration PFSH Anesthesia Medical History COVID-19 (~05/2021) 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 Inflammatory arthritis SLE (systemic lupus erythematosus) High risk medication use Immunization counseling Positive MARIA DE JESUS (antinuclear antibody) PMR (polymyalgia rheumatica) HTN (hypertension) Surgical History Hx of tonsillectomy History of 2 sections History of hysterectomy Family History Father Heart disease Other CAD (coronary artery disease) Diabetes Family history of premature coronary artery disease Hypertension Multiple sclerosis Rheumatoid arthritis Systemic lupus erythematosus (SLE) in adult Denies family history of Chronic kidney disease (CKD) Cancer Stroke Social History Smoking and tobacco/nicotine status: unknown if used tobacco/nicotine Alcohol intake: never Substance/Drug Use: never Data Anesthesia Cardiac Studies: No Data to Display
[2024-08-24] MEDS: scopolamine 1.5 Patch 1 PATCH TRANSDERMA (07:00)
[2024-08-24] MEDS: clindamycin 600 MG/50 ML PREMIX 100 MG IV (07:08)
[2024-08-24] MEDS: lidocaine-epi 1% PF 1:200,000 30 mL SDV INJECTION (07:30)
--- NOTE | 2024-08-24 08:00 | PM.OP ---
Operative Report Date of procedure: August 24, 2024 Pre-op diagnosis: L3 osteoporotic wedge traumatic compression fracture Post-op diagnosis: same Procedure done: L3 kyphoplasty Surgeon: Benny Isbell DO Estimated blood loss (mL): 5 Procedure: L3 kyphoplasty Patient brought the operative suite after undergoing anesthesia patient was placed in the prone position. All areas of impingement were well-padded. Patient was prepped and draped normal sterile fashion. C-arm was brought in AP and lateral fluoroscopy confirmed the level of the fracture at L3. Skin incision was then made lateral to the left pedicle of L3. The starting awl was inserted into the left pedicle. The drill was then inserted through the left pedicle. Followed by the balloon. Balloon was inflated then deflated. The balloon was then removed. The cement was then injected. AP lateral fluoroscopy ensured the cement were in good position. Once the cement hardened the tubes were removed. AP lateral fluoroscopy ensured that the cement had good spread throughout the vertebrae and had some leakage into the disc base superiorly. Wound was irrigated closed with nylon stitch and sterile dressing was applied and patient was transferred to the PACU in stable condition.
--- NOTE | 2024-08-24 09:30 | ANE.PACU2 ---
Inpatient post-anesthesia follow up: Airway intact: Yes Vital signs: Temperature 98.8 F Pulse Rate 69 Respiratory Rate 18 Blood Pressure 133/74 Pulse Oximetry 95 Oxygen Delivery Me thod Room Air Oxygen Flow Rate 8 Fraction of Inspir ed Oxygen Hydration adequate: Yes Nausea and vomiting: No Pain level: 1 Mental status: Baseline
--- NOTE | 2024-08-26 15:26 | W.PM.OPSFHP ---
Same Day Surgery H&P Indication for Procedure/HPI DATE OF PROCEDURE: August 24, 2024 CHIEF COMPLAINT/INDICATIONFOR SURGICAL PROCEDURE: hip pain PREOP DIAGNOSIS: Right intertrochanteric hip fracture PLANNED PROCEDURE: Operation Date: 08/24/24 07:00 Proposed Procedures p Kyphoplasty(Not Applicable) - Benny Isbell, DO Medications/Allergies* Home Medications Medication Instructions Recorded Confirmed Type triamterene 37.5 1 tab PO DAILY SEE PHARMACY 05/08/21 08/23/24 History mg-hydrochlorothiazide 25 mg tablet COMMENTS multivitamin 1 tab PO DAILY 02/15/24 08/23/24 History Allergies/Adverse Reactions Allergy/AdvReac Type Severity Reaction Status Date / Time naproxen [From Naprosyn] Allergy Mild ALGY-Rash Verified 08/24/24 06:16 celecoxib [From Celebrex] Allergy unknown Verified 08/24/24 06:16 Penicillins Allergy ALGY-Rash Verified 08/24/24 06:16 Sulfa (Sulfonamide Allergy ALGY-Rash Verified 08/24/24 06:16 Antibiotics) Pertinent History/Comorbid Conditions* Medical History (Updated 08/10/24 @ 00:00 by MARIELA Fowler) COVID-19 (~05/2021) 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 Inflammatory arthritis SLE (systemic lupus erythematosus) High risk medication use Immunization counseling Positive MARIA DE JESUS (antinuclear antibody) PMR (polymyalgia rheumatica) HTN (hypertension) Surgical History (Updated 02/02/20 @ 12:52 by Adelfo Arceo MD) Hx of tonsillectomy History of 2 sections History of hysterectomy Family History (Updated 02/02/20 @ 12:05 by Macie Ramsey LPN) Rheumatoid arthritis Diabetes CAD (coronary artery disease) Heart disease Father Systemic lupus erythematosus (SLE) in adult Family history of premature coronary artery disease Multiple sclerosis Hypertension Denies family history of Chronic kidney disease (CKD) Cancer Stroke Social History Smoking and tobacco/nicotine status: unknown if used tobacco/nicotine Alcohol intake: never Substance/Drug Use: never Pertinent Exam Findings alert, oriented x 3 and procedure specific exam findings Recommendations Surgery/Procedure today Coding Level of Care Code Acute Code for Steffanie Lowe
== END 2024-08-24 09:30 | disposition home or self-care (01) ==
PROVIDERS: PCP Pediatrics; Visit Provider Orthopaedic Surgery
PROC: (CPT 22514; principal; 2024-08-24 07:00)
DX: S32.030A Wedge compression fracture of third lumbar vertebra, initial encounter for closed fracture (principal); X58.XXXA Exposure to other specified factors, initial encounter; Y99.9 Unspecified external cause status; I10 Essential (primary) hypertension
CPT/HCPCS: 22514; 76000; J0330; J1100; J2405; J2704; J3010; J3490; J7030

== ENCOUNTER 2024-09-05 14:23 | Emergency (ER) | payer MEDICARE, OTHER, SELFPAY ==
[2024-09-05] VITALS (7 sets, daily range): BP systolic 98–124; BP diastolic 54–76; PULSE 68–95; RESP 16–18; TEMP 36.8; O2SAT 95–100; BMI 25.7
--- NOTE | 2024-09-05 16:07 | ED_ITS ---
HPI - Extremity Problem General: Chief complaint: Extremity Problem,Nontraumatic Stated complaint: laila feet pain Time Seen by Provider: 09/05/24 15:45 Related Data Home Medications Medication Instructions Recorded Confirmed triamterene 37.5 1 tab PO DAILY SEE PHARMACY 05/08/21 08/23/24 mg-hydrochlorothiazide 25 mg tablet COMMENTS multivitamin 1 tab PO DAILY 02/15/24 08/23/24 Previous Rx's Medication Instructions Recorded hydroxychloroquine 200 mg tablet See Rx Instructions .Route 02/15/24 .COMPLEX #135 tabs prednisone 5 mg tablet 5 mg PO DAILY #90 tabs 02/15/24 tramadol 50 mg tablet 50 mg PO Q8H PRN pain 14 days #42 08/23/24 tabs ciprofloxacin HCl 500 mg tablet 500 mg PO Q12H 10 days #20 tabs 08/24/24 Allergies Allergy/AdvReac Type Severity Reaction Status Date / Time naproxen [From Naprosyn] Allergy Mild ALGY-Rash Verified 08/24/24 06:16 celecoxib [From Celebrex] Allergy unknown Verified 08/24/24 06:16 Penicillins Allergy ALGY-Rash Verified 08/24/24 06:16 Sulfa (Sulfonamide Allergy ALGY-Rash Verified 08/24/24 06:16 Antibiotics) PFSH ED PFSH: Medical History COVID-19 (~05/2021) 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 Inflammatory arthritis SLE (systemic lupus erythematosus) High risk medication use Immunization counseling Positive MARIA DE JESUS (antinuclear antibody) PMR (polymyalgia rheumatica) HTN (hypertension) Surgical History Hx of tonsillectomy History of 2 sections History of hysterectomy Family History Father Heart disease Other CAD (coronary artery disease) Diabetes Family history of premature coronary artery disease Hypertension Multiple sclerosis Rheumatoid arthritis Systemic lupus erythematosus (SLE) in adult Denies family history of Chronic kidney disease (CKD) Cancer Stroke Social History Smoking and tobacco/nicotine status: unknown if used tobacco/nicotine Alcohol intake: never Substance/Drug Use: never Course Vital Signs: Vital signs: Vital Signs Temperature 98.2 F 09/05/24 14:30 Pulse Rate 86 09/05/24 14:30 Respiratory Rate 18 09/05/24 14:30 Blood Pressure 110/69 09/05/24 14:30 Pulse Oximetry 97 09/05/24 14:30 Oxygen Delivery Me thod Room Air 09/05/24 14:30 Discharge Plan Discharge Condition: Stable Prescriptions: No Action multivitamin Tablet 1 tab PO DAILY hydroxychloroquine 200 mg tablet See Rx Instructions .ROUTE .COMPLEX Qty: 135 1RF Dose Instruction: ALTERNATE TAKING 1 TABLET BY MOUTH DAILY WITH 2 TABS DAILY EVERY MORNING Rx Instructions: ALTERNATE TAKING 1 TABLET BY MOUTH DAILY WITH 2 TABS DAILY EVERY MORNING prednisone 5 mg tablet 5 mg PO DAILY Qty: 90 1RF tramadol 50 mg tablet 50 mg PO Q8H MDD 3 PRN (Reason: pain) 14 Days Qty: 42 0RF ciprofloxacin HCl 500 mg tablet 500 mg PO Q12H 10 Days Qty: 20 0RF triamterene-hydrochlorothiazid 37.5-25 mg tablet 1 tab PO DAILY Referrals: Jimmy Ballesteros MD [Primary Care Provider] - Coding Level of Care Code ED Medical Superintendent for Steffanie Lowe
--- NOTE | 2024-09-05 16:08 | ED_ITS ---
Documented by User: DAYNA Shin 09/05/24 16:43 HPI - Back Pain/Injury 2 General: Chief Complaint: Extremity Problem,Nontraumatic Stated Complaint: laila feet pain Time Seen by Provider: 09/05/24 15:45 Source: patient and family (daughter) Mode of arrival: wheelchair Limitations: no limitations History of Present Illness: Patient is a nice 73-year-old female who presents to the ED today along with her daughter for evaluation of lower back pain as well as odorous urine and pain in her feet. Patient states she underwent kyphoplasty by Dr. Isbell on 08/24. She was reportedly found to have a UTI prior to surgery so was placed on ciprofloxacin twice daily for 10 days. Patient states her lower back pain has not changed since the surgery and she is still having discomfort. She states over the past 2 days she began having pain to the dorsal aspects of her bilateral feet. She is not having leg pain, numbness, tingling, loss of sensation. She has not noticed any swelling to the legs or feet. No color or temperature changes. Patient reports cloudy and odorous urine. She is not having dysuria, frequency, urgency. No flank pain. No vomiting. She states she is having difficulty ambulating secondary to the pain in her feet and lower back. MD elicited complaint: back pain Pertinent past history: back surgery Onset (ago): day(s) Timing: constant Severity: severe Pain scale (0-10): 8 Similar Symptoms Previously: Yes Radiation: none Exacerbating factors: movement and walking Relieving factors: none Associated symptoms: Reports difficulty walking (due to back pain/feet pain); Deny abdominal pain, chills, change in bowel habits, dysuria, fatigue, fever(s), nausea, urinary urgency or vomiting Work related injury: No Related Data Home Medications Medication Instructions Recorded Confirmed triamterene 37.5 1 tab PO DAILY 05/08/21 09/05/24 mg-hydrochlorothiazide 25 mg tablet multivitamin 1 tab PO DAILY 02/15/24 09/05/24 alendronate 70 mg tablet 70 mg PO Q7D 09/05/24 09/05/24 Previous Rx's Medication Instructions Recorded hydroxychloroquine 200 mg tablet See Rx Instructions .Route 02/15/24 .COMPLEX #135 tabs prednisone 5 mg tablet 5 mg PO DAILY #90 tabs 02/15/24 tramadol 50 mg tablet 50 mg PO Q8H PRN pain 14 days #42 08/23/24 tabs nitrofurantoin 100 mg PO BID 7 days #14 caps 09/05/24 monohydrate/macrocrystals 100 mg capsule (Macrobid) prednisone 20 mg tablet 40 mg (2 x 20 mg) PO ONCE 5 days 09/05/24 #10 tabs Allergies Allergy/AdvReac Type Severity Reaction Status Date / Time naproxen [From Naprosyn] Allergy Mild ALGY-Rash Verified 08/24/24 06:16 celecoxib [From Celebrex] Allergy unknown Verified 08/24/24 06:16 Penicillins Allergy ALGY-Rash Verified 08/24/24 06:16 Sulfa (Sulfonamide Allergy ALGY-Rash Verified 08/24/24 06:16 Antibiotics) Review of Systems 2 Const: Denies: fever(s), chills, body aches, fatigue or malaise Card: Denies: chest pain Resp: Denies: dyspnea GI: Denies: abdominal pain, nausea, vomiting, diarrhea or change in bowel habits : Reports: other (cloudy, odorous urine); Denies: flank pain, difficulty voiding, dysuria, urinary frequency, urinary urgency, urinary hesitancy or pelvic pain Musc: Reports: back pain and extremity pain (bilateral dorsal feet); Denies: neck pain, extremity swelling, joint pain or joint swelling Skin/Breast: Denies: rash, pruritus or erythema Neuro: Reports: difficulty walking (due to back pain/feet pain); Denies: headache(s), numbness in extremities, weakness in extremities or sensory changes PFSH ED 2 PFSH: Medical History COVID-19 (~05/2021) 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 Inflammatory arthritis SLE (systemic lupus erythematosus) High risk medication use Immunization counseling Positive MARIA DE JESUS (antinuclear antibody) PMR (polymyalgia rheumatica) HTN (hypertension) Surgical History Hx of tonsillectomy History of 2 sections History of hysterectomy Family History Father Heart disease Other CAD (coronary artery disease) Diabetes Family history of premature coronary artery disease Hypertension Multiple sclerosis Rheumatoid arthritis Systemic lupus erythematosus (SLE) in adult Denies family history of Chronic kidney disease (CKD) Cancer Stroke Social History Smoking and tobacco/nicotine status: unknown if used tobacco/nicotine Alcohol intake: never Substance/Drug Use: never Physical Exam 2 Const: COMMON NORMALS: no acute distress, average body habitus, patient oriented x3, no limitations, healthy appearing, alert and well nourished G ENERAL APPEARANCE: cooperative ORIENTATION/CONSCIOUSNESS: Yes awake, Yes oriented to person, Yes oriented to place and Yes oriented to time Resp: COMMON NORMALS: normal respiratory effort and clear to auscultation bilaterally AUSCULTATION: clear to auscultation bilaterally Cardio: COMMON NORMALS: regular rate and regular rhythm RATE: regular rate RHYTHM: regular rhythm GI: COMMON NORMALS: Normal to inspection, nondistended, normoactive bowel sounds present, Soft to palpation, non-tender, No hepatosplenomegaly present and no masses PALPATION: Yes Soft to palpation and Yes No hepatosplenomegaly present : COMMON NORMALS: Yes no CVA tenderness BLADDER/KIDNEY EXAM: Yes no CVA tenderness Back/Pelvis: COMMON NORMALS: no CVA tenderness LUMBAR SPINE/LOWER BACK: Yes paraspinal muscle tenderness PELVIS: Yes buttocks normal and No sciatic notch tenderness SACRUM: no tenderness COCCYX: no tenderness OTHER: pain across lower back; her small kyphoplasty incision appears clean and well healed-one intact stitch present Extremity: COMMON NORMALS: normal to inspection, full ROM, capillary refill normal, no joint enlargement, no clubbing, cyanosis or edema, no calf tenderness and no pedal edema GENERAL: Yes normal exam except as noted OTHER: TTP dorsal bilateral feet; no edema or color/temp changes normal; sensation normal; DP/PT pulses normal Neuro: COMMON NORMALS: patient oriented x3, moves all extremities, no focal motor deficits and no sensory deficits noted SENSORIUM/ORIENTATION: Yes alert, Yes oriented to person, Yes oriented to place and Yes oriented to time Skin: COMMON NORMALS: no rashes or lesions noted GENERAL SKIN EXAM: no rashes or lesions noted Course 2 ED course: Urine culture from her UA prior to surgery was obtained. She did grow E. coli ESBL resistant to Ciprofloxacin. She will need to be covered with antibiotics for this. Will give her IV pain medication, steroids, anti-inflammatories and see how she ambulates here in the emergency department. Care being transferred to Alberto Kearney PA-C at shift change ES She does have follow-up with Dr. Isbell scheduled. Vital Signs: Vital signs: Vital Signs Temperature 98.2 F 09/05/24 14:30 Pulse Rate 74 09/05/24 17:04 Respiratory Rate 16 09/05/24 17:04 Blood Pressure 124/54 09/05/24 17:04 Pulse Oximetry 100 09/05/24 17:04 Oxygen Delivery Me thod Room Air 09/05/24 17:04 MDM - Back Pain/Injury Labs 09/05/24 16:29 09/05/24 16:29 Laboratory Results WBC 10.76 10^3/uL (3.29-11.43) 09/05/24 16:29 RBC 5.32 10^6/uL (3.85-5.65) 09/05/24 16:29 Hgb 15.70 g/dL (11.27-16.99) 09/05/24 16:29 Hct 50.4 % (36-47) H 09/05/24 16:29 MCV 94.7 fl (85-98) 09/05/24 16:29 MCH 29.5 pg (27-33) 09/05/24 16:29 MCHC 31.2 g/dL (30-55) 09/05/24 16:29 RDW 13.3 % (12.1-15.1) 09/05/24 16:29 Plt Count 232 10^3/cmm (157-399) 09/05/24 16:29 MPV 9.6 fL (7.4-10.4) 09/05/24 16:29 Neut % (Auto) 78.9 % 09/05/24 16: Lymph % (Auto) 7.5 % 09/05/24 16:29 [place] % (Auto) 12.5 % 09/05/24 16:29 Eos % (Auto) 0.3 % 09/05/24 16:29 Baso % (Auto) 0.3 % 09/05/24 16:29 Neut # (Auto) 8.50 10^3/uL (1.8-7.7) H 09/05/24 16:29 Lymph # (Auto) 0.8 10^3/uL (0.8-4.8) 09/05/24 16:29 [place] # (Auto) 1.3 10^3/uL (0.2-0.9) H 09/05/24 16:29 Eos # (Auto) 0.0 10^3/uL (0.0-0.8) 09/05/24 16:29 Baso # (Auto) 0.0 10^3/uL (0.0-0.1) 09/05/24 16:29 Nucleated RBC % (auto) 0 % 09/05/24 16: Nucleated RBCs # 0.0 /100WBC 09/05/24 16:29 Sodium 135 mmol/L (136-145) L 09/05/24 16:29 Potassium 4.2 mmol/L (3.5-5.1) 09/05/24 16: Chloride 98 mmol/L (98-107) 09/05/24 16:29 Carbon Dioxide 28 mmol/L (22-29) 09/05/24 16:29 Anion Gap 13.2 (5-19) 09/05/24 16:29 BUN 19 mg/dL (8-23) 09/05/24 16:29 Creatinine 1.0 mg/dL (0.5-0.9) H 09/05/24 16:29 GFR Calculation Not Reportable 09/05/24 16:29 Glucose 84 mg/dL (65-115) 09/05/24 16: Calculated Osmolality 281 mOsm/kg (285-295) L 09/05/24 16:29 Calcium 9.6 mg/dL (8.5-10.5) 09/05/24 16:29 Total Bilirubin 0.7 mg/dL (0.15-1.2) 09/05/24 16:29 AST 22 U/L (0-32) 09/05/24 16:29 ALT 27 U/L (0-33) 09/05/24 16:29 Alkaline Phosphatase 87 U/L (35-105) 09/05/24 16:29 Total Protein 8.0 g/dL (6.6-8.7) 09/05/24 16:29 Albumin 3.8 g/dL (3.5-5.2) 09/05/24 16:29 Globulin 4.2 g/dL (1.3-4.6) 09/05/24 16:29 Urine Color Yellow (Yellow) 09/05/24 16:11 Urine Appearance Clear (CLEAR) 09/05/24 16:11 Urine pH 6.5 (5-7) 09/05/24 16:11 Ur Specific [place] 1.012 (1.005-1.030) 09/05/24 16:11 Urine Protein Negative (Negative) 09/05/24 16:11 Urine Glucose (UA) Negative (Normal) 09/05/24 16:11 Urine Ketones Negative (Negative) 09/05/24 16:11 Urine Blood Negative (Negative) 09/05/24 16:11 Urine Nitrate Positive (Negative) A 09/05/24 16:11 Urine Bilirubin Negative (Negative) 09/05/24 16:11 Urine Urobilinogen 0.2 mg/dL (Negative) 09/05/24 16:11 Ur Leukocyte Esterase Trace (Negative) A 09/05/24 16:11 Urine RBC 0-2 /hpf (0-2) 09/05/24 16:11 Urine WBC 6-10 /hpf (0-5) 09/05/24 16:11 Ur Squamous Epith Cells 0-5 /hpf (0-5) 09/05/24 16:11 Amorphous Sediment Not Reportable 09/05/24 16:11 Urine Bacteria 4+ /hpf (NONE) H 09/05/24 16:11 Hyaline Casts 0.40 /lpf 09/05/24 16:11 Discharge Plan Discharge Patient Disposition: Home Clinical Impression: Acute UTI, Postoperative back pain Condition: Stable Prescriptions: New prednisone 20 mg tablet 40 mg PO ONCE 5 Days Qty: 10 0RF nitrofurantoin monohyd/m-cryst [Macrobid] 100 mg capsule 100 mg PO BID 7 Days Qty: 14 0RF Rx Instructions: must administer with a meal/food No Action multivitamin Tablet 1 tab PO DAILY hydroxychloroquine 200 mg tablet See Rx Instructions .ROUTE .COMPLEX Qty: 135 1RF Dose Instruction: ALTERNATE TAKING 1 TABLET BY MOUTH DAILY WITH 2 TABS DAILY EVERY MORNING Rx Instructions: Take 1 tablet by mouth daily and 1.5 tablets the next day alternating. prednisone 5 mg tablet 5 mg PO DAILY Qty: 90 1RF tramadol 50 mg tablet 50 mg PO Q8H MDD 3 PRN (Reason: pain) 14 Days Qty: 42 0RF triamterene-hydrochlorothiazid 37.5-25 mg tablet 1 tab PO DAILY alendronate 70 mg tablet 70 mg PO Q7D Rx Instructions: on Thursday Discharge Orders: Discharge ED (Routine); Ordered 09/05/24 Ordered By: Robert Kearney Referrals: Jimmy Ballesteros MD [Primary Care Provider] - Patient Instructions: Opioid Safety, Pain Management Activity Restrictions/Additional Instructions: Take Macrobid twice daily for 7 days. Please take prednisone 40 mg once a day, you may taper this to 20 mg once a day as you see improvement of your symptoms. A referral has been placed for urology, await phone call to schedule appointment. Keep follow-up appointment with rheumatology tomorrow. Follow-up with your Ortho/spine surgeon. Begin taking tramadol daily, and care with transferring/ambulating. Drink plenty of fluids. If you have any new concerning symptoms, or your condition is not improving, return to the emergency department. Sign Out Sign Out Data: Patient Sign Out occurred on 09/05/24 at 17:09. Patient's care was discussed, and care was transferred from DAYNA Shin to DAYAN Rodríguez. Coding Level of Care Code ED Security Sales Consultant for [employer] Documented by User: DAYNA Rodríguez 09/05/24 18:32 HPI - Back Pain/Injury 2 General: Chief Complaint: Extremity Problem,Nontraumatic Stated Complaint: laila feet pain Time Seen by Provider: 09/05/24 15:45 Related Data Home Medications Medication Instructions Recorded Confirmed triamterene 37.5 1 tab PO DAILY 05/08/21 09/05/24 mg-hydrochlorothiazide 25 mg tablet multivitamin 1 tab PO DAILY 02/15/24 09/05/24 alendronate 70 mg tablet 70 mg PO Q7D 09/05/24 09/05/24 Previous Rx's Medication Instructions Recorded hydroxychloroquine 200 mg tablet See Rx Instructions .Route 02/15/24 .COMPLEX #135 tabs prednisone 5 mg tablet 5 mg PO DAILY #90 tabs 02/15/24 tramadol 50 mg tablet 50 mg PO Q8H PRN pain 14 days #42 08/23/24 tabs nitrofurantoin 100 mg PO BID 7 days #14 caps 09/05/24 monohydrate/macrocrystals 100 mg capsule (Macrobid) prednisone 20 mg tablet 40 mg (2 x 20 mg) PO ONCE 5 days 09/05/24 #10 tabs Allergies Allergy/AdvReac Type Severity Reaction Status Date / Time naproxen [From Naprosyn] Allergy Mild ALGY-Rash Verified 08/24/24 06:16 celecoxib [From Celebrex] Allergy unknown Verified 08/24/24 06:16 Penicillins Allergy ALGY-Rash Verified 08/24/24 06:16 Sulfa (Sulfonamide Allergy ALGY-Rash Verified 08/24/24 06:16 Antibiotics) PFSH ED 2 PFSH: Medical History COVID-19 (~05/2021) 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 Inflammatory arthritis SLE (systemic lupus erythematosus) High risk medication use Immunization counseling Positive MARIA DE JESUS (antinuclear antibody) PMR (polymyalgia rheumatica) HTN (hypertension) Surgical History Hx of tonsillectomy History of 2 sections History of hysterectomy Family History Father Heart disease Other CAD (coronary artery disease) Diabetes Family history of premature coronary artery disease Hypertension Multiple sclerosis Rheumatoid arthritis Systemic lupus erythematosus (SLE) in adult Denies family history of Chronic kidney disease (CKD) Cancer Stroke Social History Smoking and tobacco/nicotine status: unknown if used tobacco/nicotine Alcohol intake: never Substance/Drug Use: never Course 2 Vital Signs: Vital signs: Vital Signs Temperature 98.2 F 09/05/24 14:30 Pulse Rate 74 09/05/24 17:04 Respiratory Rate 16 09/05/24 17:04 Blood Pressure 124/54 09/05/24 17:04 Pulse Oximetry 100 09/05/24 17:04 Oxygen Delivery Me thod Room Air 09/05/24 17:04 MDM - Back Pain/Injury Medical Decision Making Care of patient transferred to al by daysflft provider. Had a kyphoplasty 2 weeks ago, has since been also treated for UTI with ciprofloxacin. The urinalysis with culture showing resistance to Cipro, and she has continued to have bilateral low back pain and has since developed some pain to the dorsum of the right foot. Also has a history of lupus and is on 5 mg of prednisone daily. She was prescribed tramadol for pain, but stated she does not take this as she has a preference to not take narcotic pain medications. However family present was concerned with patient's difficulty with ambulation and difficulty transferring. Basic lab work was obtained and unremarkable. Family wanted kidneys checked out, creatinine was just barely elevated however normal BUN. Urinalysis did show persistence of an infection, when I discussed with patient and family plan for referral to urology, they state that they are in the works of doing this as this is not the first time she has dealt with a resistant urinary tract infection. She is ambulated after being given IV pain medications and steroid, and is noting that she feels much better and comfortable going home and ambulating with walker. Of note she has follow-up with rheumatology tomorrow, also instructed her to speak with Dr. Isbell's office to see if they can get her in sooner for general reevaluation. Urinary culture did show susceptibility to Macrobid, so we will treat with this, as likely her low back pain related to this over postoperative pain from the simple kyphoplasty she had. Patient and family are comfortable with discharge home at this time, and to have pain medications at home already. Will send in short course of stronger prednisone taper, and general return precautions were given to which patient and family understand. Labs 09/05/24 16:29 09/05/24 16:29 Laboratory Results WBC 10.76 10^3/uL (3.29-11.43) 09/05/24 16: RBC 5.32 10^6/uL (3.85-5.65) 09/05/24 16: Hgb 15.70 g/dL (11.27-16.99) 09/05/24 16: Hct 50.4 % (36-47) H 09/05/24 16: MCV 94.7 fl (85-98) 09/05/24 16: MCH 29.5 pg (27-33) 09/05/24 16: MCHC 31.2 g/dL (30-55) 09/05/24 16: RDW 13.3 % (12.1-15.1) 09/05/24 16: Plt Count 232 10^3/cmm (157-399) 09/05/24 16: MPV 9.6 fL (7.4-10.4) 09/05/24 16: Neut % (Auto) 78.9 % 09/05/24 16: Lymph % (Auto) 7.5 % 09/05/24 16: [place] % (Auto) 12.5 % 09/05/24 16: Eos % (Auto) 0.3 % 09/05/24 16: Baso % (Auto) 0.3 % 09/05/24 16: Neut # (Auto) 8.50 10^3/uL (1.8-7.7) H 09/05/24 16: Lymph # (Auto) 0.8 10^3/uL (0.8-4.8) 09/05/24 16: [place] # (Auto) 1.3 10^3/uL (0.2-0.9) H 09/05/24 16:29 Eos # (Auto) 0.0 10^3/uL (0.0-0.8) 09/05/24 16: Baso # (Auto) 0.0 10^3/uL (0.0-0.1) 09/05/24 16: Nucleated RBC % (auto) 0 % 09/05/24 16: Nucleated RBCs # 0.0 /100WBC 09/05/24 16: Sodium 135 mmol/L (136-145) L 09/05/24 16: Potassium 4.2 mmol/L (3.5-5.1) 09/05/24 16: Chloride 98 mmol/L (98-107) 09/05/24 16: Carbon Dioxide 28 mmol/L (22-29) 09/05/24 16: Anion Gap 13.2 (5-19) 09/05/24 16:29 BUN 19 mg/dL (8-23) 09/05/24 16:29 Creatinine 1.0 mg/dL (0.5-0.9) H 09/05/24 16:29 GFR Calculation Not Reportable 09/05/24 16:29 Glucose 84 mg/dL (65-115) 09/05/24 16:29 Calculated Osmolality 281 mOsm/kg (285-295) L 09/05/24 16:29 Calcium 9.6 mg/dL (8.5-10.5) 09/05/24 16:29 Total Bilirubin 0.7 mg/dL (0.15-1.2) 09/05/24 16: AST 22 U/L (0-32) 09/05/24 16: ALT 27 U/L (0-33) 09/05/24 16: Alkaline Phosphatase 87 U/L (35-105) 09/05/24 16:29 Total Protein 8.0 g/dL (6.6-8.7) 09/05/24 16:29 Albumin 3.8 g/dL (3.5-5.2) 09/05/24 16:29 Globulin 4.2 g/dL (1.3-4.6) 09/05/24 16:29 Urine Color Yellow (Yellow) 09/05/24 16:11 Urine Appearance Clear (CLEAR) 09/05/24 16:11 Urine pH 6.5 (5-7) 09/05/24 16:11 Ur Specific [place] 1.012 (1.005-1.030) 09/05/24 16:11 Urine Protein Negative (Negative) 09/05/24 16:11 Urine Glucose (UA) Negative (Normal) 09/05/24 16:11 Urine Ketones Negative (Negative) 09/05/24 16:11 Urine Blood Negative (Negative) 09/05/24 16:11 Urine Nitrate Positive (Negative) A 09/05/24 16:11 Urine Bilirubin Negative (Negative) 09/05/24 16:11 Urine Urobilinogen 0.2 mg/dL (Negative) 09/05/24 16:11 Ur Leukocyte Esterase Trace (Negative) A 09/05/24 16:11 Urine RBC 0-2 /hpf (0-2) 09/05/24 16:11 Urine WBC 6-10 /hpf (0-5) 09/05/24 16:11 Ur Squamous Epith Cells 0-5 /hpf (0-5) 09/05/24 16:11 Amorphous Sediment Not Reportable 09/05/24 16:11 Urine Bacteria 4+ /hpf (NONE) H 09/05/24 16:11 Hyaline Casts 0.40 /lpf 09/05/24 16:11 No radiology studies performed this visit Discharge Plan Discharge Patient Disposition: Home Clinical Impression: Acute UTI, Postoperative back pain Condition: Stable Prescriptions: New prednisone 20 mg tablet 40 mg PO ONCE 5 Days Qty: 10 0RF nitrofurantoin monohyd/m-cryst [Macrobid] 100 mg capsule 100 mg PO BID 7 Days Qty: 14 0RF Rx Instructions: must administer with a meal/food No Action multivitamin Tablet 1 tab PO DAILY hydroxychloroquine 200 mg tablet See Rx Instructions .ROUTE .COMPLEX Qty: 135 1RF Dose Instruction: ALTERNATE TAKING 1 TABLET BY MOUTH DAILY WITH 2 TABS DAILY EVERY MORNING Rx Instructions: Take 1 tablet by mouth daily and 1.5 tablets the next day alternating. prednisone 5 mg tablet 5 mg PO DAILY Qty: 90 1RF tramadol 50 mg tablet 50 mg PO Q8H MDD 3 PRN (Reason: pain) 14 Days Qty: 42 0RF triamterene-hydrochlorothiazid 37.5-25 mg tablet 1 tab PO DAILY alendronate 70 mg tablet 70 mg PO Q7D Rx Instructions: on Thursday Discharge Orders: Discharge ED (Routine); Ordered 09/05/24 Ordered By: Robert Kearney Referrals: Jimmy Ballesteros MD [Primary Care Provider] - Patient Instructions: Opioid Safety, Pain Management Activity Restrictions/Additional Instructions: Take Macrobid twice daily for 7 days. Please take prednisone 40 mg once a day, you may taper this to 20 mg once a day as you see improvement of your symptoms. A referral has been placed for urology, await phone call to schedule appointment. Keep follow-up appointment with rheumatology tomorrow. Follow-up with your Ortho/spine surgeon. Begin taking tramadol daily, and care with transferring/ambulating. Drink plenty of fluids. If you have any new concerning symptoms, or your condition is not improving, return to the emergency department. Sign Out Sign Out Data: Patient Sign Out occurred on 12/02/24 at 17:09. Patient's care was discussed, and care was transferred from DAYNA Shin to DAYNA Rodríguez. Coding Level of Care Code ED Security Sales Consultant for Steffanie Lowe
[2024-09-05 16:18] LABS: Bilirubin Urine Negative (Negative); Blood Urine Negative (Negative); Glucose Urine UA Negative (Normal); Ketones Urine Negative (Negative); Leukocyte Esterase Urine Trace (Negative); Nitrate Urine Positive (Negative); Protein Urine Negative (Negative); Specific Gravity, Urine 1.012 (1.005-1.030); Urine Appearance Clear (CLEAR); Urine Color Yellow (Yellow); Urobilinogen Urine 0.2 mg/dL (Negative); pH Urine 6.5 (5-7)
[2024-09-05 16:23] LABS: Add Urine Microscopic? YES; Bacteria Urine 4+ /hpf; RBC Urine 0-2 /hpf (0-2); Squamous Epithelial Cell Urine 0-5 /hpf (0-5)
[2024-09-05 16:44] LABS: Basophils % 0.3 %; Eosinophils % 0.3 %; Hematocrit 50.4 % (36-47); Lymphocytes # 0.8 10^3/uL (0.8-4.8); Lymphocytes % 7.5 %; Mean Corpuscular HGB Conc 31.2 g/dL (30-55); Mean Corpuscular Hemoglobin 29.5 pg (27-33); Mean Corpuscular Volume 94.7 fl (85-98); Mean Platelet Volume 9.6 fL (7.4-10.4); Monocytes # 1.3 10^3/uL (0.2-0.9); Monocytes % 12.5 %; Neutrophils % 78.9 %; Nucleated Red Blood Cells % 0 %; Platelet Count 232 10^3/cmm (157-399); Red Blood Count 5.32 10^6/uL (3.85-5.65); Red Cell Distribution Width 13.3 % (12.1-15.1); White Blood Count 10.76 10^3/uL (3.29-11.43)
[2024-09-05] MEDS: ketorolac 30 mg/mL INJ 15 MG IVP (16:57)
[2024-09-05] MEDS: morphine 4 mg/mL SDV 1 mL IVP (16:59)
[2024-09-05 17:01] LABS: Alanine Aminotransferase 27 U/L (0-33); Albumin Level 3.8 g/dL (3.5-5.2); Alkaline Phosphatase 87 U/L (35-105); Anion Gap 13.2 (5-19); Aspartate Amino Transferase 22 U/L (0-32); Blood Urea Nitrogen 19 mg/dL (8-23); Calcium 9.6 mg/dL (8.5-10.5); Carbon Dioxide 28 mmol/L (22-29); Chloride 98 mmol/L (98-107); Creatinine Clr Calc Pharmacy 47.4865; Globulin 4.2 g/dL (1.3-4.6); Glucose 84 mg/dL (65-115); Osmolality Calculated 281 mOsm/kg (285-295); Potassium 4.2 mmol/L (3.5-5.1); Sodium 135 mmol/L (136-145); Total Bilirubin 0.7 mg/dL (0.15-1.2)
[2024-09-05] MEDS: dexamethasone 10 mg/mL INJ 6 MG IVP (17:03)
[2024-09-05] MEDS: ondansetron 2 mg/ML SDV 2 mL 4 MG IVP (17:13)
[2024-09-05] MEDS: nitrofurantoin SR (BID) 100 mg Capsule PO (17:50)
--- NOTE | 2024-09-07 08:28 | DCPLANNER ---
Referral sent to [facility]
== END 2024-09-05 18:51 | disposition home or self-care (01) ==
PROVIDERS: Physician Assistant; Emergency Provider Physician Assistant; PCP Pediatrics
DX: N39.0 Urinary tract infection, site not specified (principal); G89.18 Other acute postprocedural pain; I10 Essential (primary) hypertension
CPT/HCPCS: 36415; 80053; 81001; 85025; 96374; 96375; 99284; J1100; J1885; J2270; J2405

== ENCOUNTER → 2024-09-06 10:10 | Outpatient (BNVA) | payer MEDICARE, OTHER, SELFPAY | PROVIDERS: PCP Pediatrics; Visit Provider Internal Medicine Rheumatology | DX: M32.9 Systemic lupus erythematosus, unspecified (principal); M19.90 Unspecified osteoarthritis, unspecified site; R76.8 Other specified abnormal immunological findings in serum; G62.9 Polyneuropathy, unspecified; Z79.899 Other long term (current) drug therapy | CPT/HCPCS: 99214 ==

== ENCOUNTER → 2024-09-13 15:31 | Outpatient (BNVA) | payer MEDICARE, OTHER, SELFPAY | PROVIDERS: PCP Pediatrics; Visit Provider Orthopaedic Surgery | DX: N39.0 Urinary tract infection, site not specified (principal); Z48.89 Encounter for other specified surgical aftercare | CPT/HCPCS: 81001; 99024 ==

== ENCOUNTER 2024-10-10 06:00 | Outpatient (RCR) | payer MEDICARE, OTHER, SELFPAY | END 2024-11-04 23:59 | disposition home or self-care (01) | LOC: SPT 06:00 | PROVIDERS: PCP Pediatrics; Visit Provider Orthopaedic Surgery | DX: M54.9 Dorsalgia, unspecified (principal); G89.29 Other chronic pain | CPT/HCPCS: 97110; 97161 ==

== ENCOUNTER 2024-11-05 06:30 | Outpatient (RCR) | payer MEDICARE, OTHER, SELFPAY | END 2024-12-02 23:59 | disposition home or self-care (01) | LOC: SPT 06:30 | PROVIDERS: PCP Pediatrics; Visit Provider Orthopaedic Surgery | DX: M54.9 Dorsalgia, unspecified (principal); G89.29 Other chronic pain | CPT/HCPCS: 97110 ==

== ENCOUNTER 2024-11-15 07:16 | Outpatient (CLI) | payer MEDICARE, OTHER, SELFPAY ==
--- NOTE | 2024-11-15 07:31 | US_ITS ---
WS: [id number] RENAL ULTRASOUND HISTORY: UTI COMPARISON: 11/14/2022 TECHNIQUE: 2-D and color Doppler imaging of the kidney submitted. Right kidney: 8.9 cm x 4.5 cm x 4.7 cm. Cortex: 1.3 cm Low normal size kidney. No hydronephrosis or significant cortical thinning. Mild increased echogenicity. Left kidney: 8.8 cm x 5.0 cm x 4.7 cm. Cortex: 1.0 cm Low normal size kidney. Increased echogenicity throughout the kidney. No hydronephrosis or mass. Aorta: Normal. Urinary Bladder: Minimally distended. US/US renal BI* [id number] IMPRESSION: 1. Low normal size kidneys. Very similar as compared to 11/14/2022. 2. No hydronephrosis or solid mass. 3. Mild chronic medical renal disease.
== END 2024-11-15 07:17 | disposition home or self-care (01) ==
LOC: RAD 07:17
PROVIDERS: PCP Pediatrics; Visit Provider Nurse Practitioner Family
DX: N39.0 Urinary tract infection, site not specified (principal); N28.9 Disorder of kidney and ureter, unspecified; R93.421 Abnormal radiologic findings on diagnostic imaging of right kidney; R93.422 Abnormal radiologic findings on diagnostic imaging of left kidney
CPT/HCPCS: 76770

== ENCOUNTER 2024-12-03 06:00 | Outpatient (RCR) | payer MEDICARE, OTHER, SELFPAY | END 2024-12-23 14:22 | disposition home or self-care (01) | LOC: SPT 06:00 | PROVIDERS: PCP Pediatrics; Visit Provider Orthopaedic Surgery | DX: M54.9 Dorsalgia, unspecified (principal); G89.29 Other chronic pain | CPT/HCPCS: 97110 ==

== ENCOUNTER → 2025-06-15 14:19 | Outpatient (BNVA) | payer MEDICARE, OTHER, SELFPAY | PROVIDERS: PCP Pediatrics; Visit Provider Internal Medicine Rheumatology | DX: M32.9 Systemic lupus erythematosus, unspecified (principal); Z79.899 Other long term (current) drug therapy; M19.90 Unspecified osteoarthritis, unspecified site; M35.9 Systemic involvement of connective tissue, unspecified; R76.8 Other specified abnormal immunological findings in serum; G62.9 Polyneuropathy, unspecified | CPT/HCPCS: 80076; 82306; 82565; 85025; 85651; 86140; 99214 ==

== ENCOUNTER 2025-09-14 08:01 | Outpatient (CLI) | payer MEDICARE, OTHER, SELFPAY ==
[2025-09-14 09:03] LABS: Hematocrit 48.0 % (36-47); Hemoglobin 15.30 g/dL (11.27-16.99); Mean Corpuscular HGB Conc 31.9 g/dL (30-55); Mean Corpuscular Hemoglobin 29.5 pg (27-33); Mean Corpuscular Volume 92.5 fl (85-98); Nucleated Red Blood Cells % 0 %; Platelet Count 202 10^3/cmm (157-399); Red Blood Count 5.19 10^6/uL (3.85-5.65); White Blood Count 6.34 10^3/uL (3.29-11.43)
[2025-09-14 09:34] LABS: Alanine Aminotransferase 26 U/L (0-33); Albumin Level 3.9 g/dL (3.5-5.2); Alkaline Phosphatase 61 U/L (35-105); Globulin 3.3 g/dL (1.3-4.6); Total Protein 7.2 g/dL (6.6-8.7)
[2025-09-14 09:56] LABS: Aspartate Amino Transferase 28 U/L (0-32)
== END 2025-09-14 08:02 | disposition home or self-care (01) ==
LOC: LAB 08:02
PROVIDERS: PCP Pediatrics; Visit Provider Internal Medicine Rheumatology
DX: Z79.899 Other long term (current) drug therapy (principal)
CPT/HCPCS: 36415; 80076; 82565; 85025; 85651; 86140